=== PATIENT | female | born 1960 | race Caucasian/White ===

== ENCOUNTER → 2016-09-29 | Outpatient (CLI) | payer OTHER ==
[~2016-09-29] MED LIST: ASPI-435 PO; ATEN-173 PO; BUPR-83 PO; CALCTAB5 PO; EFFSR150 PO; EFFSR75 PO; LAMO150T32 PO; MULT-506 PO; ZNTT/150 PO
--- NOTE | 2016-09-29 13:58 | MAMMOGRAPHY REPORT ---
BILATERAL DIGITAL SCREENING MAMMOGRAM TOMOSYNTHESIS WITH CAD: 09/29/2016 TECHNIQUE: Breast tomosynthesis in addition to standard 2D mammography was performed. Current study was also evaluated with a Computer Aided Detection (CAD) system. COMPARISON: Comparison is made to exams dated: 10/01/2015 mammogram, 09/12/2013 mammogram, 09/18/2014 m ammogram, 09/17/2012 mammogram, and 09/01/2011 mammogram - [facility]. BREAST COMPOSITION: There are scattered areas of fibroglandular density in both breasts. FINDINGS: No suspicious masses, calcifications, or areas of architectural distortion are noted in e ither breast. There has been no significant interval change compared to prior exams. Scattered bilat eral benign-appearing calcifications are not significantly changed. IMPRESSION: ACR BI-RADS CATEGORY 2: BENIGN There is no mammographic evidence of malignancy. A 1 year screening mammogram is recommended. The p atient will receive written notification of the results. Approximately 10% of breast cancers are not detected with mammography. A negative mammographic repor t should not delay biopsy if a clinically suggestive mass is present. Tamiko Owens M.D. /:09/29/2016 10:41:35 Cable Worker Helper: Stephanie VELAZQUEZ(Ab)(M), [facility] letter sent: Normal 1/2 BI-RADS Code: ACR BI-RADS Category 2: Benign
== END | disposition home or self-care (01) ==
LOC: C.MAMM 09:14
PROVIDERS: ATTEND Obstetrics & Gynecology
DX: Z12.31 Encounter for screening mammogram for malignant neoplasm of breast (principal)

== ENCOUNTER → 2017-10-05 | Outpatient (CLI) | payer OTHER ==
[~2017-10-05] MED LIST changes: +LAMO150T PO; -LAMO150T32 PO; +RANI150T85 PO; -ZNTT/150 PO
--- NOTE | 2017-10-05 13:36 | MAMMOGRAPHY REPORT ---
BILATERAL DIGITAL SCREENING MAMMOGRAM TOMOSYNTHESIS WITH CAD: 10/05/2017 CLINICAL HISTORY: Routine screening. TECHNIQUE: Breast tomosynthesis in addition to standard 2D mammography was performed. Current study was also evaluated with a Computer Aided Detection (CAD) system. COMPARISON: Comparison is made to exams dated: 09/29/2016 mammogram, 10/01/2015 mammogram, 09/18/2014 m ammogram, 09/12/2013 mammogram, 09/06/2012 mammogram, and 09/01/2011 mammogram - [facility]. BREAST COMPOSITION: There are scattered areas of fibroglandular density in both breasts. FINDINGS: No suspicious masses, calcifications, or areas of architectural distortion are noted in ei ther breast. There has been no significant interval change compared to prior exams. Scattered bilater al benign-appearing calcifications are not significantly changed. IMPRESSION: ACR BI-RADS CATEGORY 2: BENIGN There is no mammographic evidence of malignancy. A 1 year screening mammogram is recommended. The pa tient will receive written notification of the results. Approximately 10% of breast cancers are not detected with mammography. A negative mammographic report should not delay biopsy if a clinically suggestive mass is present. Tamiko Owens M.D. ah/:10/05/2017 12:37:18 Lap Grinder: Negra VELAZQUEZ(R)(M), [facility] letter sent: Normal 1/2 BI-RADS Code: ACR BI-RADS Category 2: Benign
== END | disposition home or self-care (01) ==
LOC: C.MAMM 09:11
PROVIDERS: ATTEND Family Medicine
DX: Z12.31 Encounter for screening mammogram for malignant neoplasm of breast (principal)

== ENCOUNTER → 2017-11-23 | Outpatient (CLI) | payer OTHER | END | disposition home or self-care (01) | LOC: C.LABSPEC 16:59 | PROVIDERS: ATTEND Podiatrist Foot & Ankle Surgery | DX: B35.1 Tinea unguium (principal) ==

== ENCOUNTER → 2017-11-23 | Outpatient (CLI) | payer OTHER ==
[2017-11-23 13:12] LABS: ALBUMIN 3.8 gm/dl (3.4-5.0); ALKALINE PHOSPHATASE 118 U/L (45-117); ALT/SGPT 31 U/L (12-78); AST/SGOT 13 U/L (15-37); TOTAL PROTEIN 7.9 gm/dl (6.4-8.2)
== END | disposition home or self-care (01) ==
LOC: C.LAB 10:43
PROVIDERS: ATTEND Podiatrist Foot & Ankle Surgery
DX: L03.031 Cellulitis of right toe (principal); B35.1 Tinea unguium

== ENCOUNTER 2020-08-09 15:34 | Inpatient (IN) ==
[2020-08-09] MEDS ORDERED: SODIUM CHLORIDE 0.9% 500 ML IV SCH (16:45)
[2020-08-09] MEDS ORDERED: DEXAMETHASONE SOD INJ 10 MG/ML VIAL IV ONE (16:48)
--- NOTE | 2020-08-09 17:29 | Emergency Department Note ---
Impression & Plan Cough, Pneumonia due to COVID-19 virus, Non-ST elevation VA (NSTEMI), Elevated serum creatinine, Respiratory failure ED Provider Note Provider: Toribio Gordillo MD DATE OF SERVICE:08/09/2020 CHIEF COMPLAINT: Shortness of breath, cough HISTORY OF PRESENT ILLNESS: Patient is a 58-year-old female, history of diabetes, hypertension, hyperlipidemia, anxiety presenting here today reporting she has had symptoms of Covid approximately 10 days informed last of a positive test result that was collected a week ago. States of the last 2 days a lot worse with shortness of breath cough and body aches. States some decreased intake and not eating much. Denies significant diarrhea or nausea or vomiting. Denies urinary symptoms. States the cough is severe and does hurt when she coughs. Denies significant chest pain at rest. Denies recent travel. also sick but mildly ill. States uses CPAP at night and has been compliant with this. Denies a significant productive quality of the cough. Has been taking some Tylenol and Motrin at home to help with fevers. REVIEW OF SYSTEMS: A total of 10 review of systems was obtained and negative except as stated above in the HPI. PAST MEDICAL HISTORY: As noted above MEDICATIONS: Reviewed home medication list SOCIAL HISTORY: Non-smoker, lives at home with PHYSICAL EXAM: GENERAL: alert and oriented on stretcher appears fatigued Head: normocephalic and atraumatic EYES: No injection, discharge or icterus. NECK: Trachea midline. ENT: Mucous membranes pink and moist. LUNGS: Airway patent. No retractions but increased work of breathing noted and mild tachypnea HEART: Regular rate and rhythm. No chest wall tenderness ABDOMEN: Soft and non-tender, without guarding or rebound. SKIN: Acyanotic, warm, slightly diaphoretic, without rashes EXTREMITIES: Without swelling, tenderness or deformity NEUROLOGICAL: No focal deficits. No aphasia. No facial droop or slurred speech. Normal strength and tone in the extremities. Sensation to gross touch normal. Ambulatory. EK bpm and normal sinus rhythm. No PVCs or PACs. No acute ST segment elevation or depressions noted. Normal QTC. CONTINUOUS CARDIAC MONITORING: was ordered and showed a heart rate of 96 bpm in normal sinus rhythm Patient's laboratory studies and imaging reviewed. Differential includes Reactive airway disease, pneumonia, pneumothorax, COPD, CHF, infections, cardiac ischemia, pulmonary embolism, musculoskeletal, gastrointestinal, as well as other pathologies. IMPRESSION/MEDICAL DECISION MAKING: Patient is quite fatigued hypoxic requiring oxygen supplementation. Recent positive Covid test. Laboratory tests are concerning with elevated D-dimer as well as a leukocytosis of 22. Urinalysis does appear somewhat contaminated concerning with nitrates and white blood cells with bacteria. Apparently given a dose of cefepime. Procalcitonin 0.26. Lactate 3.4 initially. Patient was given some IV fluid resuscitation here initially as well as IV Decadron given the Covid status. X-ray showed diffuse infiltrates and the CT was completed and the elevated dimer consistent with multifocal pneumonia. Believe this is likely viral but given leukocytosis and questionable urine covered with broad-spectrum cefepime. No evidence of PE given limitations of the CTA. Troponin is somewhat elevated but patient denies pain at rest. Given some Tessalon Perles help with cough. Patient's O2 requirement did escalate to oxy mask at greater than 8 L here to maintain above 90% while at rest. Will require close monitoring as may escalate to need a high flow nasal cannula oxygen. A slight YONG is noted laboratory studies in addition to the initial half liter normal saline, a liter of lactated Ringer's was ordered to exceed 30 ml/kg of IV fluid resuscitation given the elevated lactate given her ideal body weight. Patient was in agreemen t with the plan to stay for further care. Ordered aspirin given the mildly elevated troponin. Believe this is likely demand as opposed to ACS and will defer heparin. Hospital evaluate for admission. DIAGNOSIS: Covid pneumonia, hypoxic respiratory failure, elevated creatinine, acute UTI, NSTEMI DISPOSITION: Hospitalist will evaluate Patient was agreeable with this plan. Critical Care I have personally spent 31 minutes of critical care time in the direct management of this patient. This includes bedside care, interpretation of diagnostic studies, and testing, discussion with consultants, patient, and family members, and other required patient management activities. These 31 minutes is in excess of all separately billable procedures. Past Med/Surg History Medical History (Updated 08/09/20 @ 22:17 by Toribio Gordillo M.D.) Anxiety Cataract Chronic back pain Degenerative disc disease L5-S1 Depression Diabetes mellitus, type 2 NIDDM GERD (gastroesophageal reflux disease) Hyperlipidemia Hypertension Migraine Sleep apnea CPAP Surgical History History of adenoidectomy History of section History of colonoscopy History of endoscopic sinus surgery History of esophagogastroduodenoscopy (EGD) History of nasal septoplasty History of tonsillectomy History of tooth extraction wisdom Social History Smoking Status: Never smoker Second Hand Exposure: No; Hx Alcohol Use: Yes Alcohol type: wine Hx Substance Use: No Preferred Language: Wolof Public Health Informatician Required: No Beliefs That Will Affect Care: None Current Living Situation: Spouse Feels Safe at Home: Yes Assistive Devices: CPAP, Glasses and Hearing Aid - Bilateral Allergies Allergies Allergy/AdvReac Type Severity Reaction Status Date / Time No Known Allergies Allergy Verified 08/09/20 18:45 Home Meds Home Medications Medication Instructions Recorded Confirmed Fish Oil 1 cap PO QAM 10/30/19 08/09/20 aripiprazole 10 mg PO QAM 10/30/19 08/09/20 atenolol 25 mg PO QAM 10/30/19 08/09/20 bupropion HCl [Wellbutrin SR] 200 mg PO BID 10/30/19 08/09/20 calcium carbonate [Calcium 600] 600 mg PO BID 10/30/19 08/09/20 famotidine [Pepcid] 20 mg PO BID 10/30/19 08/09/20 glucosamine-chondroitin 1 tab PO QAM 10/30/19 08/09/20 lamotrigine [Lamictal] 150 mg PO HS 10/30/19 08/09/20 lisinopril 5 mg PO QAM 10/30/19 08/09/20 metformin 1,000 mg PO BID 10/30/19 08/09/20 venlafaxine 75 mg PO PM 10/30/19 08/09/20 venlafaxine 300 mg PO QAM 10/30/19 08/09/20 albuterol sulfate 4 puff INHALATION QID 08/09/20 08/09/20 atorvastatin 20 mg PO HS 08/09/20 08/09/20 folic acid 1 mg PO QAM 08/09/20 08/09/20 multivitamin 1 tab PO QAM 08/09/20 08/09/20 ondansetron HCl 4 mg PO Q8H PRN 08/09/20 08/09/20 prednisone 20 mg PO DIRECTED 08/09/20 08/09/20 sitagliptin [Januvia] 100 mg PO QAM 08/09/20 08/09/20 Previous Rx's Medication Instructions Recorded aspirin 81 mg PO BID #60 tab 11/03/19 Results & Data (ED) Vital Signs Vital Signs - 24 hr 08/09/20 15:43 08/09/20 15:49 08/09/20 16:41 Temperature 36.7 C Temperature Source Temporal Artery Scan Pulse Rate 81 Pulse Rate from SpO2 Sensor Respiratory Rate 24 Respiratory Effort / Characteristics Non-Labored Respiratory Depth Normal Respiratory Pattern Regular Blood Pressure 100/55 L Blood Pressure Mean 70 Blood Pressure Position Sitting Pulse Oximetry 81 L 81 L 79 L Oxygen Delivery Method Room Air Room Air Room Air Nasal Cannula Oxygen Flow Rate 0 Sepsis Recent Fever Within 48 Hours No Sepsis New/Unexplained Change in Mental Status No Sepsis Action Taken by Nursing No Action Required Oxygen Flow Rate - Titration 2 4 Pulse Oximetry Post Tiitration 91 93 08/09/20 18:01 08/09/20 18:32 08/09/20 20:12 Temperature Temperature Source Pulse Rate 100 H Pulse Rate from SpO2 Sensor 97 H 93 H Respiratory Rate 10 L Respiratory Effort / Characteristics Respiratory Depth Respiratory Pattern Blood Pressure 98/43 L 98/45 L Blood Pressure Mean 75 70 Blood Pressure Position Pulse Oximetry 90 87 L 89 L Oxygen Delivery Method Nasal Cannula Nasal Cannula Oxymask Oxymask Oxygen Flow Rate 4 5 6 Sepsis Recent Fever Within 48 Hours Sepsis New/Unexplained Change in Mental Status Sepsis Action Taken by Nursing Oxygen Flow Rate - Titration 6 Pulse Oximetry Post Tiitration 93 08/09/20 20:32 08/09/20 21:01 08/09/20 22:00 Temperature Temperature Source Pulse Rate 86 93 H Pulse Rate from SpO2 Sensor 87 Respiratory Rate 19 28 H Respiratory Effort / Characteristics Respiratory Depth Respiratory Pattern Blood Pressure 119/71 132/48 L Blood Pressure Mean 88 81 Blood Pressure Position Pulse Oximetry 87 L 92 92 Oxygen Delivery Method Oxymask Oxymask Oxymask Oxygen Flow Rate 6 8 8 Sepsis Recent Fever Within 48 Hours Sepsis New/Unexplained Change in Mental Status Sepsis Action Taken by Nursing Oxygen Flow Rate - Titration 8 Pulse Oximetry Post Tiitration 90 Laboratory Data Result diagrams: 08/09/20 17:24 08/09/20 17:24 Lab Results 08/09/20 08/09/20 08/09/20 Range/Units 17:24 17:24 17:24 WBC 22.75 H (4.8-10.8) K/uL RBC 4.41 (4.2-5.4) M/uL Hgb 12.9 (12.0-16.0) g/dL Hct 38.3 (37-47) % MCV 86.8 (80-100) fL MCH 29.3 (25-34) pg MCHC 33.7 (32-36) g/dL RDW Std Deviation 44.7 (36.4-46.3) fL RDW Coeff of Jason 14.0 (11.5-14.5) % Plt Count 474 H (130-400) K/uL MPV 9.7 (7.4-10.4) fL Immature Gran % (Auto) 1.0 % Neut % (Auto) 88.6 % Lymph % (Auto) 5.7 % [place] % (Auto) 4.7 % Eos % (Auto) 0.0 % Baso % (Auto) 0.0 % Neut # (Auto) 20.14 H (1.4-6.5) K/uL Lymph # (Auto) 1.30 (1.2-3.4) K/uL [place] # (Auto) 1.08 H (0.11-0.59) K/uL Eos # (Auto) 0.00 (0-0.5) K/uL Baso # (Auto) 0.01 (0-0.2) K/uL Immature Gran # (Auto) 0.22 H (0.00-0.02) K/uL PT 10.2 (9.0-12.0) Seconds INR 1.0 (0.9-1.1) D-Dimer 690 H* (0-500) ug/L FEU ABG pH ABG pCO2 ABG pO2 ABG HCO3 ABG O2 Saturation ABG Base Excess John Test Barometric Pressure Oxygen Given Sodium (136-145) mmol/L Potassium (3.5-5.1) mmol/L Chloride (98-107) mmol/L Carbon Dioxide (21-32) mmol/L Anion Gap (3-11) BUN (7-18) mg/dl Creatinine (0.6-1.2) mg/dl Est Cr Clr Drug Dosing Est GFR ( Amer) Est GFR (Non-Af Amer) BUN/Creatinine Ratio (10-20) Glucose (70-99) mg/dl Lactate (0.4-2.0) mmol/L Calcium (8.5-10.1) mg/dl Magnesium (1.8-2.4) mg/dl Total Bilirubin (0.2-1) mg/dl AST (15-37) U/L ALT (12-78) U/L Alkaline Phosphatase (45-117) U/L Troponin I (0-0.045) ng/ml C-Reactive Protein (0-0.29) mg/dl Total Protein (6.4-8.2) gm/dl Albumin (3.4-5.0) gm/dl Globulin (2.5-4.0) gm/dl Albumin/Globulin Ratio (0.9-2) Procalcitonin (0-0.5) ng/ml TSH (0.300-4.500) uIu/ml Urine Color Urine Appearance (Clear) Urine pH (4.5-7.5) Ur Specific [place] (1.000-1.030) Urine Protein (Negative) Urine Glucose (UA) (Negative) Urine Ketones (Negative) Urine Blood (Negative) Urine Nitrite (Negative) Urine Bilirubin (Negative) Urine Urobilinogen (Negative) Ur Leukocyte Esterase (Negative) Urine WBC (Auto) (0-5) /hpf Urine RBC (Auto) (0-4) /hpf U Hyaline Cast (Auto) (0-5) /lpf U Epithel Cells (Auto) (0-5) /lpf Urine Bacteria (Auto) (Negative) Blood Type A Positive Antibody Screen NEGATIVE 08/09/20 08/09/20 08/09/20 Range/Units 17:24 17:24 17:24 WBC (4.8-10.8) K/uL RBC (4.2-5.4) M/uL Hgb (12.0-16.0) g/dL Hct (37-47) % MCV (80-100) fL MCH (25-34) pg MCHC (32-36) g/dL RDW Std Deviation (36.4-46.3) fL RDW Coeff of Jason (11.5-14.5) % Plt Count (130-400) K/uL MPV (7.4-10.4) fL Immature Gran % (Auto) % Neut % (Auto) % Lymph % (Auto) % [place] % (Auto) % Eos % (Auto) % Baso % (Auto) % Neut # (Auto) (1.4-6.5) K/uL Lymph # (Auto) (1.2-3.4) K/uL [place] # (Auto) (0.11-0.59) K/uL Eos # (Auto) (0-0.5) K/uL Baso # (Auto) (0-0.2) K/uL Immature Gran # (Auto) (0.00-0.02) K/uL PT (9.0-12.0) Seconds INR (0.9-1.1) D-Dimer (0-500) ug/L FEU ABG pH ABG pCO2 ABG pO2 ABG HCO3 ABG O2 Saturation ABG Base Excess John Test Barometric Pressure Oxygen Given Sodium 133 L (136-145) mmol/L Potassium 3.5 (3.5-5.1) mmol/L Chloride 100 (98-107) mmol/L Carbon Dioxide 23 (21-32) mmol/L Anion Gap 10.0 (3-11) BUN 50 H (7-18) mg/dl Creatinine 1.47 H (0.6-1.2) mg/dl Est Cr Clr Drug Dosing Not Reportable Est GFR ( Amer) 44.2 Est GFR (Non-Af Amer) 38.1 BUN/Creatinine Ratio 34.3 H (10-20) Glucose 207 H (70-99) mg/dl Lactate 3.4 H* (0.4-2.0) mmol/L Calcium 8.9 (8.5-10.1) mg/dl Magnesium 2.5 H (1.8-2.4) mg/dl Total Bilirubin 0.3 (0.2-1) mg/dl AST 48 H (15-37) U/L ALT 37 (12-78) U/L Alkaline Phosphatase 71 (45-117) U/L Troponin I 0.365 H* (0-0.045) ng/ml C-Reactive Protein 6.71 H (0-0.29) mg/dl Total Protein 7.0 (6.4-8.2) gm/dl Albumin 2.5 L (3.4-5.0) gm/dl Globulin 4.5 H (2.5-4.0) gm/dl Albumin/Globulin Ratio 0.6 L (0.9-2) Procalcitonin 0.26 (0-0.5) ng/ml TSH 0.558 (0.300-4.500) uIu/ml Urine Color Urine Appearance (Clear) Urine pH (4.5-7.5) Ur Specific [place] (1.000-1.030) Urine Protein (Negative) Urine Glucose (UA) (Negative) Urine Ketones (Negative) Urine Blood (Negative) Urine Nitrite (Negative) Urine Bilirubin (Negative) Urine Urobilinogen (Negative) Ur Leukocyte Esterase (Negative) Urine WBC (Auto) (0-5) /hpf Urine RBC (Auto) (0-4) /hpf U Hyaline Cast (Auto) (0-5) /lpf U Epithel Cells (Auto) (0-5) /lpf Urine Bacteria (Auto) (Negative) Blood Type Antibody Screen 08/09/20 08/09/20 08/09/20 Range/Units 17:24 20:00 20:45 WBC (4.8-10.8) K/uL RBC (4.2-5.4) M/uL Hgb (12.0-16.0) g/dL Hct (37-47) % MCV (80-100) fL MCH (25-34) pg MCHC (32-36) g/dL RDW Std Deviation (36.4-46.3) fL RDW Coeff of Jason (11.5-14.5) % Plt Count (130-400) K/uL MPV (7.4-10.4) fL Immature Gran % (Auto) % Neut % (Auto) % Lymph % (Auto) % [place] % (Auto) % Eos % (Auto) % Baso % (Auto) % Neut # (Auto) (1.4-6.5) K/uL Lymph # (Auto) (1.2-3.4) K/uL [place] # (Auto) (0.11-0.59) K/uL Eos # (Auto) (0-0.5) K/uL Baso # (Auto) (0-0.2) K/uL Immature Gran # (Auto) (0.00-0.02) K/uL PT (9.0-12.0) Seconds INR (0.9-1.1) D-Dimer (0-500) ug/L FEU ABG pH ABG pCO2 ABG pO2 ABG HCO3 ABG O2 Saturation ABG Base Excess John Test Barometric Pressure Oxygen Given Sodium (136-145) mmol/L Potassium (3.5-5.1) mmol/L Chloride (98-107) mmol/L Carbon Dioxide (21-32) mmol/L Anion Gap (3-11) BUN (7-18) mg/dl Creatinine (0.6-1.2) mg/dl Est Cr Clr Drug Dosing Est GFR ( Amer) Est GFR (Non-Af Amer) BUN/Creatinine Ratio (10-20) Glucose (70-99) mg/dl Lactate Cancelled (0.4-2.0) mmol/L Calcium (8.5-10.1) mg/dl Magnesium Cancelled (1.8-2.4) mg/dl Total Bilirubin (0.2-1) mg/dl AST (15-37) U/L ALT (12-78) U/L Alkaline Phosphatase (45-117) U/L Troponin I (0-0.045) ng/ml C-Reactive Protein (0-0.29) mg/dl Total Protein (6.4-8.2) gm/dl Albumin (3.4-5.0) gm/dl Globulin (2.5-4.0) gm/dl Albumin/Globulin Ratio (0.9-2) Procalcitonin (0-0.5) ng/ml TSH Cancelled (0.300-4.500) uIu/ml Urine Color Yellow Urine Appearance Cloudy A (Clear) Urine pH 6.0 (4.5-7.5) Ur Specific [place] 1.022 (1.000-1.030) Urine Protein 1+ H (Negative) Urine Glucose (UA) Negative (Negative) Urine Ketones Negative (Negative) Urine Blood Negative (Negative) Urine Nitrite Positive A (Negative) Urine Bilirubin Negative (Negative) Urine Urobilinogen Negative (Negative) Ur Leukocyte Esterase 2+ H (Negative) Urine WBC (Auto) >30 H (0-5) /hpf Urine RBC (Auto) 5-10 H (0-4) /hpf U Hyaline Cast (Auto) 1-5 (0-5) /lpf U Epithel Cells (Auto) >30 H (0-5) /lpf Urine Bacteria (Auto) 4+ H (Negative) Blood Type Antibody Screen 08/09/20 Range/Units 20:45 WBC (4.8-10.8) K/uL RBC (4.2-5.4) M/uL Hgb (12.0-16.0) g/dL Hct (37-47) % MCV (80-100) fL MCH (25-34) pg MCHC (32-36) g/dL RDW Std Deviation (36.4-46.3) fL RDW Coeff of Jason (11.5-14.5) % Plt Count (130-400) K/uL MPV (7.4-10.4) fL Immature Gran % (Auto) % Neut % (Auto) % Lymph % (Auto) % [place] % (Auto) % Eos % (Auto) % Baso % (Auto) % Neut # (Auto) (1.4-6.5) K/uL Lymph # (Auto) (1.2-3.4) K/uL [place] # (Auto) (0.11-0.59) K/uL Eos # (Auto) (0-0.5) K/uL Baso # (Auto) (0-0.2) K/uL Immature Gran # (Auto) (0.00-0.02) K/uL PT (9.0-12.0) Seconds INR (0.9-1.1) D-Dimer (0-500) ug/L FEU ABG pH Cancelled ABG pCO2 Cancelled ABG pO2 Cancelled ABG HCO3 Cancelled ABG O2 Saturation Cancelled ABG Base Excess Cancelled John Test Cancelled Barometric Pressure Cancelled Oxygen Given Cancelled Sodium (136-145) mmol/L Potassium (3.5-5.1) mmol/L Chloride (98-107) mmol/L Carbon Dioxide (21-32) mmol/L Anion Gap (3-11) BUN (7-18) mg/dl Creatinine (0.6-1.2) mg/dl Est Cr Clr Drug Dosing Est GFR ( Amer) Est GFR (Non-Af Amer) BUN/Creatinine Ratio (10-20) Glucose (70-99) mg/dl Lactate (0.4-2.0) mmol/L Calcium (8.5-10.1) mg/dl Magnesium (1.8-2.4) mg/dl Total Bilirubin (0.2-1) mg/dl AST (15-37) U/L ALT (12-78) U/L Alkaline Phosphatase (45-117) U/L Troponin I (0-0.045) ng/ml C-Reactive Protein (0-0.29) mg/dl Total Protein (6.4-8.2) gm/dl Albumin (3.4-5.0) gm/dl Globulin (2.5-4.0) gm/dl Albumin/Globulin Ratio (0.9-2) Procalcitonin (0-0.5) ng/ml TSH (0.300-4.500) uIu/ml Urine Color Urine Appearance (Clear) Urine pH (4.5-7.5) Ur Specific [place] (1.000-1.030) Urine Protein (Negative) Urine Glucose (UA) (Negative) Urine Ketones (Negative) Urine Blood (Negative) Urine Nitrite (Negative) Urine Bilirubin (Negative) Urine Urobilinogen (Negative) Ur Leukocyte Esterase (Negative) Urine WBC (Auto) (0-5) /hpf Urine RBC (Auto) (0-4) /hpf U Hyaline Cast (Auto) (0-5) /lpf U Epithel Cells (Auto) (0-5) /lpf Urine Bacteria (Auto) (Negative) Blood Type Antibody Screen Administered Medications Discontinued Medications Aspirin (Aspirin Chew 324 Mg) 324 mg PO NOW STA Stop: 08/09/20 21:13 Last Admin: 08/09/20 21:54 Dose: 324 mg Documented by: [id number] Benzonatate (Benzonatate 100 Mg Capsule) 100 mg PO NOW ONE Stop: 08/09/20 18:26 Last Admin: 08/09/20 18:32 Dose: 100 mg Documented by: [id number] Dexamethasone (Dexamethasone Sod Inj 10 Mg/Ml Vial) 6 mg IV NOW ONE Stop: 08/09/20 16:49 Last Admin: 08/09/20 17:19 Dose: 6 mg Documented by: [id number] Guaifenesin/Codeine Phosphate (Guaifenesin/Codeine 100mg/10mg 5ml Udc) 5 ml PO NOW STA Stop: 08/09/20 21:07 Last Admin: 08/09/20 21:54 Dose: 5 ml Documented by: [id number] Sodium Chloride (Nss) 500 mls @ 999 mls/hr IV .Q31M SAMIA Stop: 08/09/20 17:15 Last Infusion: 08/09/20 18:19 Dose: 0 mls/hr Documented by: [id number] Admin: 08/09/20 17:19 Dose: 999 mls/hr Documented by: [id number] Cefepime HCl (Maxipime) 2,000 mg in 20 mls @ 5 mls/min IV NOW STA; Protocol Stop: 08/09/20 18:27 Last Admin: 08/09/20 19:04 Dose: 5 mls/min Documented by: [id number] Ioversol (Optiray 320 125ml) 120 ml IV ONCE ONE Stop: 08/09/20 19:33 Last Admin: 08/09/20 19:32 Dose: 120 ml Documented by: [id number] Discharge Plan Visit Data Chief Complaint: Cough Stated Complaint: covid +, weakness, cough ED Provider: Toribio Gordillo Discharge Problem: Cough, Pneumonia due to COVID-19 virus, Non-ST elevation [place] (NSTEMI), Elevated serum creatinine, Respiratory failure Patient Disposition: Admitted As Inpatient Condition: Fair Forms Stand Alone Forms: [facility] Prescriptions Prescriptions: No Action lamotrigine [Lamictal] 150 mg Tablet 150 mg PO HS RF: 0 venlafaxine 75 mg Capsule,Extended Release 24hr 75 mg PO PM RF: 0 atenolol 25 mg Tablet 25 mg PO QAM RF: 0 calcium carbonate [Calcium 600] 600 mg calcium (1,500 mg) Tablet 600 mg PO BID RF: 0 famotidine [Pepcid] 20 mg Tablet 20 mg PO BID RF: 0 glucosamine-chondroitin 500-400 mg Tablet 1 tab PO QAM RF: 0 bupropion HCl [Wellbutrin SR] 200 mg Tablet Sustained-Release 12 Hr 200 mg PO BID RF: 0 aripiprazole 10 mg Tablet 10 mg PO QAM RF: 0 metformin 1,000 mg Tablet Extended Release 24hr 1,000 mg PO BID RF: 0 venlafaxine 150 mg Tablet Extended Release 24hr 300 mg PO QAM RF: 0 Fish Oil 900-1,400 mg Capsule,Delayed Release(Dr/Ec) 1 cap PO QAM RF: 0 lisinopril 5 mg Tablet 5 mg PO QAM RF: 0 aspirin 81 mg tablet,delayed release (DR/EC) 81 mg PO BID Qty: 60 RF: 0 multivitamin Tablet 1 tab PO QAM RF: 0 atorvastatin 20 mg tablet 20 mg PO HS RF: 0 ondansetron HCl 4 mg tablet 4 mg PO Q8H PRN (Reason: Nausea) RF: 0 prednisone 20 mg tablet 20 mg PO DIRECTED RF: 0 folic acid 1 mg tablet 1 mg PO QAM RF: 0 albuterol sulfate 90 mcg/actuation HFA aerosol inhaler 4 puff INHALATION QID RF: 0 Januvia 100 mg tablet 100 mg PO QAM RF: 0 Referrals Referrals: Reyes Petit MD [Primary Care Provider] - Discharge Problem: Respiratory failure Qualifiers: Chronicity: acute Respiratory failure complication: hypoxia Qualified Code(s): J96.01 - Acute respiratory failure with hypoxia
--- NOTE | 2020-08-09 17:50 | XRay Report ---
XR chest 1V portable CLINICAL HISTORY: sob COMPARISON STUDY: 11/03/2019 FINDINGS: The heart remains enlarged. There are extensive bilateral pulmonary airspace opacities with a slight peripheral distribution. This reason, a multifocal pneumonia is favored over pulmonary che a. Clinical and radiographic follow-up is recommended. Correlation with Covid 19 testing is suggested .[ IMPRESSION: Extensive bilateral pulmonary airspace opacities. A multifocal pneumonia is favored over pulmonary edema. Clinical and radiographic follow-up is recommended. ACT 112: Negative or not required by law. Electronically signed by: Evans Kim M.D. 08/09/2020 5:49 PM
[2020-08-09 17:53] LABS: Hematocrit (blood only) 38.3 % (37-47); Hemoglobin 12.9 g/dL (12.0-16.0); Mean Corpuscular Hemoglobin 29.3 pg (25-34); Mean Corpuscular Hgb Conc 33.7 g/dL (32-36); Mean Corpuscular Volume 86.8 fL (80-100); Mean Platelet Volume 9.7 fL (7.4-10.4); Platelet Count 474 K/uL (130-400); RDW Standard Deviation 44.7 fL (36.4-46.3); Red Blood Count 4.41 M/uL (4.2-5.4); White Blood Count 22.75 K/uL (4.8-10.8)
[2020-08-09 18:04] LABS: Appearance Urine Cloudy (Clear); Bacteria Urine Automated 4+ (Negative); Bilirubin Urine Negative (Negative); Blood Urine Negative (Negative); Color Urine Yellow; Epithelial Cell Urine Auto >30 /lpf (0-5); Glucose Urine UA Negative (Negative); Ketones Urine Negative (Negative); Leukocyte Esterase Urine 2+ (Negative); Nitrite Urine Positive (Negative); Protein Urine 1+ (Negative); Prothrombin Time 10.2 Seconds (9.0-12.0); Specific Gravity Urine 1.022 (1.000-1.030); Urobilinogen Urine Negative (Negative); WBC Urine Automated >30 /hpf (0-5)
[2020-08-09 18:16] LABS: Basophils # (auto) 0.01 K/uL (0-0.2); Immature Granulocytes # (auto) 0.22 K/uL (0.00-0.02); Lymphocytes % (auto) 5.7 %; Monocytes # (auto) 1.08 K/uL (0.11-0.59); Monocytes % (auto) 4.7 %; Neutrophils # (auto) 20.14 K/uL (1.4-6.5); Neutrophils % (auto) 88.6 %
[2020-08-09 18:17] LABS: D Dimer 690 ug/L FEU (0-500)
[2020-08-09 18:22] LABS: Alanine Aminotransferase 37 U/L (12-78); Albumin Level 2.5 gm/dl (3.4-5.0); Aspartate Aminotransferase 48 U/L (15-37); BUN Creatinine Ratio 34.3 (10-20); Blood Urea Nitrogen 50 mg/dl (7-18); C Reactive Protein 6.71 mg/dl (0-0.29); Calcium 8.9 mg/dl (8.5-10.1); Carbon Dioxide 23 mmol/L (21-32); Chloride 100 mmol/L (98-107); Est GFR (African American) 44.2; Est GFR (Non-African American) 38.1; Glucose 207 mg/dl (70-99); Potassium 3.5 mmol/L (3.5-5.1); Sodium 133 mmol/L (136-145)
[2020-08-09] MEDS ORDERED: CEFEPIME 2,000 MG/20 ML VIAL IV STA (18:24)
[2020-08-09] MEDS ORDERED: BENZONATATE 100 MG CAPSULE PO ONE (18:25)
[2020-08-09 18:29] LABS: Albumin Globulin Ratio 0.6 (0.9-2); Alkaline Phosphatase 71 U/L (45-117); Bilirubin,Total 0.3 mg/dl (0.2-1); Globulin 4.5 gm/dl (2.5-4.0); Troponin I 0.365 ng/ml (0-0.045)
[2020-08-09] MEDS ORDERED: OPTIRAY 320 125ml IV ONE (19:32)
--- NOTE | 2020-08-09 19:46 | CT Scan Report ---
CT ANGIOGRAM OF THE CHEST CLINICAL HISTORY: Shortness of breath. Possible pulmonary embolism. Abnormal chest x-ray. COMPARISON STUDY: CT scan performed September 2018, chest x-ray performed August 2020 TECHNIQUE: Following the IV administration of 120 mL of Optiray-320, CT angiogram of the thorax was p erformed from the thoracic inlet to the lung bases utilizing the pulmonary embolus protocol. Images a re reviewed in the axial, sagittal, and coronal planes. IV contrast was administered without complica tion. MIP imaging was performed. A dose lowering technique was utilized adhering to the principles o f ALARA. CT DOSE: 548.08 mGycm FINDINGS: There is hepatic steatosis. There is cholelithiasis. There is mild distal esophageal wall thickening. There is mild mediastinal and hilar adenopathy, likely reactive. There was no evidence of thoracic aortic dilatation. There are no pulmonary artery filling defects to indicate acute pulmonary embolism. Evaluation is abad ited due to significant respiratory motion artifact. No pleural effusions are visualized. There are extensive multifocal groundglass pulmonary opacities. The findings are consistent with a mu ltifocal pneumonia. The appearance is typical although not specific for Covid 19 pneumonia. IMPRESSION: 1. Motion compromised study 2. No evidence of acute pulmonary embolism given the technical limitations of the examination 3. Extensive bilateral groundglass pulmonary opacities consistent with a multifocal pneumonia 4. Mild adenopathy likely reactive. 5. Hepatic steatosis. Cholelithiasis. ACT 112: Negative or not required by law. Electronically signed by: Evans Kim M.D. 08/09/2020 7:45 PM
[2020-08-09] MEDS ORDERED: DOXYCYCLINE HYCLATE 100 MG in DEXTROSE 5% 100 ML IV STA (21:06)
[2020-08-09] MEDS ORDERED: guaiFENesin/CODEINE 100MG/10MG 5ML UDC PO STA (21:06)
--- NOTE | 2020-08-09 21:07 | History & Physical Report ---
Date of Service August 09, 2020 Assessment & Plan (1) Severe sepsis: SIRS plus lactic elevation plus hypoxemia plus acute renal failure Possible sources : Severe COVID-19 pneumonia Complicated UTI rule out obstructive uropathy Rule out C. difficile hypertension, BP on the lower side ADD, mood disorder, stable as per patient DM2 on oral meds, well-controlled as of recent hemoglobin A1c of 6.11 Dec 2019. Medical telemetry Supplemental O2 Decadron for severe COVID-19 pneumonia Remdesivir first dose now Doxycycline for bronchopneumonia Pulmonary consult if without improvement Follow cultures, Cefepime Stool C. difficile IVF, follow lactic acid and renal function CT abdomen pelvis RE abdominal pain with UTI and diarrhea symptoms Appropriate to hold lisinopril for now until creatinine back to baseline Basal insulin, ISS BG goal [id number], update hemoglobin A1c DVT prophylaxis. Heparin subcu Full code Text document was generated using [employer] Elite voice recognition software. It may contain grammatical or spelling errors. Kindly contact undersigned for clarification of any documentation item in question. History of Present Illness Chief Complaint: Cough, worsening shortness of breath Primary Care Provider: Reyes Petit MD History obtained from patient and records. Medical history significant for hypertension, hyperlipidemia, ADD, mood disorder, DM 2 on oral medications. 1 week history of flulike symptoms later followed by junky cough symptoms, shortness of breath. 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 Patient later noted achy abdominal pain, increased urinary frequency/incontinence symptoms and loose stools. Chest pain from coughing. Patient O2 sats 80s upon arrival at the ER. Decadron given for COVID-19 pneumonia. Cefepime given for UTI. 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 Allergies Allergy/AdvReac Type Severity Reaction Status Date / Time No Known Allergies Allergy Verified 08/09/20 18:45 Home Medications Medication Instructions Recorded Confirmed Type Fish Oil 1 cap PO QAM 10/30/19 08/09/20 History aripiprazole 10 mg PO QAM 10/30/19 08/09/20 History atenolol 25 mg PO QAM 10/30/19 08/09/20 History bupropion HCl [Wellbutrin SR] 200 mg PO BID 10/30/19 08/09/20 History calcium carbonate [Calcium 600] 600 mg PO BID 10/30/19 08/09/20 History famotidine [Pepcid] 20 mg PO BID 10/30/19 08/09/20 History glucosamine-chondroitin 1 tab PO QAM 10/30/19 08/09/20 History lamotrigine [Lamictal] 150 mg PO HS 10/30/19 08/09/20 History lisinopril 5 mg PO QAM 10/30/19 08/09/20 History metformin 1,000 mg PO BID 10/30/19 08/09/20 History venlafaxine 75 mg PO PM 10/30/19 08/09/20 History venlafaxine 300 mg PO QAM 10/30/19 08/09/20 History aspirin 81 mg PO BID #60 tab 11/03/19 08/09/20 Rx albuterol sulfate 4 puff INHALATION QID 08/09/20 08/09/20 History atorvastatin 20 mg PO HS 08/09/20 08/09/20 History folic acid 1 mg PO QAM 08/09/20 08/09/20 History multivitamin 1 tab PO QAM 08/09/20 08/09/20 History ondansetron HCl 4 mg PO Q8H PRN 08/09/20 08/09/20 History prednisone 20 mg PO DIRECTED 08/09/20 08/09/20 History sitagliptin [Januvia] 100 mg PO QAM 08/09/20 08/09/20 History Past Med/Surg History Medical History (Updated 08/10/20 @ 13:29 by Joseph Duggan MD) Anxiety Cataract Chronic back pain Degenerative disc disease L5-S1 Depression Diabetes mellitus, type 2 NIDDM GERD (gastroesophageal reflux disease) Hyperlipidemia Hypertension Migraine Sleep apnea CPAP Surgical History History of adenoidectomy History of section History of colonoscopy History of endoscopic sinus surgery History of esophagogastroduodenoscopy (EGD) History of nasal septoplasty History of tonsillectomy History of tooth extraction wisdom Social History Smoking Status: Never smoker Second Hand Exposure: No; Hx Alcohol Use: Yes Alcohol type: wine Hx Substance Use: No Preferred Language: Hebrew Communication Ability: Effective Combined Rail Operator Required: No Beliefs That Will Affect Care: None Current Living Situation: Spouse Feels Safe at Home: Yes Assistive Devices: CPAP and Glasses Review of Systems Review of Systems: As per HPI, all 10 systems reviewed, all other ROS negative Physical Exam Physical Exam: GENERAL: Slightly uncomfortable, ill looking, minimal respiratory distress, morbidly obese SKIN: Normal color, warm HEENT: Bespectacled, pale palpebral conjunctivae, no ptosis, dry buccal mucosa, nasal cannula in place NECK : Supple, short neck, no tenderness CHEST : Decreased breath sounds, expiratory wheezes , no tenderness HEART : RRR, no obvious murmurs ABDOMEN: Some distention, nontender EXTREMITIES : No LE swelling/tenderness, no other conspicuous deformities noted NEUROLOGIC : Coherent, no facial asymmetry, no other gross focality Results & Data Results & Data ([facility]) Vital Signs (Past 12 Hours) Vital Signs Temp Pulse Resp BP Pulse Ox 08/09/20 20:32 87 L 08/09/20 20:12 98/45 L 89 L 08/09/20 18:32 87 L 08/09/20 18:01 100 H 10 L 98/43 L 90 08/09/20 16:41 79 L 08/09/20 15:49 81 L 08/09/20 15:43 36.7 C 81 24 100/55 L 81 L Laboratory Results Laboratory Results WBC 22.75 K/uL (4.8-10.8) H 08/09/20 17:24 RBC 4.41 M/uL (4.2-5.4) 08/09/20 17:24 Hgb 12.9 g/dL (12.0-16.0) 08/09/20 17:24 Hct 38.3 % (37-47) 08/09/20 17:24 MCV 86.8 fL (80-100) 08/09/20 17:24 MCH 29.3 pg (25-34) 08/09/20 17:24 MCHC 33.7 g/dL (32-36) 08/09/20 17:24 RDW Std Deviation 44.7 fL (36.4-46.3) 08/09/20 17:24 RDW Coeff of Jason 14.0 % (11.5-14.5) 08/09/20 17:24 Plt Count 474 K/uL (130-400) H 08/09/20 17:24 MPV 9.7 fL (7.4-10.4) 08/09/20 17:24 Immature Gran % (Auto) 1.0 % 08/09/20 17:24 Neut % (Auto) 88.6 % 08/09/20 17:24 Lymph % (Auto) 5.7 % 08/09/20 17:24 [place] % (Auto) 4.7 % 08/09/20 17:24 Eos % (Auto) 0.0 % 08/09/20 17:24 Baso % (Auto) 0.0 % 08/09/20 17:24 Neut # (Auto) 20.14 K/uL (1.4-6.5) H 08/09/20 17:24 Lymph # (Auto) 1.30 K/uL (1.2-3.4) 08/09/20 17:24 [place] # (Auto) 1.08 K/uL (0.11-0.59) H 08/09/20 17:24 Eos # (Auto) 0.00 K/uL (0-0.5) 08/09/20 17:24 Baso # (Auto) 0.01 K/uL (0-0.2) 08/09/20 17:24 Immature Gran # (Auto) 0.22 K/uL (0.00-0.02) H 08/09/20 17:24 PT 10.2 Seconds (9.0-12.0) 08/09/20 17:24 INR 1.0 (0.9-1.1) 08/09/20 17:24 D-Dimer 690 ug/L FEU (0-500) H* 08/09/20 17:24 ABG pH Cancelled 08/09/20 20:45 ABG pCO2 Cancelled 08/09/20 20:45 ABG pO2 Cancelled 08/09/20 20:45 ABG HCO3 Cancelled 08/09/20 20:45 ABG O2 Saturation Cancelled 08/09/20 20:45 ABG Base Excess Cancelled 08/09/20 20:45 John Test Cancelled 08/09/20 20:45 Barometric Pressure Cancelled 08/09/20 20:45 Oxygen Given Cancelled 08/09/20 20:45 Sodium 133 mmol/L (136-145) L 08/09/20 17:24 Potassium 3.5 mmol/L (3.5-5.1) 08/09/20 17:24 Chloride 100 mmol/L (98-107) 08/09/20 17:24 Carbon Dioxide 23 mmol/L (21-32) 08/09/20 17:24 Anion Gap 10.0 (3-11) 08/09/20 17:24 BUN 50 mg/dl (7-18) H 08/09/20 17:24 Creatinine 1.47 mg/dl (0.6-1.2) H 08/09/20 17:24 Est Cr Clr Drug Dosing Not Reportable 08/09/20 17:24 Est GFR ( Amer) 44.2 08/09/20 17:24 Est GFR (Non-Af Amer) 38.1 08/09/20 17:24 BUN/Creatinine Ratio 34.3 (10-20) H 08/09/20 17:24 Glucose 207 mg/dl (70-99) H 08/09/20 17:24 Lactate 3.4 mmol/L (0.4-2.0) H* 08/09/20 17:24 Calcium 8.9 mg/dl (8.5-10.1) 08/09/20 17:24 Magnesium Cancelled 08/09/20 20:00 Total Bilirubin 0.3 mg/dl (0.2-1) 08/09/20 17:24 AST 48 U/L (15-37) H 08/09/20 17:24 ALT 37 U/L (12-78) 08/09/20 17:24 Alkaline Phosphatase 71 U/L (45-117) 08/09/20 17:24 Troponin I 0.365 ng/ml (0-0.045) H* 08/09/20 17:24 C-Reactive Protein 6.71 mg/dl (0-0.29) H 08/09/20 17:24 Total Protein 7.0 gm/dl (6.4-8.2) 08/09/20 17:24 Albumin 2.5 gm/dl (3.4-5.0) L 08/09/20 17:24 Globulin 4.5 gm/dl (2.5-4.0) H 08/09/20 17:24 Albumin/Globulin Ratio 0.6 (0.9-2) L 08/09/20 17:24 Procalcitonin 0.26 ng/ml (0-0.5) 08/09/20 17:24 TSH Cancelled 08/09/20 20:00 Urine Color Yellow 08/09/20 17:24 Urine Appearance Cloudy (Clear) A 08/09/20 17:24 Urine pH 6.0 (4.5-7.5) 08/09/20 17:24 Ur Specific [place] 1.022 (1.000-1.030) 08/09/20 17:24 Urine Protein 1+ (Negative) H 08/09/20 17:24 Urine Glucose (UA) Negative (Negative) 08/09/20 17:24 Urine Ketones Negative (Negative) 08/09/20 17:24 Urine Blood Negative (Negative) 08/09/20 17:24 Urine Nitrite Positive (Negative) A 08/09/20 17:24 Urine Bilirubin Negative (Negative) 08/09/20 17:24 Urine Urobilinogen Negative (Negative) 08/09/20 17:24 Ur Leukocyte Esterase 2+ (Negative) H 08/09/20 17:24 Urine WBC (Auto) >30 /hpf (0-5) H 08/09/20 17:24 Urine RBC (Auto) 5-10 /hpf (0-4) H 08/09/20 17:24 U Hyaline Cast (Auto) 1-5 /lpf (0-5) 08/09/20 17:24 U Epithel Cells (Auto) >30 /lpf (0-5) H 08/09/20 17:24 Urine Bacteria (Auto) 4+ (Negative) H 08/09/20 17:24 Blood Type A Positive 08/09/20 17:24 Antibody Screen NEGATIVE 08/09/20 17:[address] chest: 1. Motion compromised study 2. No evidence of acute pulmonary embolism given the technical limitations of the examination 3. Extensive bilateral groundglass pulmonary opacities consistent with a multifocal pneumonia 4. Mild adenopathy likely reactive. 5. Hepatic steatosis. Cholelithiasis. EKG as per my interpretation: Rate 90, NSR, normal axis, LAE, low voltage, septal infarct
[2020-08-09] MEDS ORDERED: LACTATED RINGER'S 1,000 ML IV ONE ×3 (21:12→22:33)
[2020-08-09] MEDS ORDERED: ASPIRIN CHEW 324 MG PO STA (21:12)
[2020-08-09 21:22] LABS: Magnesium 2.5 mg/dl (1.8-2.4); Thyroid Stimulating Hormone 0.558 uIu/ml (0.300-4.500)
[2020-08-09 21:54] LABS: Base Excess ABG -1.9 mEq/L (-9-1.8); HCO3 ABG 22 mmol/L (19-24); Oxygen Saturation ABG 85.8 % (90-95); PCO2 ABG 37 mmHg (35-46); PO2 ABG 52 mmHg (80-95); pH ABG 7.41 (7.35-7.45)
[2020-08-09] MEDS ORDERED: ACETAMINOPHEN 1,000 MG/100 ML VIAL IV STA (22:07)
[2020-08-09] MEDS ORDERED: oxyCODONE HCL IR 5 MG TAB (IMMEDIATE RELEASE) PO PRN (22:10)
[2020-08-09 22:19] LABS: Allen Test POS (Pos)
[2020-08-09] MEDS ORDERED: ALBUTEROL HFA 8 GM INHALER INH STA (22:35)
[2020-08-09] MEDS ORDERED: methylPREDNISolone 20 MG in SYRINGE 0 ML IV STA (23:43)
[2020-08-10] MEDS ORDERED: GLUCOSE 10 TABS/TUBE PO PRN (02:54)
[2020-08-10] MEDS ORDERED: ACETAMINOPHEN 325 MG TAB PO PRN (02:54)
[2020-08-10] MEDS ORDERED: HEPARIN SOD 5,000 UNIT/0.5 ML VIAL SQ SCH ×2 (02:54→14:00)
[2020-08-10] MEDS ORDERED: GLUCAGON FOR INJ 1 MG VIAL SQ PRN (02:54)
[2020-08-10] MEDS ORDERED: INSULIN GLARGINE SOLOSTAR 100 UNITS/ML 3 ML PEN SC STA ×2 (02:54→21:39)
[2020-08-10] MEDS ORDERED: CEFEPIME CONSULT ACTIVE PRN (02:54)
[2020-08-10] MEDS ORDERED: CARBOHYDRATES FOR HYPOGLYCEMIA PO PRN (02:54)
[2020-08-10] MEDS ORDERED: LEVALBUTEROL TARTRATE 15 GM HFA.AER.AD INH PRN (02:54)
[2020-08-10] MEDS ORDERED: GLUCOSE 40% GEL 15 GM TUBE PO PRN (02:54)
[2020-08-10] MEDS ORDERED: BENZONATATE 100 MG CAPSULE PO PRN (02:54)
[2020-08-10] MEDS ORDERED: PROMETHAZINE HCL 12.5 MG in SODIUM CHLORIDE 0.9% 50 ML IV PRN (02:54)
[2020-08-10] MEDS ORDERED: oxyCODONE HCL IR 5 MG TAB (IMMEDIATE RELEASE) PO PRN (02:54)
[2020-08-10] MEDS ORDERED: BENZONATATE 100 MG CAPSULE ONE (03:01)
[2020-08-10] MEDS ORDERED: SODIUM CHLORIDE 0.9% 10ML FLUSH IV SCH (04:00)
[2020-08-10] MEDS ORDERED: REMDESIVIR 200 MG in SODIUM CHLORIDE 0.9% 210 ML IV ONE (04:00)
[2020-08-10] MEDS: INSULIN ASPART 100 UNITS/ML 3 ML PEN SC SCH ×5 (04:19→21:35)
[2020-08-10 05:48] LABS: Estimated Average Glucose 174 mg/dl; Hemoglobin A1C 7.7 % (4.5-5.6)
[2020-08-10] MEDS: ALBUTEROL HFA 8 GM INHALER INH SCH ×4 (07:14→19:31)
--- NOTE | 2020-08-10 07:51 | XRay Report ---
XR chest 1V portable HISTORY: Worsening shortness of breath. COMPARISON: Chest 08/09/2020. FINDINGS: The heart remains mildly enlarged. No pneumothorax. No pleural effusions. Patchy bilateral airspace opacities are stable to slightly improved. IMPRESSION: Stable to slightly improved bilateral airspace opacities consistent with a multifocal pneumonia. ACT 112: Negative or not required by law. Electronically signed by: Jerzy Dodge M.D. 08/10/2020 7:50 AM
[2020-08-10] MEDS: ARIPiprazole 10 MG TAB PO SCH (08:17)
[2020-08-10] MEDS: ASPIRIN 81 MG ECTAB PO SCH ×2 (08:18→21:38)
[2020-08-10] MEDS: VENLAFAXINE HCL XR 150 MG CAPXR PO SCH (08:19)
[2020-08-10] MEDS: FOLIC ACID 1 MG TAB PO SCH (08:20)
[2020-08-10] MEDS: MULTIVITAMIN TAB PO SCH (08:20)
[2020-08-10] MEDS: FAMOTIDINE 20 MG TAB PO SCH ×2 (08:21→21:39)
[2020-08-10] MEDS: DOXYCYCLINE HYCLATE 100 MG CAP PO SCH ×2 (08:21→21:39)
[2020-08-10] MEDS: buPROPion SR 100 MG TABCR PO SCH ×2 (08:22→21:40)
[2020-08-10 08:39] LABS: Basophils # (auto) 0.01 K/uL (0-0.2); Basophils % (auto) 0.1 %; Hematocrit (blood only) 36.6 % (37-47); Hemoglobin 12.1 g/dL (12.0-16.0); Immature Granulocytes # (auto) 0.15 K/uL (0.00-0.02); Immature Granulocytes % (auto) 0.9 %; Lymphocytes % (auto) 5.5 %; Mean Corpuscular Hgb Conc 33.1 g/dL (32-36); Mean Corpuscular Volume 87.8 fL (80-100); Mean Platelet Volume 9.4 fL (7.4-10.4); Monocytes # (auto) 0.51 K/uL (0.11-0.59); Monocytes % (auto) 3.1 %; Neutrophils # (auto) 14.92 K/uL (1.4-6.5); Neutrophils % (auto) 90.4 %; Platelet Count 339 K/uL (130-400); Red Blood Count 4.17 M/uL (4.2-5.4); White Blood Count 16.49 K/uL (4.8-10.8)
[2020-08-10] MEDS ORDERED: dexAMETHasone 6 MG in DEXTROSE 5% 25 ML IV SCH (09:00)
[2020-08-10] MEDS ORDERED: INSULIN GLARGINE SOLOSTAR 100 UNITS/ML 3 ML PEN SC SCH ×2 (09:00→21:00)
[2020-08-10] MEDS ORDERED: GLUCOSAMINE CHONDROITIN PO SCH (09:00)
--- NOTE | 2020-08-10 09:13 | CT Scan Report ---
ABDOMEN AND PELVIS CT WITHOUT CONTRAST CT DOSE: 984.18 mGycm HISTORY: Lower abdominal pain. TECHNIQUE: Multiaxial CT images of the abdomen and pelvis were performed without contrast. A dose lo wering technique was utilized adhering to the principles of ALARA. COMPARISON STUDY: None. FINDINGS: Groundglass airspace opacities within the lung bases consistent with a pneumonia. No pneumo peritoneum. No pneumatosis. No suspicious lytic or blastic osseous lesions. Degenerative changes with in the lower lumbar spine. Hepatic steatosis. There are few small gallstones. Possible 6 mm enhancing lesion within the right hepatic lobe. There is an additional 6 mm enhancing focus within the right h epatic lobe on image 122. These are technically too small to characterize. Vicarious excretion of con trast within the gallbladder from the prior CT. The unenhanced spleen, adrenal glands, and pancreas a re unremarkable. There is also residual contrast within the kidneys from the prior CT examination. Th e kidneys therefore enhance normally. No hydronephrosis. No retroperitoneal lymphadenopathy. Normal c aliber abdominal aorta. The bladder, uterus, bilateral adnexa are within normal limits. No pelvic shaunna e fluid. No bowel wall thickening or obstruction. The visualized appendix is unremarkable. IMPRESSION: 1. Bibasilar airspace opacities consistent with a viral pneumonia. 2. Hepatic steatosis. A few subcentimeter enhancing foci within the right hepatic lobe. These are leah hnically too small to characterize. 3. No definite bowel wall thickening or obstruction. 4. Cholelithiasis. ACT 112: Negative or not required by law. Electronically signed by: Jerzy Dodge M.D. 08/10/2020 9:11 AM
[2020-08-10 09:16] LABS: Albumin Level 2.3 gm/dl (3.4-5.0); BUN Creatinine Ratio 38.4 (10-20); Calcium 8.7 mg/dl (8.5-10.1); Creatinine Clr Calc Pharmacy 59.5 ml/min; Est GFR (African American) 68.8; Est GFR (Non-African American) 59.3; Potassium 3.3 mmol/L (3.5-5.1)
[2020-08-10 09:20] LABS: Albumin Globulin Ratio 0.5 (0.9-2); Bilirubin,Total 0.3 mg/dl (0.2-1); Ferritin 150.7 ng/ml (8-388); Globulin 4.2 gm/dl (2.5-4.0); Total Protein 6.5 gm/dl (6.4-8.2)
[2020-08-10] MEDS ORDERED: POTASSIUM CHLORIDE CRTAB 20 MEQ TABCR PO STA (10:10)
[2020-08-10] MEDS ORDERED: INSULIN GLARGINE SOLOSTAR 100 UNITS/ML 3 ML PEN SC ONE (10:15)
[2020-08-10] MEDS: ATENOLOL 25 MG TABLET PO SCH (10:44)
--- NOTE | 2020-08-10 11:49 | Electrocardiogram Report ---
Test Reason : Blood Pressure : / mmHG Vent. Rate : 091 BPM Atrial Rate : 091 BPM P-R Int : 170 ms QRS Dur : 088 ms QT Int : 354 ms P-R-T Axes : 064 -27 038 degrees QTc Int : 435 ms Normal sinus rhythm Possible Left atrial enlargement Low voltage QRS Possible Anterolateral infarct , age undetermined Abnormal ECG When compared with ECG of 29-OCT-2019 07:14, Borderline criteria for Anterolateral infarct are now Present Confirmed by Robles Bermudez ([id number]) on 08/10/2020 11:49:09 AM Referred By: REFERRED SELF Confirmed By:Robles Bermudez
[2020-08-10] MEDS ORDERED: CEFEPIME 2,000 MG in SYRINGE 0 ML IV ONE (14:45)
--- NOTE | 2020-08-10 15:00 | Hospitalist Progress Note ---
Date of Service August 10, 2020 Assessment & Plan (1) Severe sepsis: 2/2 covid pneumonia and UTI, resuscitated, however, she is not going into respiratory failure. Continue plans as listed below. (2) Pneumonia due to COVID-19 virus: Cont Decadron, continue remdesivir with improvement in creatinine overnight. She is also on cefepime and doxycycline in the setting of severe sepsis resuscitated overnight secondary to pneumonia and UTI. Continue to support with oxygen supplementation, she is currently on high flow nasal cannula and proning. (3) Acute respiratory failure: Requiring high flow via nasal cannula at max capacity and proning. She is a patient who may ultimately end up on the ventilator. Consult pulmonology. 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 (4) UTI (urinary tract infection): She is covered empirically on broad-spectrum antibiotics. De-escalate per clinical improvement and based on culture results. (5) DMII (diabetes mellitus, type 2): Recent A1c reflects good control. She is currently at goal on basal bolus insulin, and is requiring more than normal in the setting of steroid use. (6) Mood disorder: Chronic, stable. Continue Abilify, venlafaxine, and Wellbutrin per home regimen. (7) DVT prophylaxis: Lovenox Full code Disposition-continue PCU monitoring [facility]vel[facility]tic[facility]ated Discharge Date Admission Date: August 09, 2020 Subjective 59-year-old female presented with severe sepsis secondary to COVID-19 pneumonia and urinary tract infection Review of systems was performed but limited as I walked into the room and the patient was oxygenating 80% on almost max high flow settings. She was immediately assessed quickly and proned, with oxygen saturations rising in the prone position. High flow was placed on max settings. After she stabilized, review of systems was performed. She occasionally feels like she is choking and is short of breath. She has coughing, denies pain and was more concerned with getting comfortable in the prone position at this time. Has been was updated by phone of her borderline respiratory status. Of note, as kidney function improved overnight, remdesivir was continued Review of Systems Review of Systems: All systems reviewed & are unremarkable except as noted in Subjective Physical Exam Physical Exam: CONSTITUTIONAL: obese, vitals as above, generally ill- appearing EYES: normal conjunctivae, no scleral icterus ENT: external ear and nose normal, oropharynx clear RESPIRATORY: clear to auscultation bilaterally, no crackles, rales or wheezes, normal respiratory effort CARDIOVASCULAR: regular rate and rhythm, S1 and 2 heard without murmurs, gallops or rubs, no JVD, no peripheral edema CHEST: not inspected as she was in prone position GASTROINTESTINAL: not inspected as she was in the prone position. MUSCULOSKELETAL: strength 5/5 throughout, head is normocephalic and atraumatic SKIN: warm and dry NEUROLOGIC: CN 2-12 grossly intact, normal cognition, normal speech, no gross focal deficits. PSYCHIATRIC: alert cooperative and oriented to person, place and time. Results & Data Results & Data ([facility]) Vital Signs (Past 12 Hours) Vital Signs Temp Pulse Pulse Resp BP Pulse Ox Pulse Ox 08/10/20 12:20 36.8 C 84 26 H 99/63 L 91 08/10/20 11:31 82 24 08/10/20 08:00 36.6 C 78 28 H 99/63 L 92 93 08/10/20 07:14 80 22 93 08/10/20 03:03 36.7 C 82 28 H 112/59 L 90 Laboratory Results Short CBC 08/09/20 08/10/20 Range/Units 17:24 08:16 WBC 22.75 H 16.49 H (4.8-10.8) K/uL Hgb 12.9 12.1 (12.0-16.0) g/dL Hct 38.3 36.6 L (37-47) % Plt Count 474 H 339 (130-400) K/uL BMP 08/09/20 08/10/20 17:24 08:16 Sodium 133 L 136 Potassium 3.5 3.3 L Chloride 100 104 Carbon Dioxide 23 25 BUN 50 H 39 H Creatinine 1.47 H 1.02 Glucose 207 H 203 H Calcium 8.9 8.7 Cardiac Enzymes 08/09/20 08/09/20 Range/Units 17:24 21:39 Troponin I 0.365 H* 0.328 H* (0-0.045) ng/ml Liver Function 08/09/20 08/10/20 Range/Units 17:24 08:16 Total Bilirubin 0.3 0.3 (0.2-1) mg/dl AST 48 H 43 H (15-37) U/L ALT 37 32 (12-78) U/L Alkaline Phosphatase 71 73 (45-117) U/L Albumin 2.5 L 2.3 L (3.4-5.0) gm/dl Urine 08/09/20 Range/Units 17:24 Urine Color Yellow Urine Appearance Cloudy A (Clear) Urine pH 6.0 (4.5-7.5) Ur Specific [place] 1.022 (1.000-1.030) Urine Protein 1+ H (Negative) Urine Glucose (UA) Negative (Negative) Medications Administered Current Inpatient Medications Acetaminophen (Acetaminophen 325 Mg Tab) 325 mg PO Q6H PRN PRN Reason: Mild Pain Stop: 09/09/20 02:53 Albuterol (Albuterol Hfa 8 Gm Inhaler) 2 puffs INH QIDR [facility] Stop: 09/09/20 06:59 Last Admin: 08/10/20 11:31 Dose: 2 puffs Documented by: Aripiprazole ([facility] 10 Mg Tab) [facility] Stop: 09/09/20 08:59 Last Admin: 08/10/20 08:17 Dose: 10 mg Documented by: Aspirin (Aspirin 81 Mg Ectab) 81 mg PO BID [facility] Stop: 09/09/20 08:59 Last Admin: 08/10/20 08:18 Dose: 81 mg Documented by: Atenolol (Atenolol 25 Mg Tablet) 25 mg PO QAM [facility] Stop: 09/09/20 08:59 Last Admin: 08/10/20 10:44 Dose: Not Given Documented by: Atorvastatin Calcium (Atorvastatin 20 Mg Tab) 20 mg PO HS [facility] Stop: 09/09/20 20:59 Benzonatate (Benzonatate 100 Mg Capsule) 100 mg PO TID PRN PRN Reason: Cough Stop: 09/09/20 02:53 Last Admin: 08/10/20 08:45 Dose: 100 mg Documented by: Bupropion HCl (Bupropion Sr 100 Mg Tabcr) 200 mg PO BID [facility] Stop: 09/09/20 08:59 Last Admin: 08/10/20 08:22 Dose: 200 mg Documented by: Dextrose (Dextrose 50% 50 Ml Syringe) 25 - 50 ml IV UD PRN; Protocol PRN Reason: Hypoglycemia Protocol Stop: 09/09/20 02:53 Doxycycline Hyclate (Doxycycline Hyclate 100 Mg Cap) 100 mg PO BID [facility] Stop: 08/17/20 08:59 Last Admin: 08/10/20 08:21 Dose: 100 mg Documented by: Famotidine (Famotidine 20 Mg Tab) 20 mg PO BID [facility] Stop: 09/09/20 08:59 Last Admin: 08/10/20 08:21 Dose: 20 mg Documented by: Folic Acid (Folic Acid 1 Mg Tab) 1 mg PO QAM [facility] Stop: 09/09/20 08:59 Last Admin: 08/10/20 08:20 Dose: 1 mg Documented by: Glucagon (Glucagon For Inj 1 Mg Vial) 1 mg SQ UD PRN; Protocol PRN Reason: Hypoglycemia Protocol Stop: 09/09/20 02:53 Glucose (Glucose 10 Tabs/Tube) 4 - 8 tabs PO UD PRN; Protocol PRN Reason: Hypoglycemia Protocol Stop: 09/09/20 02:53 Glucose (Glucose 40% Gel 15 Gm Tube) 15 - 30 gm PO UD PRN; Protocol PRN Reason: Hypoglycemia Protocol Stop: 09/09/20 02:53 Heparin Sodium (Porcine) (Heparin Sod 5,000 Unit/0.5 Ml Vial) 5,000 units SQ Q8 [facility] Stop: 09/09/20 13:59 Last Admin: 08/10/20 13:18 Dose: 5,000 units Documented by: Dexamethasone 6 mg/ Dextrose 25.6 mls @ 100 mls/hr IV DAILY [facility] Stop: 09/09/20 08:59 Last Admin: 08/10/20 08:39 Dose: 100 mls/hr Documented by: Promethazine HCl 12.5 mg/ (Sodium Chloride) 50.5 mls @ 202 mls/hr IV Q6H PRN PRN Reason: Nausea And Vomiting Stop: 09/09/20 02:53 Remdesivir 100 mg/ Sodium (Chloride) 250 mls @ 250 mls/hr IV Q24H [facility]; Protocol Stop: 08/14/20 12:59 Cefepime HCl 2,000 mg/ Syringe 20 mls @ 5 mls/min IV Q8H [facility] Stop: 08/16/20 00:00 Insulin Aspart (Insulin Aspart 100 Units/Ml 3 Ml Pen) 0 units SC ACHS [facility] Stop: 09/09/20 02:53 Last Admin: 08/10/20 12:37 Dose: 4 units Documented by: Insulin Glargine (Insulin Glargine Solostar 100 Units/Ml 3 Ml Pen) 20 units SC BID [facility] Stop: 09/09/20 20:59 Lamotrigine (Lamotrigine 100 Mg Tab) 150 mg PO HS [facility] Stop: 09/09/20 20:59 Levalbuterol HCl (Levalbuterol Tartrate 15 Gm Hfa.Aer.Ad) 2 puffs INH Q6H PRN PRN Reason: Shortness Of Breath Or Wheezing Stop: 09/09/20 02:53 Miscellaneous (Carbohydrates For Hypoglycemia ) 15 - 30 gm PO UD PRN PRN Reason: Hypoglycemia Protocol Stop: 09/09/20 02:53 Miscellaneous Information (Cefepime Consult Active) 1 ea N/A UD PRN PRN Reason: Consult Stop: 09/09/20 02:53 Multivitamins (Multivitamin Tab) 1 tab PO QAM [facility] Stop: 09/09/20 08:59 Last Admin: 08/10/20 08:20 Dose: 1 tab Documented by: Oxycodone HCl (Oxycodone Hcl Ir 5 Mg Tab (Immediate Release)) 5 - 10 mg PO QID PRN PRN Reason: Pain Stop: 08/23/20 22:09 Oxycodone HCl (Oxycodone Hcl Ir 5 Mg Tab (Immediate Release)) 5 - 10 mg PO QID PRN PRN Reason: Pain Stop: 08/24/20 02:53 Sodium Chloride (Sodium Chloride 0.9% 10ml Flush) 30 ml IV Q24H [facility] Stop: 08/14/20 12:01 Venlafaxine HCl (Venlafaxine Hcl Xr 75 Mg Capxr) 75 mg PO PM [facility] Stop: 09/09/20 20:59 Venlafaxine HCl (Venlafaxine Hcl Xr 150 Mg Capxr) 300 mg PO QAM [facility] Stop: 09/09/20 08:59 Last Admin: 08/10/20 08:19 Dose: 300 mg Documented by:
[2020-08-10] MEDS ORDERED: methylPREDNISolone 20 MG in SYRINGE 0 ML IV STA (21:07)
[2020-08-10] MEDS ORDERED: OLANZapine 10 MG/2.1 ML SDV IM STA (21:34)
[2020-08-10] MEDS: VENLAFAXINE HCL XR 75 MG CAPXR PO SCH (21:38)
[2020-08-10] MEDS: lamoTRIgine 100 MG TAB PO SCH (21:39)
[2020-08-10] MEDS: ATORVASTATIN 20 MG TAB PO SCH (21:39)
[2020-08-10 21:41] LABS: iSTAT Allen Test Pass; iSTAT Arterial Blood Gas HCO3 22 meg/L (19-24); iSTAT Arterial Blood Gas pCO2 41 mmHg (35-46); iSTAT Arterial Blood Gas pH 7.34 (7.35-7.45); iSTAT Arterial Blood Gas pO2 88 mmHg (80-95); iSTAT Carbon Dioxide 24 mmol/L (24-31); iSTAT FiO2 100 %; iSTAT Site R Radial
[2020-08-11] MEDS: CEFEPIME 2,000 MG in SYRINGE 0 ML IV SCH ×3 (00:21→16:55)
[2020-08-11] MEDS ORDERED: OLANZapine 10 MG/2.1 ML SDV IM STA ×2 (02:11→10:58)
[2020-08-11] MEDS ORDERED: ALBUTEROL HFA 8 GM INHALER INH ONE (05:30)
[2020-08-11] MEDS ORDERED: dexAMETHasone 6 MG in DEXTROSE 5% 25 ML IV SCH (05:30)
[2020-08-11] MEDS: ALBUTEROL HFA 8 GM INHALER INH SCH ×4 (07:17→20:27)
--- NOTE | 2020-08-11 07:39 | XRay Report ---
XR chest 1V portable CLINICAL HISTORY: Hypoxia COMPARISON STUDY: 08/10/2020 FINDINGS: The cardiac and mediastinal contours remain stable. There are persistent asymmetric right g reater than left pulmonary airspace opacities consistent with a multifocal pneumonia. The findings re main similar given the differences in technique.[ IMPRESSION: Multifocal airspace opacities consistent with a multifocal pneumonia. The findings remain relatively similar to the preceding study. ACT 112: Negative or not required by law. Electronically signed by: Evans Kim M.D. 08/11/2020 7:38 AM
[2020-08-11 08:22] LABS: Hematocrit (blood only) 34.9 % (37-47); Hemoglobin 11.7 g/dL (12.0-16.0); Mean Corpuscular Hemoglobin 29.6 pg (25-34); Mean Corpuscular Hgb Conc 33.5 g/dL (32-36); Mean Corpuscular Volume 88.4 fL (80-100); Mean Platelet Volume 9.6 fL (7.4-10.4); Nucleated RBC # (auto) 0.02 K/uL (0-0); Nucleated RBC % (auto) 0.1 %; Platelet Count 360 K/uL (130-400); RDW Coefficient of Variation 14.3 % (11.5-14.5); RDW Standard Deviation 46.6 fL (36.4-46.3); Red Blood Count 3.95 M/uL (4.2-5.4); White Blood Count 16.44 K/uL (4.8-10.8)
[2020-08-11] MEDS: INSULIN ASPART 100 UNITS/ML 3 ML PEN SC SCH ×4 (08:38→20:20)
[2020-08-11] MEDS: buPROPion SR 100 MG TABCR PO SCH ×2 (08:43→21:36)
[2020-08-11] MEDS: DOXYCYCLINE HYCLATE 100 MG CAP PO SCH ×2 (08:43→21:36)
[2020-08-11] MEDS: FOLIC ACID 1 MG TAB PO SCH (08:44)
[2020-08-11] MEDS: ATENOLOL 25 MG TABLET PO SCH (08:44)
[2020-08-11] MEDS: MULTIVITAMIN TAB PO SCH (08:44)
[2020-08-11] MEDS: FAMOTIDINE 20 MG TAB PO SCH ×2 (08:44→21:36)
[2020-08-11] MEDS: ARIPiprazole 10 MG TAB PO SCH (08:45)
[2020-08-11] MEDS: ASPIRIN 81 MG ECTAB PO SCH ×2 (08:45→21:36)
[2020-08-11] MEDS: ENOXAPARIN INJ 40 MG/0.4 ML SYR SQ SCH (08:46)
[2020-08-11] MEDS: VENLAFAXINE HCL XR 150 MG CAPXR PO SCH (08:46)
[2020-08-11] MEDS: INSULIN GLARGINE SOLOSTAR 100 UNITS/ML 3 ML PEN SC SCH ×2 (08:47→20:54)
[2020-08-11 08:48] LABS: BUN Creatinine Ratio 38.9 (10-20); C Reactive Protein 13.5 mg/dl (0-0.29); Creatinine Clr Calc Pharmacy 71.3 ml/min; Est GFR (African American) 85.7; Potassium 3.9 mmol/L (3.5-5.1)
[2020-08-11] MEDS: REMDESIVIR 100 MG in SODIUM CHLORIDE 0.9% 230 ML IV SCH (11:27)
[2020-08-11] MEDS: SODIUM CHLORIDE 0.9% 10ML FLUSH IV SCH (11:31)
--- NOTE | 2020-08-11 15:24 | Hospitalist Progress Note ---
Date of Service August 11, 2020 Assessment & Plan (1) Severe sepsis: Secondary to covid pneumonia and is complicated by UTI, Resuscitated and remains hemodynamically stable Clinically stable and getting better gradually (2) Pneumonia due to COVID-19 virus: Cont Decadron, continue remdesivir with improvement in creatinine overnight. She is also on cefepime and doxycycline for possible superinfection with bacteria Remains stable but requiring high flow oxygen to maintain saturation (3) Acute respiratory failure: Requiring high flow via nasal cannula at max capacity and proning. She is a patient who may ultimately end up on the ventilator. Has been requiring high flow oxygen and doing proning and BiPAP at nighttime Will ask for pulmonary evaluation as the patient may need intubation down the line (4) UTI (urinary tract infection): She is covered empirically on broad-spectrum antibiotics. De-escalate per clinical improvement and based on culture results. (5) DMII (diabetes mellitus, type 2): Recent A1c reflects good control. She is currently at goal on basal bolus insulin, and is requiring more than normal in the setting of steroid use. (6) Mood disorder: Chronic, stable. Continue Abilify, venlafaxine, and Wellbutrin per home regimen. Has been getting Zyprexa as needed (7) DVT prophylaxis: Lovenox Full code Disposition-continue PCU monitoring Admission and Anticipated Discharge Date Admission Date: August 09, 2020 Subjective He is requiring patient was seen and examined in Covid unit He was admitted with severe sepsis secondary to Covid pneumonia and complicated by UTI She still is requiring high flow oxygen to maintain saturation Feels a little better today Review of Systems Review of Systems: All systems reviewed and are unremarkable except as noted below Constitutional: + malaise Respiratory: + cough, + dyspnea and + dyspnea on exertion Neurologic: + generalized weakness Physical Exam Physical Exam: Lying in bed with moderate shortness of breath at rest Constitutional: well developed, well nourished, + ill appearing and + obese Eyes: PERRL, conjunctivae normal, anicteric sclerae ENMT: external ear and nose normal, oropharynx normal Neck: trachea midline, no thyromegaly Respiratory: + respiratory distress Auscultation: + diminished lung sounds and + crackles (Bibasilar crackles) Cardiovascular: Rate/Rhythm: regular rate and regular rhythm Heart Sounds: no murmur Extremities: + edema (Trace to 1+ edema bilaterally) Gastrointestinal (Abdomen): Inspection/Auscultation: normal bowel sounds; abdomen not distended Percussion/Palpation: abdomen soft; abdomen nontender Musculoskeletal: No acute arthritis in any joint Neurologic: Alert, awake and oriented.. Generally weak and lethargic. No focal neuro deficit Psychiatric: A+Ox3, euthymic affect Lymphatic: no cervical or axillary lymphadenopathy Results & Data Results & Data ([facility]) Vital Signs (Past 12 Hours) Vital Signs Temp Pulse Resp BP Pulse Ox Pulse Ox 08/11/20 11:43 98 08/11/20 11:32 37.1 C 81 17 123/59 L 97 08/11/20 11:15 80 L 08/11/20 11:10 83 24 92 08/11/20 08:00 89 L 08/11/20 07:27 37.3 C 95 H 23 112/50 L 88 L 08/11/20 07:17 92 H 22 91 08/11/20 05:41 89 22 89 L 08/11/20 04:08 37.2 C 86 32 H 127/59 L 91 Laboratory Results Short CBC 08/11/20 Range/Units 07:13 WBC 16.44 H (4.8-10.8) K/uL Hgb 11.7 L (12.0-16.0) g/dL Hct 34.9 L (37-47) % Plt Count 360 (130-400) K/uL BMP 08/11/20 07:13 Sodium 141 Potassium 3.9 D Chloride 109 H Carbon Dioxide 26 BUN 33 H Creatinine 0.85 Glucose 167 H Calcium 9.0 Medications Administered Current Inpatient Medications Acetaminophen (Acetaminophen 325 Mg Tab) 325 mg PO Q6H PRN PRN Reason: Mild Pain Stop: 09/09/20 02:53 Albuterol (Albuterol Hfa 8 Gm Inhaler) 2 puffs INH QIDR [facility] Stop: 09/09/20 06:59 Last Admin: 08/11/20 15:18 Dose: 2 puffs Documented by: Aripiprazole (Aripiprazole 10 Mg Tab) 10 mg PO QAM [facility] Stop: 09/09/20 08:59 Last Admin: 08/11/20 08:45 Dose: 10 mg Documented by: Aspirin (Aspirin 81 Mg Ectab) 81 mg PO BID [facility] Stop: 09/09/20 08:59 Last Admin: 08/11/20 08:45 Dose: 81 mg Documented by: Atenolol (Atenolol 25 Mg Tablet) 25 mg PO QAM [facility] Stop: 09/09/20 08:59 Last Admin: 08/11/20 08:44 Dose: 25 mg Documented by: Atorvastatin Calcium (Atorvastatin 20 Mg Tab) 20 mg PO HS [facility] Stop: 09/09/20 20:59 Last Admin: 08/10/20 21:39 Dose: Not Given Documented by: Benzonatate (Benzonatate 100 Mg Capsule) 100 mg PO TID PRN PRN Reason: Cough Stop: 09/09/20 02:53 Last Admin: 08/10/20 08:45 Dose: 100 mg Documented by: Bupropion HCl (Bupropion Sr 100 Mg Tabcr) 200 mg PO BID [facility] Stop: 09/09/20 08:59 Last Admin: 08/11/20 08:43 Dose: 200 mg Documented by: Dextrose (Dextrose 50% 50 Ml Syringe) 25 - 50 ml IV UD PRN; Protocol PRN Reason: Hypoglycemia Protocol Stop: 09/09/20 02:53 Doxycycline Hyclate (Doxycycline Hyclate 100 Mg Cap) 100 mg PO BID [facility] Stop: 08/17/20 08:59 Last Admin: 08/11/20 08:43 Dose: 100 mg Documented by: Enoxaparin Sodium (Enoxaparin Inj 40 Mg/0.4 Ml Syr) 40 mg SQ QAM [facility] Stop: 09/10/20 08:59 Last Admin: 08/11/20 08:46 Dose: 40 mg Documented by: Famotidine (Famotidine 20 Mg Tab) 20 mg PO BID [facility] Stop: 09/09/20 08:59 Last Admin: 08/11/20 08:44 Dose: 20 mg Documented by: Folic Acid (Folic Acid 1 Mg Tab) 1 mg PO QAM [facility] Stop: 09/09/20 08:59 Last Admin: 08/11/20 08:44 Dose: 1 mg Documented by: Glucagon (Glucagon For Inj 1 Mg Vial) 1 mg SQ UD PRN; Protocol PRN Reason: Hypoglycemia Protocol Stop: 09/09/20 02:53 Glucose (Glucose 10 Tabs/Tube) 4 - 8 tabs PO UD PRN; Protocol PRN Reason: Hypoglycemia Protocol Stop: 09/09/20 02:53 Glucose (Glucose 40% Gel 15 Gm Tube) 15 - 30 gm PO UD PRN; Protocol PRN Reason: Hypoglycemia Protocol Stop: 09/09/20 02:53 Guaifenesin/Codeine Phosphate (Guaifenesin/Codeine 200mg/20mg 10ml Udc) 10 ml PO Q6H PRN PRN Reason: Cough Stop: 09/09/20 17:57 Last Admin: 08/11/20 10:41 Dose: 10 ml Documented by: Remdesivir 100 mg/ Sodium (Chloride) 250 mls @ 250 mls/hr IV Q24H [facility]; Protocol Stop: 08/14/20 12:59 Last Infusion: 08/11/20 13:31 Dose: Infused Documented by: Cefepime HCl 2,000 mg/ Syringe 20 mls @ 5 mls/min IV Q8H [facility] Stop: 08/16/20 00:00 Last Admin: 08/11/20 08:41 Dose: 5 mls/min Documented by: Dexamethasone 6 mg/ Dextrose 25.6 mls @ 100 mls/hr IV DAILY [facility] Stop: 09/10/20 05:29 Last Infusion: 08/11/20 07:30 Dose: Infused Documented by: Insulin Aspart (Insulin Aspart 100 Units/Ml 3 Ml Pen) 0 units SC ACHS [facility] Stop: 09/09/20 02:53 Last Admin: 08/11/20 12:06 Dose: Not Given Documented by: Insulin Glargine (Insulin Glargine Solostar 100 Units/Ml 3 Ml Pen) 10 units SC BID [facility] Stop: 09/10/20 08:59 Last Admin: 08/11/20 08:47 Dose: 10 units Documented by: Lamotrigine (Lamotrigine 100 Mg Tab) 150 mg PO HS [facility] Stop: 09/09/20 20:59 Last Admin: 08/10/20 21:39 Dose: Not Given Documented by: Levalbuterol HCl (Levalbuterol Tartrate 15 Gm Hfa.Aer.Ad) 2 puffs INH Q6H PRN PRN Reason: Shortness Of Breath Or Wheezing Stop: 09/09/20 02:53 Miscellaneous (Carbohydrates For Hypoglycemia ) 15 - 30 gm PO UD PRN PRN Reason: Hypoglycemia Protocol Stop: 09/09/20 02:53 Miscellaneous Information (Cefepime Consult Active) 1 ea N/A UD PRN PRN Reason: Consult Stop: 09/09/20 02:53 Multivitamins (Multivitamin Tab) 1 tab PO QAM [facility] Stop: 09/09/20 08:59 Last Admin: 08/11/20 08:44 Dose: 1 tab Documented by: Sodium Chloride (Sodium Chloride 0.9% 10ml Flush) 30 ml IV Q24H [facility] Stop: 08/14/20 12:01 Last Admin: 08/11/20 11:31 Dose: 30 ml Documented by: Venlafaxine HCl (Venlafaxine Hcl Xr 75 Mg Capxr) 75 mg PO PM [facility] Stop: 09/09/20 20:59 Last Admin: 08/10/20 21:38 Dose: Not Given Documented by: Venlafaxine HCl (Venlafaxine Hcl Xr 150 Mg Capxr) 300 mg PO QAM [facility] Stop: 09/09/20 08:59 Last Admin: 08/11/20 08:46 Dose: 300 mg Documented by:
--- NOTE | 2020-08-11 20:23 | Critical Care Consultation ---
Date of Consultation August 11, 2020 Assessment & Plan (1) Acute hypoxemic respiratory failure due to COVID-19: Encourage self proning -Agree with cefepime and doxycycline for con commitment bacterial pneumonias -Continue remdesivir -Continue Decadron -Added vitamin C and zinc -High flow oxygen during the day BiPAP at night as needed -Critical care will follow from periphery, please call if any acute concerns. (2) DMII (diabetes mellitus, type 2): History of Present Illness Reason for Consultation: Acute hypoxic respiratory failure Requesting Physician: Sharonda Summers Attending Physician: Dave Mcdonough MD History of Present Illness Patient is a 59-year-old female who presented with increasing shortness of breath after testing positive for COVID-19. Additional past medical history includes type 2 diabetes and a non-ST elevation [place]. She feels comfortable despite saturating in the 80s, she finds it difficult to lay fully over onto her stomach however she has been laying on her sides in the left and right lateral decubitus position. We discussed the risks and benefits of complete pronation and possible need for intubation. Particularly we talked about the need to increase safety margin should she have worsening oxygenation which would increase the risk of a intubation. At this time she does not desire intubation and will attempt to continue self proning. Allergies Allergy/AdvReac Type Severity Reaction Status Date / Time No Known Allergies Allergy Verified 08/09/20 18:45 Home Medications Medication Instructions Recorded Confirmed Type Fish Oil 1 cap PO QAM 10/30/19 08/09/20 History aripiprazole 10 mg PO QAM 10/30/19 08/09/20 History atenolol 25 mg PO QAM 10/30/19 08/09/20 History bupropion HCl [Wellbutrin SR] 200 mg PO BID 10/30/19 08/09/20 History calcium carbonate [Calcium 600] 600 mg PO BID 10/30/19 08/09/20 History famotidine [Pepcid] 20 mg PO BID 10/30/19 08/09/20 History glucosamine-chondroitin 1 tab PO QAM 10/30/19 08/09/20 History lamotrigine [Lamictal] 150 mg PO HS 10/30/19 08/09/20 History lisinopril 5 mg PO QAM 10/30/19 08/09/20 History metformin 1,000 mg PO BID 10/30/19 08/09/20 History venlafaxine 75 mg PO PM 10/30/19 08/09/20 History venlafaxine 300 mg PO QAM 10/30/19 08/09/20 History aspirin 81 mg PO BID #60 tab 11/03/19 08/09/20 Rx albuterol sulfate 4 puff INHALATION QID 08/09/20 08/09/20 History atorvastatin 20 mg PO HS 08/09/20 08/09/20 History folic acid 1 mg PO QAM 08/09/20 08/09/20 History multivitamin 1 tab PO QAM 08/09/20 08/09/20 History ondansetron HCl 4 mg PO Q8H PRN 08/09/20 08/09/20 History prednisone 20 mg PO DIRECTED 08/09/20 08/09/20 History sitagliptin [Januvia] 100 mg PO QAM 08/09/20 08/09/20 History Patient History Medical History (Updated 08/11/20 @ 20:19 by Baljinder Gordon DO) Anxiety Cataract Chronic back pain Degenerative disc disease L5-S1 Depression Diabetes mellitus, type 2 NIDDM GERD (gastroesophageal reflux disease) Hyperlipidemia Hypertension Migraine Sleep apnea CPAP Surgical History History of adenoidectomy History of section History of colonoscopy History of endoscopic sinus surgery History of esophagogastroduodenoscopy (EGD) History of nasal septoplasty History of tonsillectomy History of tooth extraction wisdom Social History Smoking Status: Never smoker Second Hand Exposure: No; Hx Alcohol Use: Yes Alcohol type: wine Hx Substance Use: No Preferred Language: Icelandic Communication Ability: Effective Data Keyer Required: No Beliefs That Will Affect Care: None Current Living Situation: Spouse Feels Safe at Home: Yes Assistive Devices: BiPap and Glasses Review of Systems Review of Systems: No chest pain, positive shortness of breath Physical Exam Physical Exam: General: Alert. nontoxic. Skin: Warm, dry, Head: Atraumatic Ears, nose, mouth and throat: airway patent Cardiovascular: Normal peripheral perfusion Respiratory: no respiratory distress, speaking in full sentences Gastrointestinal: Non distended Musculoskeletal: No deformity Results & Data Results & Data ([facility]) Vital Signs (Past 12 Hours) Vital Signs Temp Pulse Pulse Resp BP Pulse Ox Pulse Ox 08/11/20 20:11 37.6 C H 92 H 26 H 129/55 L 94 08/11/20 17:57 89 28 H 91 08/11/20 16:30 36.2 C L 95 H 18 128/62 91 08/11/20 15:20 85 24 88 L 08/11/20 11:43 98 08/11/20 11:32 37.1 C 81 17 123/59 L 97 08/11/20 11:15 80 L 08/11/20 11:10 83 24 92 Coding Level of Care Code 76137 Inpt Consult Level 3 Diagnoses Acute hypoxemic respiratory failure due to COVID-19 U07.1; J96.01 DMII (diabetes mellitus, type 2) E11.9
[2020-08-11] MEDS ORDERED: RAPID SEQUENCE INDUCTION BAG ONE (21:13)
[2020-08-11] MEDS ORDERED: STAT IV Infusion **Titration per Protocol STA (21:23)
[2020-08-11] MEDS ORDERED: MIDAZOLAM BOLUS FROM BAG IV PRN (21:23)
[2020-08-11] MEDS ORDERED: VECURONIUM BROMIDE 10 MG VIAL IV ONE (21:34)
[2020-08-11] MEDS ORDERED: SUCCINYLCHOLINE CHLORIDE 20 MG/ML 10 ML VIAL IV ONE (21:34)
[2020-08-11] MEDS: ATORVASTATIN 20 MG TAB PO SCH (21:36)
[2020-08-11] MEDS ORDERED: ETOMIDATE 2 MG/ML 20 ML VIAL IV ONE (21:36)
[2020-08-11] MEDS: lamoTRIgine 100 MG TAB PO SCH (21:36)
[2020-08-11] MEDS: VENLAFAXINE HCL XR 75 MG CAPXR PO SCH (21:36)
[2020-08-11] MEDS ORDERED: fentaNYL citrate 100 MCG/2 ML VIAL ONE (21:37)
[2020-08-11] MEDS ORDERED: MIDAZOLAM HCL 5 MG/ML 1 ML VIAL ONE (21:38)
--- NOTE | 2020-08-11 21:48 | Procedure Note ---
Procedure Note Date of Service August 11, 2020 Note ARTERIAL LINE PROCEDURE NOTE: Procedure: Arterial Line Placement Attending: Dr. Baljinder Gordon Provider: DONNA Miller Indication: Continuous blood pressure monitoring, frequent ABGs Anesthesia: None Line placed emergently following emergent intubation in the setting of ARDS requiring proning. Need for continuous blood pressure monitoring and frequent ABGs. A time-out was completed verifying correct patient, procedure, site, positioning, and implant(s) or special equipment if applicable. Allens test was performed to ensure adequate perfusion. Patients right wrist was prepped and draped in the usual sterile fashion. Ultrasound guidance was used to aid needle placement. A 20g Arrow arterial line was introduced into the right radial artery. Catheter was threaded, and the needle was removed with appropriate blood return. Good waveform was observed. The patient tolerated the procedure well. Confirmation of placement with ultrasound. Blood Loss: Minimal Complications: None Procedural Ultrasound Guidance: Procedure Date: 08/12/2020 Indication: Arterial line insertion Attending: Dr. Baljinder Gordon Provider: DONNA Miller Artery Identified: YES Line confirmed in Artery with ultrasound: Yes Complications: NONE Patient tolerated procedure: WELL Coding CPT Codes Tubes, Drains, and Vasc Access - Tubes, Drains, and Vasc Access: [id number] Place C atheter In Artery ([id number]) Tubes, Drains, and Vasc Access - Tubes, Drains, and Vasc Access: [id number] Ultrasound Guidance For Vascular ([id number]) [facility] [place]Charg[place]) Tubes, Drains, and Vasc Access Procedure 3: Tubes, Drains, and Vasc Access: [id number] Place Catheter In Artery Procedure 4: Tubes, Drains, and Vasc Access: [id number] Ultrasound Guidance For Vascular
--- NOTE | 2020-08-11 21:52 | Procedure Note ---
Procedure Note Date of Service August 11, 2020 Procedure Date: Noted above Procedure: Endotracheal intubation Pre-procedure Diagnosis: COVID-19 related acute hypoxic respiratory failure Post-procedure Diagnosis: same as above Prior to Procedure: Informed Consent: emergent Attending Staff: Kulwant Gordon DO The identity of the patient was confirmed and a bedside time out was performed. Description of Procedure: Patient was evaluated and required intubation for impending respiratory failure. The patient was prepared in the usual fashion. A MAC 3 video laryngoscope was used. A 8.0 mm inner diameter endotrachial tube was placed endotracheally to 24 cm at the teeth. A grade 1 view was obtained. The endotracheal tube was noted to pass through the vocal cords. Chest rise was bilateral. Bilateral breath sounds were heard without air sounds in the abdomen. Mist was noted in the endotracheal tube. End-tidal CO2 measurement was positive. Chest x-ray shows proper endotracheal tube placement. Complications: Patient was oxygenating at 76% at the time of medication she dropped down to what was read as 20% but slowly improved with Peep valve and aggressive [id number] ventilation after the endotracheal tube was placed and under 30 seconds Findings: Not applicable Specimens: Not applicable Estimated blood loss: Zero Coding
--- NOTE | 2020-08-11 21:53 | Procedure Note ---
Procedure Note Date of Service August 11, 2020 Procedure date: Noted above Procedure: Central venous access Pre-procedure indication: Need for vasoactive medication administration Post-procedure Diagnosis: same as above Prior to Procedure: Informed Consent: Emergent consent implied Attending Staff: Kulwant Grodon DO Resident/APC: Not applicable Skin Prep: Chlorhexidine Anesthesia: 4 mL 1% lidocaine without epinephrine The identity of the patient was confirmed and a bedside time out was performed. Description of Procedure: After sterile prep and sterile drape utilizing standard sterile technique the superficial skin of the left subclavian area was anesthetized. The target vessel was identified and entered with an 18-gauge n eedle. Dark venous blood return was noted. A guidewire was inserted through the needle and into the vessel. The needle was withdrawn and a skin sushant was made. A tissue dilator was advanced via Seldinger technique and removed. A triple lumen catheter was inserted via Seldinger technique and the guidewire removed. All ports lillian and flushed easily. A Biopatch was placed, and the catheter was secured via silk suture. A sterile dressing was then applied. Complications: None Estimated blood loss: Trace Patient tolerated the procedure well. Coding CPT Codes Tubes, Drains, and Vasc Access - Tubes, Drains, and Vasc Access: [id number] Insertion Of Non-tunneled Catheter Age 3 Yrs> ([id number]) [facility] [place] Codes (Charges) Tubes, Drains, and Vasc Access Procedure 1: Tubes, Drains, and Vasc Access: [id number] Insertion Of Non-tunneled Catheter Age 3 Yrs>
--- NOTE | 2020-08-11 21:54 | Communication Note ---
Date of Service: August 11, 2020 Patient acutely decompensated saturations in the 70s despite BiPAP and on 100% FiO2. Requiring rapid sequence intubation. This was completed and under 30 seconds over the patient's oxygen saturations were at maximum in the mid 70s they desaturated down into the 50s she slowly recovered with aggressive PEEP and [id number] ventilation. At this point there seems to be no untoward effect. Coding Level of Care Code Critical Care 1st 30-74 mins Time Spent (min) 30
[2020-08-11] MEDS: MIDAZOLAM HCL 125 MG/250 ML BAG IV SCH (22:03)
[2020-08-11] MEDS: fentaNYL DRIP 1,250 MCG/250 ML BAG IV SCH (22:04)
[2020-08-11] MEDS: ACETAMINOPHEN 1,000 MG/100 ML VIAL IV PRN (22:04)
[2020-08-11] MEDS: CISATRACURIUM BESYLATE 40 MG in 0.9 % SODIUM CHLORIDE 80 ML IV SCH (22:04)
[2020-08-11 22:37] LABS: iSTAT Arterial Blood Gas HCO3 26 meg/L (19-24); iSTAT Arterial Blood Gas pCO2 61 mmHg (35-46); iSTAT Arterial Blood Gas pH 7.23 (7.35-7.45); iSTAT Arterial Blood Gas pO2 103 mmHg (80-95); iSTAT Carbon Dioxide 27 mmol/L (24-31); iSTAT FiO2 80 %; iSTAT Site Art Line
[2020-08-11 23:42] LABS: iSTAT Arterial Blood Gas HCO3 25 meg/L (19-24); iSTAT Arterial Blood Gas pCO2 58 mmHg (35-46); iSTAT Arterial Blood Gas pH 7.24 (7.35-7.45); iSTAT Arterial Blood Gas pO2 75 mmHg (80-95); iSTAT Carbon Dioxide 26 mmol/L (24-31); iSTAT FiO2 60 %; iSTAT Site Art Line
[2020-08-12] MEDS: CISATRACURIUM BESYLATE 40 MG in 0.9 % SODIUM CHLORIDE 80 ML IV SCH ×9 (03:20→21:15)
[2020-08-12 04:45] LABS: iSTAT Arterial Blood Gas HCO3 25 meg/L (19-24); iSTAT Arterial Blood Gas pCO2 59 mmHg (35-46); iSTAT Arterial Blood Gas pH 7.24 (7.35-7.45); iSTAT Arterial Blood Gas pO2 79 mmHg (80-95); iSTAT Carbon Dioxide 27 mmol/L (24-31); iSTAT FiO2 70 %; iSTAT Site Art Line
[2020-08-12] MEDS ORDERED: NOREPINEPHRINE/D5W 8 MG/508 ML IV ONE (04:54)
[2020-08-12] MEDS ORDERED: STAT IV Infusion **Titration per Protocol STA (04:55)
[2020-08-12] MEDS ORDERED: NOREPINEPHRINE/D5W 8 MG/508 ML BAG IV SCH (05:00)
[2020-08-12 06:22] LABS: Basophils # (auto) 0.07 K/uL (0-0.2); Basophils % (auto) 0.4 %; Eosinophils # (auto) 0.01 K/uL (0-0.5); Eosinophils % (auto) 0.1 %; Hematocrit (blood only) 37.4 % (37-47); Hemoglobin 11.8 g/dL (12.0-16.0); Immature Granulocytes # (auto) 0.84 K/uL (0.00-0.02); Immature Granulocytes % (auto) 4.2 %; Lymphocytes # (auto) 1.08 K/uL (1.2-3.4); Lymphocytes % (auto) 5.4 %; Mean Corpuscular Hgb Conc 31.6 g/dL (32-36); Mean Corpuscular Volume 91.9 fL (80-100); Mean Platelet Volume 9.8 fL (7.4-10.4); Monocytes # (auto) 0.38 K/uL (0.11-0.59); Monocytes % (auto) 1.9 %; Neutrophils # (auto) 17.47 K/uL (1.4-6.5); Nucleated RBC # (auto) 0.06 K/uL (0-0); Nucleated RBC % (auto) 0.3 %; Platelet Count 236 K/uL (130-400); RDW Standard Deviation 50.7 fL (36.4-46.3); Red Blood Count 4.07 M/uL (4.2-5.4); White Blood Count 19.85 K/uL (4.8-10.8)
--- NOTE | 2020-08-12 06:57 | XRay Report ---
XR chest 1V portable CLINICAL HISTORY: post intubation COMPARISON STUDY: Chest CT August 09, 2020. Chest radiograph August 10, 2020. FINDINGS: The tip of the endotracheal tube is 1.2 cm above the wolf. Tip of left subclavian central line projects over the distal left brachiocephalic vein. There is no pneumothorax. Extensive right l suhail airspace opacity has progressed. Left lung airspace opacities with left basilar consolidation has progressed. IMPRESSION: 1. Tip of endotracheal tube 1.2 cm above the wolf. 2. No pneumothorax following placement of a left subclavian central line. Catheter tip projects over the distal left brachiocephalic vein. 3. Increase in extensive bilateral airspace opacities consistent with an infectious process. ACT 112: Negative or not required by law. Electronically signed by: Bryan Morrison M.D. 08/12/2020 6:56 AM
[2020-08-12 06:58] LABS: BUN Creatinine Ratio 36.3 (10-20); Calcium 8.6 mg/dl (8.5-10.1); Creatinine Clr Calc Pharmacy 65.5 ml/min; Est GFR (African American) 78.9; Est GFR (Non-African American) 68.1; Magnesium 2.4 mg/dl (1.8-2.4); Potassium 4.1 mmol/L (3.5-5.1)
[2020-08-12 07:14] LABS: Albumin Globulin Ratio 0.5 (0.9-2); Bilirubin,Total 0.4 mg/dl (0.2-1); Globulin 4.1 gm/dl (2.5-4.0); Phosphorus 4.1 mg/dl (2.5-4.9); Total Protein 6.1 gm/dl (6.4-8.2)
[2020-08-12] MEDS ORDERED: Nursing to Pharmacy Communication SCH (07:15)
[2020-08-12] MEDS: fentaNYL DRIP 1,250 MCG/250 ML BAG IV SCH ×2 (08:05→19:51)
[2020-08-12] MEDS: ATENOLOL 25 MG TABLET PO SCH (08:10)
[2020-08-12] MEDS: ASPIRIN 81 MG ECTAB PO SCH (08:12)
[2020-08-12] MEDS: VENLAFAXINE HCL XR 150 MG CAPXR PO SCH (08:12)
[2020-08-12] MEDS ORDERED: INSULIN ASPART 100 UNITS/ML 3 ML PEN SC ONE (08:15)
[2020-08-12] MEDS: CEFEPIME 2,000 MG in SYRINGE 0 ML IV SCH ×4 (08:19→23:52)
[2020-08-12] MEDS: DEXAMETHASONE SOD PHOSPHATE 6 MG in SYRINGE 0 ML IV SCH (08:20)
[2020-08-12] MEDS: ZINC SULFATE 220 MG CAPSULE PO SCH (08:24)
[2020-08-12] MEDS: ASCORBIC ACID 500 MG TAB PO SCH (08:24)
[2020-08-12] MEDS: THIAMINE HCL 100 MG TAB PO SCH (08:24)
[2020-08-12] MEDS: MULTIVITAMIN TAB PO SCH (08:25)
[2020-08-12] MEDS: ENOXAPARIN INJ 40 MG/0.4 ML SYR SQ SCH (08:25)
[2020-08-12] MEDS: buPROPion SR 100 MG TABCR PO SCH (08:26)
[2020-08-12] MEDS: INSULIN GLARGINE SOLOSTAR 100 UNITS/ML 3 ML PEN SC SCH ×2 (08:27→23:47)
[2020-08-12] MEDS: DOXYCYCLINE HYCLATE 100 MG CAP PO SCH (08:27)
[2020-08-12] MEDS: FAMOTIDINE 20 MG TAB PO SCH ×2 (08:27→19:26)
[2020-08-12] MEDS: ARIPiprazole 10 MG TAB PO SCH (08:33)
[2020-08-12] MEDS: FOLIC ACID 1 MG TAB PO SCH (08:34)
--- NOTE | 2020-08-12 08:50 | XRay Report ---
XR chest 1V portable CLINICAL HISTORY: resp failure COMPARISON STUDY: Chest radiograph August 31, 2020 at 9:29 PM. FINDINGS: Tip of the tracheal tube is 3.2 cm above the wolf. Tip of nasogastric tube is below the l ower aspect of this image but at least within the distal esophagus. Tip of left subclavian central li ne projects over the left brachiocephalic vein. There is no pneumothorax. No definite pleural effusio n is noted. Extensive bilateral airspace opacities have progressed. IMPRESSION: 1. Tip of endotracheal tube 3.2 cm above the wolf. 2. Progression of extensive bilateral airspace opacities which favor an infectious process. ACT 112: Negative or not required by law. Electronically signed by: Bryan Morrison M.D. 08/12/2020 8:48 AM
--- NOTE | 2020-08-12 09:22 | Critical Care Progress Note ---
Date of Service August 12, 2020 Assessment & Plan (1) Acute hypoxemic respiratory failure due to COVID-19: Reason Critically Ill: 59-year-old female with acute hypoxic respiratory failure secondary to Covid pneumonia and obesity BMI 39.4 PLAN: Neuro: Neuromuscular blockade -Holding steroids while on neuromuscular blockade, discontinue doxycycline as I do not feel that this is client service representative of an atypical superimposed pneumonia and at risk for interactions with neuromuscular junction given neuromuscular blockade Mood disorder -Effexor adjustment Resp: Acute hypoxic respiratory failure secondary to COVID-19 -ARDSnet high PEEP low FiO2 with pronation therapy -Poor compliance in supine position she is in the 20s to 30s for compliance -No additional fluid at this time consider diuresis -Hypoxic during induction of intubation, concern for possible anoxic injury -Continue remdesivir CV: Hypotension: Resolved Fluids/Renal: Electrolyte protocol ID: Cefepime for superimposed bacterial infection -Day 3 of 7 GI/Nutrition: Start trickle tube feeds Heme: Mild anemia DVT prophylaxis: Lovenox 40 twice daily for Covid associated DVT prophylaxis Endocrine: ICU hyperglycemia protocol Vascular access: Left subclavian placed 08/11 right arterial line placed 08/11 Code Status: Full Disposition: ICU Patient was discussed in multidisciplinary rounds. I updated the patient's we discussed risks and benefits of resuscitation in event of cardiac arrest he is initially feeling that she would not want heroic measures undertaken in event of cardiac arrest, he also feels that she would likely not want tracheostomy for any form of long-term mechanical ventilation. He will discuss this with his son and give us a call back. (2) Mood disorder: (3) DMII (diabetes mellitus, type 2): Admission and Anticipated Discharge Date Admission Date: August 09, 2020 Subjective No overnight events after intubation and pronation Review of Systems Review of Systems: Unobtainable due to endotracheal tube Physical Exam Physical Exam: General: GCS 3 TP, in prone position Skin: Warm, dry, Head: Atraumatic Ears, nose, mouth and throat: airway obscured by endotracheal tube Cardiovascular: Normal peripheral perfusion Respiratory: Ventilator settings reviewed Gastrointestinal: Non distended Musculoskeletal: No deformity Results & Data Results & Data ([facility]) Vital Signs (Past 12 Hours) Vital Signs Temp Pulse Resp BP Pulse Ox 08/12/20 08:25 89 37 H 93 08/12/20 07:15 37.0 C 90 97 08/12/20 07:00 37.0 C 90 97 08/12/20 06:56 37.0 C 90 96/34 L 96 08/12/20 06:50 37.0 C 90 98 08/12/20 06:26 36.5 C 88 111/54 L 98 08/12/20 05:56 36.7 C 89 115/47 L 96 08/12/20 05:30 36.7 C 90 94 08/12/20 05:26 36.9 C 89 107/45 L 94 08/12/20 05:04 36.9 C 90 110/62 92 08/12/20 05:00 91 H 91 08/12/20 04:56 91 H 77/45 L 91 08/12/20 04:53 90 59/41 L 90 08/12/20 04:30 36.9 C 101 H 92 08/12/20 04:26 36.9 C 100 H 109/56 L 92 08/12/20 04:12 103 H 36 H 93 08/12/20 04:00 37.2 C 105 H 115/51 L 93 08/12/20 03:56 37.2 C 104 H 119/53 L 93 08/12/20 03:30 37.2 C 105 H 93 08/12/20 03:26 37.2 C 106 H 117/53 L 93 08/12/20 03:00 37.4 C 106 H 93 08/12/20 02:58 37.4 C 107 H 119/52 L 93 08/12/20 02:56 37.4 C 106 H 119/52 L 93 08/12/20 02:30 37.5 C 107 H 93 08/12/20 02:26 37.5 C 106 H 120/57 L 93 08/12/20 02:00 37.6 C H 101 H 94 08/12/20 01:56 37.6 C H 101 H 107/58 L 94 08/12/20 01:30 37.8 C H 103 H 113/58 L 93 08/12/20 01:26 37.8 C H 103 H 110/60 94 08/12/20 01:09 104 H 36 H 93 08/12/20 01:00 37.9 C H 102 H 93 08/12/20 00:56 37.9 C H 101 H 106/53 L 93 08/12/20 00:30 38.0 C H 101 H 08/12/20 00:26 38.0 C H 102 H 102/54 L 08/12/20 00:00 38.3 C H 100 H 118/55 L 08/11/20 23:56 38.3 C H 98 H 109/45 L 08/11/20 23:30 38.5 C H 100 H 08/11/20 23:26 38.5 C H 100 H 108/46 L 08/11/20 23:01 38.8 C H 102 H 36 H 08/11/20 22:59 38.8 C H 101 H 36 H 108/50 L 08/11/20 22:56 38.9 C H 102 H 36 H 106/48 L 08/11/20 22:30 39.2 C H 104 H 36 H 08/11/20 22:29 36 H 08/11/20 22:25 39.2 C H 104 H 36 H 114/53 L 08/11/20 22:00 39.4 C H 104 H 30 H 08/11/20 21:55 39.3 C H 104 H 30 H 132/65 08/11/20 21:30 116 H 27 H 88 L Laboratory Results 08/12/20 08/12/20 08/12/20 Range/Units 11:51 07:53 05:45 WBC (4.8-10.8) K/uL RBC (4.2-5.4) M/uL Hgb (12.0-16.0) g/dL Hct (37-47) % MCV (80-100) fL MCH (25-34) pg MCHC (32-36) g/dL RDW Std Deviation (36.4-46.3) fL RDW Coeff of Jason (11.5-14.5) % Plt Count (130-400) K/uL MPV (7.4-10.4) fL Immature Gran % (Auto) % Neut % (Auto) % Lymph % (Auto) % [place] % (Auto) % Eos % (Auto) % Baso % (Auto) % Neut # (Auto) (1.4-6.5) K/uL Lymph # (Auto) (1.2-3.4) K/uL [place] # (Auto) (0.11-0.59) K/uL Eos # (Auto) (0-0.5) K/uL Baso # (Auto) (0-0.2) K/uL Immature Gran # (Auto) (0.00-0.02) K/uL Absolute Nucleated RBC (0-0) K/uL Nucleated RBC % (auto) % Sample Site POC pH (7.35-7.45) POC pCO2 (35-46) mmHg POC pO2 (80-95) mmHg POC HCO3 (19-24) harman/L POC Total CO2 (24-31) mmol/L POC Base Excess (-9-1.8) harman/L POC ABG O2 Sat (90-95) % John Test O2 Delivery Device POC O2 Rate Minute Ventilation POC FiO2 % Tidal Volume PEEP Sodium (136-145) mmol/L Potassium (3.5-5.1) mmol/L Chloride (98-107) mmol/L Carbon Dioxide (21-32) mmol/L Anion Gap (3-11) BUN (7-18) mg/dl Creatinine (0.6-1.2) mg/dl Est Cr Clr Drug Dosing ml/min Est GFR ( Amer) Est GFR (Non-Af Amer) BUN/Creatinine Ratio (10-20) Glucose (70-99) mg/dl POC Glucose 184 H 192 H 202 H (70-99) mg/dl Calcium (8.5-10.1) mg/dl Phosphorus (2.5-4.9) mg/dl Magnesium (1.8-2.4) mg/dl Total Bilirubin (0.2-1) mg/dl AST (15-37) U/L ALT (12-78) U/L Alkaline Phosphatase (45-117) U/L Total Protein (6.4-8.2) gm/dl Albumin (3.4-5.0) gm/dl Globulin (2.5-4.0) gm/dl Albumin/Globulin Ratio (0.9-2) 08/12/20 08/12/20 08/12/20 Range/Units 05:42 05:42 04:31 WBC 19.85 H (4.8-10.8) K/uL RBC 4.07 L (4.2-5.4) M/uL Hgb 11.8 L (12.0-16.0) g/dL Hct 37.4 (37-47) % MCV 91.9 (80-100) fL MCH 29.0 (25-34) pg MCHC 31.6 L (32-36) g/dL RDW Std Deviation 50.7 H (36.4-46.3) fL RDW Coeff of Jason 15.0 H (11.5-14.5) % Plt Count 236 (130-400) K/uL MPV 9.8 (7.4-10.4) fL Immature Gran % (Auto) 4.2 % Neut % (Auto) 88.0 % Lymph % (Auto) 5.4 % [place] % (Auto) 1.9 % Eos % (Auto) 0.1 % Baso % (Auto) 0.4 % Neut # (Auto) 17.47 H (1.4-6.5) K/uL Lymph # (Auto) 1.08 L (1.2-3.4) K/uL [place] # (Auto) 0.38 (0.11-0.59) K/uL Eos # (Auto) 0.01 (0-0.5) K/uL Baso # (Auto) 0.07 (0-0.2) K/uL Immature Gran # (Auto) 0.84 H (0.00-0.02) K/uL Absolute Nucleated RBC 0.06 H (0-0) K/uL Nucleated RBC % (auto) 0.3 % Sample Site Art Line POC pH 7.24 L (7.35-7.45) POC pCO2 59 H (35-46) mmHg POC pO2 79 L (80-95) mmHg POC HCO3 25 H (19-24) harman/L POC Total CO2 27 (24-31) mmol/L POC Base Excess -3.0 (-9-1.8) harman/L POC ABG O2 Sat 93.0 (90-95) % John Test NA O2 Delivery Device Ventilator POC O2 Rate 36 Minute Ventilation 11.4 POC FiO2 70 % Tidal Volume 300 PEEP 12 Sodium 141 (136-145) mmol/L Potassium 4.1 (3.5-5.1) mmol/L Chloride 110 H (98-107) mmol/L Carbon Dioxide 26 (21-32) mmol/L Anion Gap 5.0 (3-11) BUN 33 H (7-18) mg/dl Creatinine 0.91 (0.6-1.2) mg/dl Est Cr Clr Drug Dosing 65.5 ml/min Est GFR ( Amer) 78.9 Est GFR (Non-Af Amer) 68.1 BUN/Creatinine Ratio 36.3 H (10-20) Glucose 209 H (70-99) mg/dl POC Glucose (70-99) mg/dl Calcium 8.6 (8.5-10.1) mg/dl Phosphorus 4.1 (2.5-4.9) mg/dl Magnesium 2.4 (1.8-2.4) mg/dl Total Bilirubin 0.4 (0.2-1) mg/dl AST 60 H (15-37) U/L ALT 45 (12-78) U/L Alkaline Phosphatase 169 H D (45-117) U/L Total Protein 6.1 L (6.4-8.2) gm/dl Albumin 2.0 L (3.4-5.0) gm/dl Globulin 4.1 H (2.5-4.0) gm/dl Albumin/Globulin Ratio 0.5 L (0.9-2) 08/11/20 08/11/20 08/11/20 Range/Units 23:38 23:27 22:15 WBC (4.8-10.8) K/uL RBC (4.2-5.4) M/uL Hgb (12.0-16.0) g/dL Hct (37-47) % MCV (80-100) fL MCH (25-34) pg MCHC (32-36) g/dL RDW Std Deviation (36.4-46.3) fL RDW Coeff of Jason (11.5-14.5) % Plt Count (130-400) K/uL MPV (7.4-10.4) fL Immature Gran % (Auto) % Neut % (Auto) % Lymph % (Auto) % [place] % (Auto) % Eos % (Auto) % Baso % (Auto) % Neut # (Auto) (1.4-6.5) K/uL Lymph # (Auto) (1.2-3.4) K/uL [place] # (Auto) (0.11-0.59) K/uL Eos # (Auto) (0-0.5) K/uL Baso # (Auto) (0-0.2) K/uL Immature Gran # (Auto) (0.00-0.02) K/uL Absolute Nucleated RBC (0-0) K/uL Nucleated RBC % (auto) % Sample Site Art Line Art Line POC pH 7.24 L 7.23 L (7.35-7.45) POC pCO2 58 H 61 H (35-46) mmHg POC pO2 75 L 103 H (80-95) mmHg POC HCO3 25 H 26 H (19-24) harman/L POC Total CO2 26 27 (24-31) mmol/L POC Base Excess -3.0 -2.0 (-9-1.8) harman/L POC ABG O2 Sat 92.0 96.0 H (90-95) % John Test NA NA O2 Delivery Device Ventilator Ventilator POC O2 Rate 36 30 Minute Ventilation 11.1 9.0 POC FiO2 60 80 % Tidal Volume 300 300 PEEP 20 20 Sodium (136-145) mmol/L Potassium (3.5-5.1) mmol/L Chloride (98-107) mmol/L Carbon Dioxide (21-32) mmol/L Anion Gap (3-11) BUN (7-18) mg/dl Creatinine (0.6-1.2) mg/dl Est Cr Clr Drug Dosing ml/min Est GFR ( Amer) Est GFR (Non-Af Amer) BUN/Creatinine Ratio (10-20) Glucose (70-99) mg/dl POC Glucose 170 H (70-99) mg/dl Calcium (8.5-10.1) mg/dl Phosphorus (2.5-4.9) mg/dl Magnesium (1.8-2.4) mg/dl Total Bilirubin (0.2-1) mg/dl AST (15-37) U/L ALT (12-78) U/L Alkaline Phosphatase (45-117) U/L Total Protein (6.4-8.2) gm/dl Albumin (3.4-5.0) gm/dl Globulin (2.5-4.0) gm/dl Albumin/Globulin Ratio (0.9-2) 08/11/20 08/11/20 Range/Units 20:10 16:05 WBC (4.8-10.8) K/uL RBC (4.2-5.4) M/uL Hgb (12.0-16.0) g/dL Hct (37-47) % MCV (80-100) fL MCH (25-34) pg MCHC (32-36) g/dL RDW Std Deviation (36.4-46.3) fL RDW Coeff of Jason (11.5-14.5) % Plt Count (130-400) K/uL MPV (7.4-10.4) fL Immature Gran % (Auto) % Neut % (Auto) % Lymph % (Auto) % [place] % (Auto) % Eos % (Auto) % Baso % (Auto) % Neut # (Auto) (1.4-6.5) K/uL Lymph # (Auto) (1.2-3.4) K/uL [place] # (Auto) (0.11-0.59) K/uL Eos # (Auto) (0-0.5) K/uL Baso # (Auto) (0-0.2) K/uL Immature Gran # (Auto) (0.00-0.02) K/uL Absolute Nucleated RBC (0-0) K/uL Nucleated RBC % (auto) % Sample Site POC pH (7.35-7.45) POC pCO2 (35-46) mmHg POC pO2 (80-95) mmHg POC HCO3 (19-24) harman/L POC Total CO2 (24-31) mmol/L POC Base Excess (-9-1.8) harman/L POC ABG O2 Sat (90-95) % John Test O2 Delivery Device POC O2 Rate Minute Ventilation POC FiO2 % Tidal Volume PEEP Sodium (136-145) mmol/L Potassium (3.5-5.1) mmol/L Chloride (98-107) mmol/L Carbon Dioxide (21-32) mmol/L Anion Gap (3-11) BUN (7-18) mg/dl Creatinine (0.6-1.2) mg/dl Est Cr Clr Drug Dosing ml/min Est GFR ( Amer) Est GFR (Non-Af Amer) BUN/Creatinine Ratio (10-20) Glucose (70-99) mg/dl POC Glucose 81 123 H (70-99) mg/dl Calcium (8.5-10.1) mg/dl Phosphorus (2.5-4.9) mg/dl Magnesium (1.8-2.4) mg/dl Total Bilirubin (0.2-1) mg/dl AST (15-37) U/L ALT (12-78) U/L Alkaline Phosphatase (45-117) U/L Total Protein (6.4-8.2) gm/dl Albumin (3.4-5.0) gm/dl Globulin (2.5-4.0) gm/dl Albumin/Globulin Ratio (0.9-2) Coding Level of Care Code Critical Care 1st 30-74 mins Diagnoses Acute hypoxemic respiratory failure due to COVID-19 U07.1; J96.01 Mood disorder F39 DMII (diabetes mellitus, type 2) E11.9 Time Spent (min) 95
[2020-08-12] MEDS: ARTIFICIAL TEARS OP OINT 3.5 GM TUBE OP SCH ×4 (11:40→23:52)
[2020-08-12] MEDS: REMDESIVIR 100 MG in SODIUM CHLORIDE 0.9% 230 ML IV SCH (11:40)
[2020-08-12] MEDS: SODIUM CHLORIDE 0.9% 10ML FLUSH IV SCH (11:40)
[2020-08-12] MEDS: INSULIN ASPART 100 UNITS/ML 3 ML PEN SC SCH ×3 (11:52→23:48)
[2020-08-12] MEDS ORDERED: PHARMACY GLYCEMIC MGMT CONSULT PRN (12:19)
[2020-08-12] MEDS ORDERED: NURSING ICU ELECTROLYTE ORDER ONE (12:52)
[2020-08-12] MEDS ORDERED: ICU ELECTROLYTE REPLACEMENT PROTOCOL ONE (13:00)
[2020-08-12] MEDS: ALBUTEROL HFA 8 GM INHALER INH SCH (13:20)
[2020-08-12] MEDS: PEPTAMEN INTENSE VHP 1.0 CAL 1,000 ML BAG GT SCH (14:51)
--- NOTE | 2020-08-12 15:28 | Pharmacy Report ---
Pharmacy Glycemic Short Note 2 - Date of Service August 12, 2020 - Glycemic Short BSG Results (Last 24 hours): 08/11/20 08/11/20 08/11/20 16:05 20:10 23:38 Glucose POC Glucose 123 H 81 170 H 08/12/20 08/12/20 08/12/20 05:42 05:45 07:53 Glucose 209 H POC Glucose 202 H 192 H 08/12/20 11:51 Glucose POC Glucose 184 H OUTPATIENT ANTIDIABETIC REGIMEN: * Metformin 1gm PO BID * Sitagliptin 100mg daily * A1c = ? ASSESSMENT: * Type 2 diabetic admitted to ICU for COVID pna, ARDS * [facility] 6mg IV given this AM (but will be held tomorrow), tube feeds to begin as well today. Norepi has been weaned off. * BSGs running slightly above goal today, however acceptable. * Will continue basal/bolus SQ regimen. Lantus per "mild-moderate" stress scale due to downward trending BSGs yesterday following low dose Lantus while NPO despite steroid admin. Novolog will be given Q 6 hrs per "severe" stress dosing PLAN FOR INPATIENT GLYCEMIC CONTROL: * Hold outpatient oral diabetes medications * Basal insulin * Lantus SQ BID * 0 units if BSG less than 180 * 8 units if BSG 181-220 * 15 units if BSG above 220 * Bolus insulin * NovoLog per scale Q6hrs * Goal Range: Low 110 mg/dL - High 140 mg/dL * Correction Factor: 18 mg/dL/unit * Nutritional / Prandial insulin per carb ratio of 1 unit per 6 grams CHO consumed - please carbs in tube feeds PLAN FOR DISCHARGE: * to be determined
--- NOTE | 2020-08-12 15:35 | Hospitalist Progress Note ---
Date of Service August 12, 2020 Assessment & Plan (1) Severe sepsis: Secondary to covid pneumonia and is complicated by UTI, Resuscitated and remains hemodynamically stable Clinically stable and getting better gradually Remains critical but stable (2) Pneumonia due to COVID-19 virus: Cont Decadron, continue remdesivir with improvement in creatinine overnight. She is also on cefepime and doxycycline for possible superinfection with bacteria Remains stable but requiring high flow oxygen to maintain saturation Dexamethasone has been discontinued Continue with remdesivir Doxycycline has been discontinued due to interaction with sedation Continue with intravenous cefepime (3) Acute respiratory failure: Requiring high flow via nasal cannula at max capacity and proning. She is a patient who may ultimately end up on the ventilator. Has been requiring high flow oxygen and doing proning and BiPAP at nighttime Will ask for pulmonary evaluation as the patient may need intubation down the line Remains intubated since last evening of 08/11/2020 (4) UTI (urinary tract infection): She is covered empirically on broad-spectrum antibiotics. De-escalate per clinical improvement and based on culture results. (5) DMII (diabetes mellitus, type 2): Recent A1c reflects good control. She is currently at goal on basal bolus insulin, and is requiring more than normal in the setting of steroid use. (6) Mood disorder: Chronic, stable. Continue Abilify, venlafaxine, and Wellbutrin per home regimen. Has been getting Zyprexa as needed (7) DVT prophylaxis: Lovenox Full code Disposition-continue PCU monitoring Admission and Anticipated Discharge Date Admission Date: August 09, 2020 Subjective He is requiring patient was seen and examined in Covid unit He was admitted with severe sepsis secondary to Covid pneumonia and complicated by UTI She still is requiring high flow oxygen to maintain saturation Feels a little better today 08/12/2020 The patient was seen and examined in Covid unit She has been intubated since last evening He remains stable and sedated Review of Systems Review of Systems: Unobtainable due to endotracheal tube Physical Exam Physical Exam: Sedated on mechanical ventilator Constitutional: well developed, well nourished, + ill appearing and + obese Eyes: PERRL, conjunctivae normal, anicteric sclerae ENMT: external ear and nose normal, oropharynx normal Neck: trachea midline, no thyromegaly Respiratory: no respiratory distress Auscultation: + diminished lung sounds and + crackles (Bibasilar crackles) Cardiovascular: Rate/Rhythm: regular rate and regular rhythm Heart Sounds: no murmur Extremities: + edema (Trace to 1+ edema bilaterally) Gastrointestinal (Abdomen): Inspection/Auscultation: normal bowel sounds; abdomen not distended Percussion/Palpation: abdomen soft; abdomen nontender Neurologic: Sedated on mechanical ventilator Lymphatic: no cervical or axillary lymphadenopathy Results & Data Results & Data ([facility]) Vital Signs (Past 12 Hours) Vital Signs Temp Pulse Resp BP Pulse Ox 08/12/20 14:30 37.3 C 91 H 92 08/12/20 14:26 37.3 C 92 H 116/52 L 92 08/12/20 14:00 37.3 C 90 93 08/12/20 13:56 37.3 C 90 107/49 L 92 08/12/20 13:30 37.4 C 93 H 93 08/12/20 13:26 37.4 C 92 H 111/50 L 93 08/12/20 13:00 37.4 C 92 H 93 08/12/20 12:56 37.4 C 93 H 110/60 93 08/12/20 12:30 37.5 C 91 H 93 08/12/20 12:26 37.5 C 91 H 121/59 L 93 08/12/20 12:00 37.6 C H 86 92 08/12/20 11:56 37.6 C H 87 114/56 L 92 08/12/20 11:30 37.6 C H 80 89 L 08/12/20 11:26 37.6 C H 85 97/47 L 91 08/12/20 11:03 84 36 H 90 08/12/20 11:00 37.6 C H 86 92 08/12/20 10:56 37.6 C H 89 111/57 L 92 08/12/20 10:30 37.5 C 88 92 08/12/20 10:26 37.5 C 88 110/59 L 92 08/12/20 10:00 37.5 C 90 92 08/12/20 09:56 37.5 C 88 105/57 L 92 08/12/20 09:30 37.5 C 87 92 08/12/20 09:26 37.4 C 82 108/57 L 91 08/12/20 09:00 37.4 C 89 91 08/12/20 08:56 37.5 C 90 113/54 L 91 08/12/20 08:30 37.4 C 89 93 08/12/20 08:26 37.4 C 89 110/58 L 93 08/12/20 08:25 89 37 H 93 08/12/20 08:00 37.4 C 88 90 08/12/20 07:56 37.4 C 88 107/54 L 90 08/12/20 07:31 36.9 C 86 130/64 08/12/20 07:30 36.9 C 89 08/12/20 07:26 36.9 C 94 H 120/57 L 90 08/12/20 07:15 37.0 C 90 97 08/12/20 07:00 37.0 C 90 97 08/12/20 06:56 37.0 C 90 96/34 L 96 08/12/20 06:50 37.0 C 90 98 08/12/20 06:26 36.5 C 88 111/54 L 98 08/12/20 05:56 36.7 C 89 115/47 L 96 08/12/20 05:30 36.7 C 90 94 08/12/20 05:26 36.9 C 89 107/45 L 94 08/12/20 05:04 36.9 C 90 110/62 92 08/12/20 05:00 91 H 91 08/12/20 04:56 91 H 77/45 L 91 08/12/20 04:53 90 59/41 L 90 08/12/20 04:30 36.9 C 101 H 92 08/12/20 04:26 36.9 C 100 H 109/56 L 92 08/12/20 04:12 103 H 36 H 93 08/12/20 04:00 37.2 C 105 H 115/51 L 93 08/12/20 03:56 37.2 C 104 H 119/53 L 93 Laboratory Results Short CBC 08/12/20 Range/Units 05:42 WBC 19.85 H (4.8-10.8) K/uL Hgb 11.8 L (12.0-16.0) g/dL Hct 37.4 (37-47) % Plt Count 236 (130-400) K/uL BMP 08/12/20 05:42 Sodium 141 Potassium 4.1 Chloride 110 H Carbon Dioxide 26 BUN 33 H Creatinine 0.91 Glucose 209 H Calcium 8.6 Liver Function 08/12/20 Range/Units 05:42 Total Bilirubin 0.4 (0.2-1) mg/dl AST 60 H (15-37) U/L ALT 45 (12-78) U/L Alkaline Phosphatase 169 H D (45-117) U/L Albumin 2.0 L (3.4-5.0) gm/dl Medications Administered Current Inpatient Medications Acetaminophen (Acetaminophen 325 Mg Tab) 325 mg PO Q6H PRN PRN Reason: Mild Pain Stop: 09/09/20 02:53 Aripiprazole (Aripiprazole 10 Mg Tab) 10 mg PO [facility] Stop: 09/09/20 08:59 Last Admin: 08/12/20 08:33 Dose: 10 mg Documented by: Ascorbic Acid (Ascorbic Acid 500 Mg Tab) 1,000 mg PO [facility] Stop: 09/11/20 08:59 Last Admin: 08/12/20 08:24 Dose: 1,000 mg Documented by: Aspirin (Aspirin 81 Mg Chew) 81 mg PO BID [facility] Stop: 09/11/20 20:59 Atenolol (Atenolol 25 Mg Tablet) 25 mg PO [facility] Stop: 09/09/20 08:59 Last Admin: 08/12/20 08:10 Dose: Not Given Documented by: Atorvastatin Calcium (Atorvastatin 20 Mg Tab) 20 mg PO HS [facility] Stop: 09/09/20 20:59 Last Admin: 08/11/20 21:36 Dose: Not Given Documented by: Benzonatate (Benzonatate 100 Mg Capsule) 100 mg PO TID PRN PRN Reason: Cough Stop: 09/09/20 02:53 Last Admin: 08/10/20 08:45 Dose: 100 mg Documented by: Bupropion HCl (Bupropion Hcl 100 Mg Tablet) 100 mg PO Q8H [facility] Stop: 09/11/20 19:59 Dextrose (Dextrose 50% 50 Ml Syringe) 25 - 50 ml IV UD PRN; Protocol PRN Reason: Hypoglycemia Protocol Stop: 09/09/20 02:53 Enoxaparin Sodium (Enoxaparin Inj 40 Mg/0.4 Ml Syr) 40 mg SQ [facility] Stop: 09/10/20 08:59 Last Admin: 08/12/20 08:25 Dose: 40 mg Documented by: Famotidine (Famotidine 20 Mg Tab) 20 mg PO BID [facility] Stop: 09/09/20 08:59 Last Admin: 08/12/20 08:27 Dose: 20 mg Documented by: Fentanyl Citrate (Fentanyl Bolus From Bag) 50 mcg IV Q60M PRN PRN Reason: Pain or Agitation Stop: 08/25/20 21:22 Folic Acid (Folic Acid 1 Mg Tab) 1 mg PO QAM [facility] Stop: 09/09/20 08:59 Last Admin: 08/12/20 08:34 Dose: 1 mg Documented by: Glucagon (Glucagon For Inj 1 Mg Vial) 1 mg SQ UD PRN; Protocol PRN Reason: Hypoglycemia Protocol Stop: 09/09/20 02:53 Glucose (Glucose 10 Tabs/Tube) 4 - 8 tabs PO UD PRN; Protocol PRN Reason: Hypoglycemia Protocol Stop: 09/09/20 02:53 Glucose (Glucose 40% Gel 15 Gm Tube) 15 - 30 gm PO UD PRN; Protocol PRN Reason: Hypoglycemia Protocol Stop: 09/09/20 02:53 Remdesivir 100 mg/ Sodium (Chloride) 250 mls @ 250 mls/hr IV Q24H [facility]; Protocol Stop: 08/14/20 12:59 Last Infusion: 08/12/20 12:46 Dose: Infused Documented by: Cefepime HCl 2,000 mg/ Syringe 20 mls @ 5 mls/min IV Q8H [facility] Stop: 08/16/20 00:00 Last Admin: 08/12/20 08:19 Dose: 5 mls/min Documented by: Cisatracurium Besylate 40 mg/ (Sodium Chloride) 100 mls @ 13.65 mls/hr IV .Q7H20M [facility]; Protocol Stop: 09/10/20 21:29 Last Titration: 08/12/20 13:31 Dose: 2 mcg/kg/min, 13.7 mls/hr Documented by: Midazolam HCl (Versed) 125 mg in 250 mls @ 10 mls/hr IV .Q25H [facility]; Protocol Stop: 09/10/20 21:29 Last Titration: 08/12/20 07:45 Dose: 5 mg/hr, 10 mls/hr Documented by: Fentanyl Citrate (Fentanyl Drip) 1,250 mcg in 250 mls @ 25 mls/hr IV .Q10H [facility]; Protocol Stop: 08/25/20 21:29 Last Admin: 08/12/20 08:05 Dose: 125 mcg/hr, 25 mls/hr Documented by: Acetaminophen (Ofirmev) 1,000 mg in 100 mls @ 400 mls/hr IV Q8H PRN PRN Reason: Fever Stop: 08/14/20 21:55 Last Infusion: 08/11/20 22:19 Dose: Infused Documented by: Dexamethasone Sodium Phosphate (6 mg/ Syringe) 1.5 mls @ 1 mls/min IV DAILY [facility] Stop: 08/21/20 08:59 Last Admin: 08/12/20 08:20 Dose: 1 mls/min Documented by: Norepinephrine Bitartrate (Levophed/D5w) 8 mg in 508 mls @ 0 mls/hr IV .Q0M [facility]; Protocol Stop: 09/11/20 04:59 Last Titration: 08/12/20 07:46 Dose: 0 mcg/kg/min, 0 mls/hr Documented by: Insulin Aspart (Insulin Aspart 100 Units/Ml 3 Ml Pen) 0 units SC Q6 [facility] Stop: 09/09/20 02:53 Last Admin: 08/12/20 11:52 Dose: 1 units Documented by: Insulin Glargine (Insulin Glargine Solostar 100 Units/Ml 3 Ml Pen) 0 units SC BID [facility]; Protocol Stop: 09/11/20 20:59 Lamotrigine (Lamotrigine 100 Mg Tab) 150 mg PO HS [facility] Stop: 09/09/20 20:59 Last Admin: 08/11/20 21:36 Dose: Not Given Documented by: Levalbuterol HCl (Levalbuterol Tartrate 15 Gm Hfa.Aer.Ad) 2 puffs INH Q6H PRN PRN Reason: Shortness Of Breath Or Wheezing Stop: 09/09/20 02:53 Midazolam HCl (Midazolam Bolus From Bag) 2 mg IV Q60M PRN PRN Reason: Sedation Stop: 09/10/20 21:22 Miscellaneous (Carbohydrates For Hypoglycemia ) 15 - 30 gm PO UD PRN PRN Reason: Hypoglycemia Protocol Stop: 09/09/20 02:53 Miscellaneous Information (Cefepime Consult Active) 1 ea N/A UD PRN PRN Reason: Consult Stop: 09/09/20 02:53 Miscellaneous Information (Pharmacy Glycemic Mgmt Consult) 1 ea N/A UD PRN PRN Reason: Consult Stop: 09/11/20 12:18 Multi-Ingredient Cream (Artificial Tears Op Oint 3.5 Gm Tube) 1 appln OP Q4 [facility] Stop: 09/11/20 11:59 Last Admin: 08/12/20 11:40 Dose: 1 appln Documented by: Multivitamins/Minerals (Multi Vit W/Minerals Liquid 15 Ml Udp) 15 ml PO QAM [facility] Stop: 09/12/20 08:59 Nutritional Formula (Peptamen Intense Vhp 1.0 Sage 1,000 Ml Bag) 0 ml GT CONT [facility]; Protocol Stop: 09/11/20 12:59 Last Admin: 08/12/20 14:51 Dose: 15 ml Documented by: Sodium Chloride (Sodium Chloride 0.9% 10ml Flush) 30 ml IV Q24H [facility] Stop: 08/14/20 12:01 Last Admin: 08/12/20 11:40 Dose: 30 ml Documented by: Thiamine HCl (Thiamine Hcl 100 Mg Tab) 100 mg PO QAM [facility] Stop: 09/11/20 08:59 Last Admin: 08/12/20 08:24 Dose: 100 mg Documented by: Venlafaxine HCl (Venlafaxine Hcl 50 Mg Tab) 100 mg PO Q8H [facility] Stop: 09/11/20 19:59 Zinc Sulfate (Zinc Sulfate 220 Mg Capsule) [facility] [place] Stop: 09/11/20 08:59 Last Admin: 08/12/20 08:24 Dose: 220 mg Documented by:
[2020-08-12] MEDS: buPROPion HCl 100 MG TABLET PO SCH (19:26)
[2020-08-12] MEDS: VENLAFAXINE HCL 50 MG TAB PO SCH (19:26)
[2020-08-12] MEDS: ATORVASTATIN 20 MG TAB PO SCH (19:27)
[2020-08-12] MEDS: lamoTRIgine 100 MG TAB PO SCH (19:28)
[2020-08-12] MEDS ORDERED: DOXYCYCLINE HYCLATE 100 MG in DEXTROSE 5% 100 ML IV SCH (20:00)
[2020-08-12] MEDS: ASPIRIN 81 MG CHEW PO SCH (21:15)
[2020-08-12] MEDS: MIDAZOLAM HCL 125 MG/250 ML BAG IV SCH (22:26)
--- NOTE | 2020-08-12 23:01 | Communication Note ---
Date of Service: August 12, 2020 Procedure: Pronation Maneuver Attending: Dr. Gordon APC: Zac Baker PA-C Indication: Requiring lung recruitment intervention in the setting of advanced ARDS with poor lung compliance and oxygenation on standard ventilator settings. Patient requiring pronation in the setting of advanced ARDS per imaging, ventilator requirements, and calculated P:F ratio. Appropriate staff was assembled including myself, Respiratory Therapy, and Nursing Staff. A time-out was completed verifying correct patient, time from recent pronation/supination, current ventilator settings, review of any prior issues during pronation/supination maneuvers. Patient was fully undressed as to be able to view all current IV sites, central venous access sites, arterial lines, endotracheal tube, Tejada catheter, etc. After properly identifying/securing all lines, tubes, etc., the patient was papoosed using flat sheets. On my count, the patient was slid to the edge of the bed. After reevaluating all lines, tubes, etc., the patient was then placed on their side allowing for RT to maintain control of ET tube and ready for completion of Pronation maneuver. Final check of all lines, tubes, etc. was completed by myself and nursing staff. Blood pressure, heart rhythm, and oxygen saturations were monitored for several minutes s/p maneuver. Discussion was held with patients RN and RT regarding ongoing management. Patient tolerated maneuver well. No immediate complications were noted. TIME PRONE: 2215 I have personally spent 25 minutes of critical care time in the direct management of this patient. This is a life/limb threatening event. This includes time spent evaluating patient, direct bedside care, chart review, placing orders, interpretation of diagnostic studies, discussion with consultants, patient, and family members, as well as other required patient management activities. This time is exclusive of all separately billable procedures, and teaching time and separate from and in addition to any other critical care service time. Coding Level of Care Code Critical Care ea addt'l 30 min Time Spent (min) 25
[2020-08-13] MEDS: CISATRACURIUM BESYLATE 40 MG in 0.9 % SODIUM CHLORIDE 80 ML IV SCH ×8 (00:45→22:52)
[2020-08-13] MEDS: ACETAMINOPHEN 1,000 MG/100 ML VIAL IV PRN ×4 (03:52→21:59)
[2020-08-13] MEDS: buPROPion HCl 100 MG TABLET PO SCH ×3 (03:53→20:02)
[2020-08-13] MEDS: ARTIFICIAL TEARS OP OINT 3.5 GM TUBE OP SCH ×6 (03:54→23:42)
[2020-08-13] MEDS: VENLAFAXINE HCL 50 MG TAB PO SCH ×3 (03:54→20:02)
[2020-08-13 05:40] LABS: iSTAT Art Bld Gas pCO2 Correct 62 mmHg (35-46); iSTAT Art Bld Gas pH Corrected 7.258 (7.35-7.45); iSTAT Arterial Blood Gas HCO3 27 meg/L (19-24); iSTAT Arterial Blood Gas pCO2 59 mmHg (35-46); iSTAT Arterial Blood Gas pH 7.28 (7.35-7.45); iSTAT Arterial Blood Gas pO2 91 mmHg (80-95); iSTAT Arterial Blood Gas pO2 C 99; iSTAT Carbon Dioxide 29 mmol/L (24-31); iSTAT FiO2 60 %; iSTAT Hematocrit 32 % (37-47); iSTAT Hemoglobin 10.9 g/dl (12.0-16.0); iSTAT Potassium 4.3 mmol/L (3.3-5.0); iSTAT Site Art Line; iSTAT Sodium 145 mmol/L (135-144)
[2020-08-13] MEDS: fentaNYL DRIP 1,250 MCG/250 ML BAG IV SCH ×4 (05:55→19:53)
[2020-08-13] MEDS: INSULIN ASPART 100 UNITS/ML 3 ML PEN SC SCH ×4 (07:01→23:43)
[2020-08-13 07:06] LABS: Basophils # (auto) 0.03 K/uL (0-0.2); Basophils % (auto) 0.2 %; Eosinophils # (auto) 0.04 K/uL (0-0.5); Eosinophils % (auto) 0.3 %; Hematocrit (blood only) 35.3 % (37-47); Hemoglobin 10.9 g/dL (12.0-16.0); Immature Granulocytes # (auto) 0.66 K/uL (0.00-0.02); Lymphocytes % (auto) 4.6 %; Mean Corpuscular Hemoglobin 29.1 pg (25-34); Mean Corpuscular Hgb Conc 30.9 g/dL (32-36); Mean Corpuscular Volume 94.1 fL (80-100); Mean Platelet Volume 10.1 fL (7.4-10.4); Monocytes # (auto) 0.33 K/uL (0.11-0.59); Monocytes % (auto) 2.5 %; Neutrophils # (auto) 11.42 K/uL (1.4-6.5); Neutrophils % (auto) 87.4 %; Nucleated RBC # (auto) 0.04 K/uL (0-0); Nucleated RBC % (auto) 0.3 %; Platelet Count 183 K/uL (130-400); RDW Coefficient of Variation 15.5 % (11.5-14.5); RDW Standard Deviation 53.1 fL (36.4-46.3); Red Blood Count 3.75 M/uL (4.2-5.4); White Blood Count 13.08 K/uL (4.8-10.8)
[2020-08-13] MEDS: CEFEPIME 2,000 MG in SYRINGE 0 ML IV SCH ×3 (07:32→23:43)
[2020-08-13 07:43] LABS: Albumin Level 1.7 gm/dl (3.4-5.0); BUN Creatinine Ratio 39.2 (10-20); Calcium 8.7 mg/dl (8.5-10.1); Creatinine Clr Calc Pharmacy 72.6 ml/min; Est GFR (African American) 86.9; Magnesium 2.5 mg/dl (1.8-2.4); Potassium 4.2 mmol/L (3.5-5.1)
[2020-08-13] MEDS: MULTI VIT W/MINERALS LIQUID 15 ML UDP PO SCH (07:47)
[2020-08-13] MEDS: INSULIN GLARGINE SOLOSTAR 100 UNITS/ML 3 ML PEN SC SCH ×2 (07:48→23:43)
[2020-08-13] MEDS: ENOXAPARIN INJ 40 MG/0.4 ML SYR SQ SCH (07:49)
[2020-08-13] MEDS: ARIPiprazole 10 MG TAB PO SCH (07:51)
[2020-08-13] MEDS: FOLIC ACID 1 MG TAB PO SCH (07:52)
[2020-08-13] MEDS: FAMOTIDINE 20 MG TAB PO SCH ×2 (07:53→20:03)
[2020-08-13] MEDS: ASCORBIC ACID 500 MG TAB PO SCH (07:54)
[2020-08-13] MEDS: THIAMINE HCL 100 MG TAB PO SCH (07:55)
[2020-08-13] MEDS: ZINC SULFATE 220 MG CAPSULE PO SCH (07:56)
[2020-08-13 07:57] LABS: Albumin Globulin Ratio 0.4 (0.9-2); Bilirubin,Total 0.4 mg/dl (0.2-1); Globulin 3.8 gm/dl (2.5-4.0); Phosphorus 2.8 mg/dl (2.5-4.9); Total Protein 5.5 gm/dl (6.4-8.2)
[2020-08-13] MEDS: ASPIRIN 81 MG CHEW PO SCH ×2 (08:11→20:06)
[2020-08-13] MEDS: ATENOLOL 25 MG TABLET PO SCH (08:12)
--- NOTE | 2020-08-13 08:22 | XRay Report ---
XR chest 1V portable HISTORY: 59 years-old Female f/u acute hypoxia. Respiratory failure. COMPARISON: Chest radiograph 08/12/2020 TECHNIQUE: Portable AP view of the chest FINDINGS: Endotracheal tube overlies the midline, 3.5 cm superior to the wolf. Enteric tube courses below the diaphragm outside the [id number]. Left subclavian central venous catheter is again noted distal t ip in the region of the left brachiocephalic vein. Extensive bilateral airspace opacities have mildly improved. No pneumothorax or large pleural effusion. Bones appear grossly intact. IMPRESSION: 1. Lines and tubes as above. 2. Mild improvement of the extensive bilateral airspace opacities. ACT 112: Negative or not required by law. The above report was generated using voice recognition software. It may contain grammatical, syntax o r spelling errors. Electronically signed by: Cruz Retana M.D. 08/13/2020 8:21 AM
--- NOTE | 2020-08-13 09:18 | Critical Care Progress Note ---
Date of Service August 13, 2020 Assessment & Plan (1) Acute hypoxemic respiratory failure due to COVID-19: Reason Critically Ill: 59-year-old female with acute hypoxic respiratory failure secondary to Covid pneumonia and obesity BMI 39.4 PLAN: Neuro: Neuromuscular blockade -Holding steroids while on neuromuscular blockade, discontinue doxycycline as I do not feel that this is contact representative of an atypical superimposed pneumonia and at risk for interactions with neuromuscular junction given neuromuscular blockade Mood disorder -Effexor adjustment Resp: Acute hypoxic respiratory failure secondary to COVID-19 -ARDSnet high PEEP low FiO2 with pronation therapy -Poor compliance in supine position she is in the 20s to 30s for compliance -No additional fluid at this time consider diuresis -Hypoxic during induction of intubation, concern for possible anoxic injury -Continue remdesivir COVID-19 positivity date per ED note indicate 1 week prior to presentation to ED (08/02/2020?) Covid day: 12 CV: Hypotension: Resolved Fluids/Renal: Electrolyte protocol ID: Cefepime for superimposed bacterial infection -Day 4 of 7 GI/Nutrition: Start trickle tube feeds Heme: Mild anemia DVT prophylaxis: Lovenox 40 twice daily for Covid associated DVT prophylaxis Endocrine: ICU hyperglycemia protocol Vascular access: Left subclavian placed 1/6 right arterial line placed / Code Status: Full Disposition: ICU Patient was discussed in multidisciplinary rounds. Patient's called to nursing staff and indicated he would prefer patient be DNR/DNI in event of cardiac arrest. I have subsequently updated her CODE STATUS. Attempted to contact the patient's left message for him to call hospital for update as needed. (2) Mood disorder: (3) DMII (diabetes mellitus, type 2): Admission and Anticipated Discharge Date Admission Date: August 09, 2020 Subjective No overnight events. The patient was successfully proned, her compliance has not significantly improved nor has her oxygenation requirements changed with pronation therapy. Review of Systems Review of Systems: Unobtainable due to endotracheal tube Physical Exam Physical Exam: General: GCS 3 TP, in prone position Skin: Warm, dry, Head: Atraumatic Ears, nose, mouth and throat: airway obscured by endotracheal tube Cardiovascular: Normal peripheral perfusion Respiratory: Ventilator settings reviewed Gastrointestinal: Non distended Musculoskeletal: No deformity Results & Data Results & Data ([facility]) Vital Signs (Past 12 Hours) Vital Signs Temp Pulse Resp BP Pulse Ox 08/13/20 08:15 38.4 C H 100 H 92 08/13/20 08:00 38.4 C H 101 H 90 08/13/20 07:57 38.4 C H 102 H 121/47 L 91 08/13/20 07:45 38.4 C H 102 H 91 08/13/20 07:37 104 H 36 H 92 08/13/20 07:30 38.4 C H 101 H 92 08/13/20 07:27 38.4 C H 101 H 108/46 L 92 08/13/20 07:15 38.3 C H 97 H 92 08/13/20 07:00 38.3 C H 99 H 92 08/13/20 06:57 38.3 C H 102 H 106/46 L 92 08/13/20 06:50 38.3 C H 99 H 91 08/13/20 06:30 38.3 C H 100 H 91 08/13/20 06:27 38.3 C H 102 H 96/48 L 91 08/13/20 06:00 38.2 C H 98 H 91 08/13/20 05:57 38.2 C H 99 H 102/45 L 91 08/13/20 05:30 38.2 C H 97 H 91 08/13/20 05:27 38.2 C H 98 H 98/42 L 90 08/13/20 05:00 38.3 C H 97 H 91 08/13/20 04:57 38.3 C H 97 H 96/42 L 91 08/13/20 04:31 100 H 37 H 92 08/13/20 04:30 38.3 C H 99 H 92 08/13/20 04:27 38.3 C H 100 H 113/42 L 92 08/13/20 04:00 38.4 C H 98 H 135/56 L 92 08/13/20 03:57 38.4 C H 97 H 113/44 L 92 08/13/20 03:30 38.3 C H 96 H 92 08/13/20 03:27 38.3 C H 98 H 117/48 L 92 08/13/20 03:00 38.2 C H 95 H 93 08/13/20 02:57 38.2 C H 96 H 115/47 L 93 08/13/20 02:30 38.1 C H 96 H 94 08/13/20 02:27 38.1 C H 95 H 111/45 L 93 08/13/20 02:00 38.0 C H 96 H 92 08/13/20 01:58 38.0 C H 96 H 93 08/13/20 01:57 38.0 C H 95 H 111/45 L 93 08/13/20 01:27 37.9 C H 96 H 109/45 L 92 08/13/20 00:57 37.9 C H 93 H 97/44 L 93 08/13/20 00:30 37.9 C H 94 H 92 08/13/20 00:27 37.9 C H 94 H 100/45 L 92 08/13/20 00:00 86 118/48 L 08/12/20 23:57 37.9 C H 90 105/45 L 92 08/12/20 23:31 86 36 H 91 08/12/20 23:26 37.9 C H 86 91/43 L 93 08/12/20 22:57 37.9 C H 86 96/40 L 94 08/12/20 22:34 86 08/12/20 22:27 38.0 C H 79 96/42 L 94 08/12/20 21:56 38.0 C H 85 100/46 L 90 08/12/20 21:26 38.0 C H 85 95/44 L 91 Laboratory Results 08/13/20 08/13/20 08/13/20 Range/Units 11:26 06:27 06:27 WBC 13.08 H (4.8-10.8) K/uL RBC 3.75 L (4.2-5.4) M/uL Hgb 10.9 L (12.0-16.0) g/dL POC Hgb (12.0-16.0) g/dl Hct 35.3 L (37-47) % POC Hct (37-47) % MCV 94.1 (80-100) fL MCH 29.1 (25-34) pg MCHC 30.9 L (32-36) g/dL RDW Std Deviation 53.1 H (36.4-46.3) fL RDW Coeff of Jason 15.5 H (11.5-14.5) % Plt Count 183 (130-400) K/uL MPV 10.1 (7.4-10.4) fL Immature Gran % (Auto) 5.0 % Neut % (Auto) 87.4 % Lymph % (Auto) 4.6 % Linn % (Auto) 2.5 % Eos % (Auto) 0.3 % Baso % (Auto) 0.2 % Neut # (Auto) 11.42 H (1.4-6.5) K/uL Lymph # (Auto) 0.60 L (1.2-3.4) K/uL Linn # (Auto) 0.33 (0.11-0.59) K/uL Eos # (Auto) 0.04 (0-0.5) K/uL Baso # (Auto) 0.03 (0-0.2) K/uL Immature Gran # (Auto) 0.66 H (0.00-0.02) K/uL Absolute Nucleated RBC 0.04 H (0-0) K/uL Nucleated RBC % (auto) 0.3 % Sample Site POC pH (7.35-7.45) POC pCO2 (35-46) mmHg POC pO2 (80-95) mmHg POC HCO3 (19-24) harman/L POC Total CO2 (24-31) mmol/L POC Base Excess (-9-1.8) harman/L ABG pH (Temp Correct) (7.35-7.45) ABG pCO2 (Temp Corrct (35-46) mmHg POC ABG pO2 at Pt Temp POC ABG O2 Sat (90-95) % John Test O2 Delivery Device POC O2 Rate Minute Ventilation POC FiO2 % Tidal Volume PEEP POC Sodium (135-144) mmol/L Sodium 146 H (136-145) mmol/L POC Potassium (3.3-5.0) mmol/L Potassium 4.2 (3.5-5.1) mmol/L Chloride 113 H (98-107) mmol/L Carbon Dioxide 27 (21-32) mmol/L Anion Gap 5.0 (3-11) BUN 33 H (7-18) mg/dl Creatinine 0.84 (0.6-1.2) mg/dl Est Cr Clr Drug Dosing 72.6 ml/min Est GFR ( Amer) 86.9 Est GFR (Non-Af Amer) 75.0 BUN/Creatinine Ratio 39.2 H (10-20) Glucose 151 H (70-99) mg/dl POC Glucose 136 H (70-99) mg/dl Calcium 8.7 (8.5-10.1) mg/dl Phosphorus 2.8 D (2.5-4.9) mg/dl Magnesium 2.5 H (1.8-2.4) mg/dl Total Bilirubin 0.4 (0.2-1) mg/dl AST 30 (15-37) U/L ALT 28 (12-78) U/L Alkaline Phosphatase 117 (45-117) U/L Total Protein 5.5 L (6.4-8.2) gm/dl Albumin 1.7 L (3.4-5.0) gm/dl Globulin 3.8 (2.5-4.0) gm/dl Albumin/Globulin Ratio 0.4 L (0.9-2) Nasal Screen MRSA (PCR) (Negative) 08/13/20 08/13/20 08/12/20 Range/Units 05:38 05:07 Unknown WBC (4.8-10.8) K/uL RBC (4.2-5.4) M/uL Hgb (12.0-16.0) g/dL POC Hgb 10.9 L (12.0-16.0) g/dl Hct (37-47) % POC Hct 32 L (37-47) % MCV (80-100) fL MCH (25-34) pg MCHC (32-36) g/dL RDW Std Deviation (36.4-46.3) fL RDW Coeff of Jason (11.5-14.5) % Plt Count (130-400) K/uL MPV (7.4-10.4) fL Immature Gran % (Auto) % Neut % (Auto) % Lymph % (Auto) % Linn % (Auto) % Eos % (Auto) % Baso % (Auto) % Neut # (Auto) (1.4-6.5) K/uL Lymph # (Auto) (1.2-3.4) K/uL Linn # (Auto) (0.11-0.59) K/uL Eos # (Auto) (0-0.5) K/uL Baso # (Auto) (0-0.2) K/uL Immature Gran # (Auto) (0.00-0.02) K/uL Absolute Nucleated RBC (0-0) K/uL Nucleated RBC % (auto) % Sample Site Art Line POC pH 7.28 L (7.35-7.45) POC pCO2 59 H (35-46) mmHg POC pO2 91 (80-95) mmHg POC HCO3 27 H (19-24) harman/L POC Total CO2 29 (24-31) mmol/L POC Base Excess 0.0 (-9-1.8) harman/L ABG pH (Temp Correct) 7.258 L (7.35-7.45) ABG pCO2 (Temp Corrct 62 H (35-46) mmHg POC ABG pO2 at Pt Temp 99 POC ABG O2 Sat 96.0 H (90-95) % John Test NA O2 Delivery Device Ventilator POC O2 Rate 36 Minute Ventilation 10.9 POC FiO2 60 % Tidal Volume 300 PEEP 18 POC Sodium 145 H (135-144) mmol/L Sodium (136-145) mmol/L POC Potassium 4.3 (3.3-5.0) mmol/L Potassium (3.5-5.1) mmol/L Chloride (98-107) mmol/L Carbon Dioxide (21-32) mmol/L Anion Gap (3-11) BUN (7-18) mg/dl Creatinine (0.6-1.2) mg/dl Est Cr Clr Drug Dosing ml/min Est GFR ( Amer) Est GFR (Non-Af Amer) BUN/Creatinine Ratio (10-20) Glucose (70-99) mg/dl POC Glucose 148 H (70-99) mg/dl Calcium (8.5-10.1) mg/dl Phosphorus (2.5-4.9) mg/dl Magnesium (1.8-2.4) mg/dl Total Bilirubin (0.2-1) mg/dl AST (15-37) U/L ALT (12-78) U/L Alkaline Phosphatase (45-117) U/L Total Protein (6.4-8.2) gm/dl Albumin (3.4-5.0) gm/dl Globulin (2.5-4.0) gm/dl Albumin/Globulin Ratio (0.9-2) Nasal Screen MRSA (PCR) Negative (Negative) 01/07/21 01/07/21 Range/Units 23:47 17:41 WBC (4.8-10.8) K/uL RBC (4.2-5.4) M/uL Hgb (12.0-16.0) g/dL POC Hgb (12.0-16.0) g/dl Hct (37-47) % POC Hct (37-47) % MCV (80-100) fL MCH (25-34) pg MCHC (32-36) g/dL RDW Std Deviation (36.4-46.3) fL RDW Coeff of Jason (11.5-14.5) % Plt Count (130-400) K/uL MPV (7.4-10.4) fL Immature Gran % (Auto) % Neut % (Auto) % Lymph % (Auto) % Linn % (Auto) % Eos % (Auto) % Baso % (Auto) % Neut # (Auto) (1.4-6.5) K/uL Lymph # (Auto) (1.2-3.4) K/uL Linn # (Auto) (0.11-0.59) K/uL Eos # (Auto) (0-0.5) K/uL Baso # (Auto) (0-0.2) K/uL Immature Gran # (Auto) (0.00-0.02) K/uL Absolute Nucleated RBC (0-0) K/uL Nucleated RBC % (auto) % Sample Site POC pH (7.35-7.45) POC pCO2 (35-46) mmHg POC pO2 (80-95) mmHg POC HCO3 (19-24) harman/L POC Total CO2 (24-31) mmol/L POC Base Excess (-9-1.8) harman/L ABG pH (Temp Correct) (7.35-7.45) ABG pCO2 (Temp Corrct (35-46) mmHg POC ABG pO2 at Pt Temp POC ABG O2 Sat (90-95) % John Test O2 Delivery Device POC O2 Rate Minute Ventilation POC FiO2 % Tidal Volume PEEP POC Sodium (135-144) mmol/L Sodium (136-145) mmol/L POC Potassium (3.3-5.0) mmol/L Potassium (3.5-5.1) mmol/L Chloride (98-107) mmol/L Carbon Dioxide (21-32) mmol/L Anion Gap (3-11) BUN (7-18) mg/dl Creatinine (0.6-1.2) mg/dl Est Cr Clr Drug Dosing ml/min Est GFR ( Amer) Est GFR (Non-Af Amer) BUN/Creatinine Ratio (10-20) Glucose (70-99) mg/dl POC Glucose 127 H 212 H (70-99) mg/dl Calcium (8.5-10.1) mg/dl Phosphorus (2.5-4.9) mg/dl Magnesium (1.8-2.4) mg/dl Total Bilirubin (0.2-1) mg/dl AST (15-37) U/L ALT (12-78) U/L Alkaline Phosphatase (45-117) U/L Total Protein (6.4-8.2) gm/dl Albumin (3.4-5.0) gm/dl Globulin (2.5-4.0) gm/dl Albumin/Globulin Ratio (0.9-2) Nasal Screen MRSA (PCR) (Negative) Coding Level of Care Code Critical Care 1st 30-74 mins Diagnoses Acute hypoxemic respiratory failure due to COVID-19 U07.1; J96.01 Mood disorder F39 DMII (diabetes mellitus, type 2) E11.9 Time Spent (min) 45
[2020-08-13] MEDS: PEPTAMEN INTENSE VHP 1.0 CAL 1,000 ML BAG GT SCH (12:05)
[2020-08-13] MEDS: SODIUM CHLORIDE 0.9% 10ML FLUSH IV SCH (12:17)
[2020-08-13] MEDS: REMDESIVIR 100 MG in SODIUM CHLORIDE 0.9% 230 ML IV SCH (12:17)
--- NOTE | 2020-08-13 14:50 | Pharmacy Report ---
Pharmacy Glycemic Short Note 2 - Date of Service August 13, 2020 - Glycemic Short BSG Results (Last 24 hours): 08/12/20 08/12/20 08/13/20 17:41 23:47 05:38 Glucose POC Glucose 212 H 127 H 148 H 08/13/20 08/13/20 06:27 11:26 Glucose 151 H POC Glucose 136 H OUTPATIENT ANTIDIABETIC REGIMEN: * Metformin 1gm PO BID * Sitagliptin 100mg daily * A1c = 7.7% 08/13/20 ASSESSMENT: 08/13: * Glycemic control acceptable over last 24 hrs, only 1 BSG greater than 200 * Only 18 units SQ insulin administered over last 24 hrs. Patient did not receive IV dexamethasone today. Tube feeds continue at "trickle" rate of 15cc/hr * Will continue Lantus BID per scale, allow for smaller doses until steroid resumed or tube feeds titrated upwards. Novolog will continue Q 6 hrs (rather than Q 4hrs) initially, with carb ratio to cover tube feeds. If BSGs begin to climb on this regimen we may need to transition to Q 4 hr regimen or switch to Regular insulin Q 6 hrs 08/12: * Type 2 diabetic admitted to ICU for COVID pna, ARDS * [facility] 6mg IV given this AM (but will be held tomorrow), tube feeds to begin as well today. Norepi has been weaned off. * BSGs running slightly above goal today, however acceptable. * Will continue basal/bolus SQ regimen. Lantus per "mild-moderate" stress scale due to downward trending BSGs yesterday following low dose Lantus while NPO despite steroid admin. Novolog will be given Q 6 hrs per "severe" stress dosing PLAN FOR INPATIENT GLYCEMIC CONTROL: * Hold outpatient oral diabetes medications * Basal insulin * Lantus SQ BID * 0 units if BSG less than 140 * 8 units if BSG 140-220 * 15 units if BSG above 220 * Bolus insulin * NovoLog per scale Q6hrs * Goal Range: Low 110 mg/dL - High 140 mg/dL * Correction Factor: 18 mg/dL/unit * Nutritional / Prandial insulin per carb ratio of 1 unit per 6 grams CHO consumed - please carbs in tube feeds PLAN FOR DISCHARGE: * to be determined
--- NOTE | 2020-08-13 15:55 | Hospitalist Progress Note ---
Date of Service August 13, 2020 Assessment & Plan (1) Severe sepsis: Secondary to covid pneumonia and is complicated by UTI, Resuscitated and remains hemodynamically stable Clinically stable and getting better gradually Remains critical but stable (2) Pneumonia due to COVID-19 virus: Cont Decadron, continue remdesivir with improvement in creatinine overnight. She is also on cefepime and doxycycline for possible superinfection with bacteria Remains stable but requiring high flow oxygen to maintain saturation Dexamethasone has been discontinued Continue with remdesivir Doxycycline has been discontinued due to interaction with sedation Continue with intravenous cefepime Repeat chest x-ray today shows improvement-we will continue current management (3) Acute respiratory failure: Requiring high flow via nasal cannula at max capacity and proning. She is a patient who may ultimately end up on the ventilator. Has been requiring high flow oxygen and doing proning and BiPAP at nighttime Will ask for pulmonary evaluation as the patient may need intubation down the line Remains intubated since last evening of 08/11/2020 Repeat chest x-ray did show improvement of pneumonia (4) UTI (urinary tract infection): She is covered empirically on broad-spectrum antibiotics. De-escalate per clinical improvement and based on culture results. (5) DMII (diabetes mellitus, type 2): Recent A1c reflects good control. She is currently at goal on basal bolus insulin, and is requiring more than normal in the setting of steroid use. (6) Mood disorder: Chronic, stable. Continue Abilify, venlafaxine, and Wellbutrin per home regimen. Has been getting Zyprexa as needed-on hold now (7) DVT prophylaxis: Lovenox Full code Disposition-continue PCU monitoring Admission and Anticipated Discharge Date Admission Date: August 09, 2020 Subjective He is requiring patient was seen and examined in Covid unit He was admitted with severe sepsis secondary to Covid pneumonia and complicated by UTI She still is requiring high flow oxygen to maintain saturation Feels a little better today 08/12/2020 The patient was seen and examined in Covid unit She has been intubated since last evening He remains stable and sedated 08/13/2020 Patient was seen and examined in Covid unit She is intubated and sedated with pressor support Review of Systems Review of Systems: Unobtainable due to endotracheal tube Physical Exam Physical Exam: Sedated on mechanical ventilator Constitutional: well developed, well nourished, + ill appearing and + obese Eyes: PERRL, conjunctivae normal, anicteric sclerae ENMT: external ear and nose normal, oropharynx normal Neck: trachea midline, no thyromegaly Respiratory: no respiratory distress Auscultation: + diminished lung sounds and + crackles (Bibasilar crackles) Cardiovascular: Rate/Rhythm: regular rate and regular rhythm Heart Sounds: no murmur Extremities: + edema (Trace to 1+ edema bilaterally) Gastrointestinal (Abdomen): Inspection/Auscultation: normal bowel sounds; abdomen not distended Percussion/Palpation: abdomen soft; abdomen nontender Lymphatic: no cervical or axillary lymphadenopathy Results & Data Results & Data ([facility]) Vital Signs (Past 12 Hours) Vital Signs Temp Pulse Resp BP Pulse Ox 08/13/20 14:00 38.4 C H 70 94 08/13/20 13:57 38.5 C H 71 100/49 L 93 08/13/20 13:45 38.5 C H 72 94 08/13/20 13:30 38.5 C H 71 94 08/13/20 13:27 38.5 C H 70 105/46 L 94 08/13/20 13:15 38.6 C H 71 94 08/13/20 13:00 38.6 C H 73 96 08/13/20 12:57 38.6 C H 72 121/66 96 08/13/20 12:45 38.7 C H 68 96 08/13/20 12:30 38.7 C H 73 93 08/13/20 12:27 38.7 C H 72 98/47 L 94 08/13/20 12:15 38.8 C H 75 94 08/13/20 12:00 38.8 C H 76 93 08/13/20 11:57 38.8 C H 76 91/41 L 93 08/13/20 11:45 38.8 C H 74 92 08/13/20 11:42 74 37 H 92 08/13/20 11:30 38.7 C H 78 93 08/13/20 11:27 38.7 C H 78 95/46 L 93 08/13/20 11:15 38.7 C H 79 93 08/13/20 11:00 38.7 C H 79 93 08/13/20 10:57 38.7 C H 79 91/43 L 93 08/13/20 10:45 38.7 C H 79 93 08/13/20 10:32 38.7 C H 78 94/44 L 93 08/13/20 10:30 38.7 C H 79 93 08/13/20 10:27 38.7 C H 79 84/49 L 93 08/13/20 10:15 38.7 C H 80 93 08/13/20 10:00 38.7 C H 82 92 08/13/20 09:57 38.7 C H 80 89/41 L 92 08/13/20 09:45 38.6 C H 81 91 08/13/20 09:30 38.6 C H 82 90 08/13/20 09:27 38.6 C H 81 102/43 L 90 08/13/20 09:00 38.5 C H 87 91 08/13/20 08:57 38.5 C H 86 93/41 L 91 08/13/20 08:30 38.4 C H 95 H 92 08/13/20 08:27 38.4 C H 93 H 106/43 L 92 08/13/20 08:15 38.4 C H 100 H 92 08/13/20 08:00 38.4 C H 101 H 90 08/13/20 07:57 38.4 C H 102 H 121/47 L 91 08/13/20 07:45 38.4 C H 102 H 91 08/13/20 07:37 104 H 36 H 92 08/13/20 07:30 38.4 C H 101 H 92 08/13/20 07:27 38.4 C H 101 H 108/46 L 92 08/13/20 07:15 38.3 C H 97 H 92 08/13/20 07:00 38.3 C H 99 H 92 08/13/20 06:57 38.3 C H 102 H 106/46 L 92 08/13/20 06:50 38.3 C H 99 H 91 08/13/20 06:30 38.3 C H 100 H 91 08/13/20 06:27 38.3 C H 102 H 96/48 L 91 08/13/20 06:00 38.2 C H 98 H 91 08/13/20 05:57 38.2 C H 99 H 102/45 L 91 08/13/20 05:30 38.2 C H 97 H 91 08/13/20 05:27 38.2 C H 98 H 98/42 L 90 08/13/20 05:00 38.3 C H 97 H 91 08/13/20 04:57 38.3 C H 97 H 96/42 L 91 08/13/20 04:31 100 H 37 H 92 08/13/20 04:30 38.3 C H 99 H 92 08/13/20 04:27 38.3 C H 100 H 113/42 L 92 08/13/20 04:00 38.4 C H 98 H 135/56 L 92 08/13/20 03:57 38.4 C H 97 H 113/44 L 92 Laboratory Results Short CBC 08/13/20 Range/Units 06:27 WBC 13.08 H (4.8-10.8) K/uL Hgb 10.9 L (12.0-16.0) g/dL Hct 35.3 L (37-47) % Plt Count 183 (130-400) K/uL BMP 08/13/20 06:27 Sodium 146 H Potassium 4.2 Chloride 113 H Carbon Dioxide 27 BUN 33 H Creatinine 0.84 Glucose 151 H Calcium 8.7 Liver Function 08/13/20 Range/Units 06:27 Total Bilirubin 0.4 (0.2-1) mg/dl AST 30 (15-37) U/L ALT 28 (12-78) U/L Alkaline Phosphatase 117 (45-117) U/L Albumin 1.7 L (3.4-5.0) gm/dl Medications Administered Current Inpatient Medications Acetaminophen (Acetaminophen 325 Mg Tab) 325 mg PO Q6H PRN PRN Reason: Mild Pain Stop: 09/09/20 02:53 Aripiprazole (Aripiprazole 10 Mg Tab) 10 mg PO [facility] Stop: 09/09/20 08:59 Last Admin: 08/13/20 07:51 Dose: 10 mg Documented by: Ascorbic Acid (Ascorbic Acid 500 Mg Tab) 1,000 mg PO QAM [facility] Stop: 09/11/20 08:59 Last Admin: 08/13/20 07:54 Dose: 1,000 mg Documented by: Aspirin (Aspirin 81 Mg Chew) 81 mg PO BID [facility] Stop: 09/11/20 20:59 Last Admin: 08/13/20 08:11 Dose: 81 mg Documented by: Atenolol (Atenolol 25 Mg Tablet) 25 mg PO QAM [facility] Stop: 09/09/20 08:59 Last Admin: 08/13/20 08:12 Dose: 25 mg Documented by: Atorvastatin Calcium (Atorvastatin 20 Mg Tab) 20 mg PO HS [facility] Stop: 09/09/20 20:59 Last Admin: 08/12/20 19:27 Dose: 20 mg Documented by: Benzonatate (Benzonatate 100 Mg Capsule) 100 mg PO TID PRN PRN Reason: Cough Stop: 09/09/20 02:53 Last Admin: 08/10/20 08:45 Dose: 100 mg Documented by: Bupropion HCl (Bupropion Hcl 100 Mg Tablet) 100 mg PO Q8H [facility] Stop: 09/11/20 19:59 Last Admin: 08/13/20 10:46 Dose: 100 mg Documented by: Dextrose (Dextrose 50% 50 Ml Syringe) 25 - 50 ml IV UD PRN; Protocol PRN Reason: Hypoglycemia Protocol Stop: 09/09/20 02:53 Enoxaparin Sodium (Enoxaparin Inj 40 Mg/0.4 Ml Syr) 40 mg SQ QAM [facility] Stop: 09/10/20 08:59 Last Admin: 08/13/20 07:49 Dose: 40 mg Documented by: Famotidine (Famotidine 20 Mg Tab) 20 mg PO BID [facility] Stop: 09/09/20 08:59 Last Admin: 08/13/20 07:53 Dose: 20 mg Documented by: Fentanyl Citrate (Fentanyl Bolus From Bag) 50 mcg IV Q60M PRN PRN Reason: Pain or Agitation Stop: 08/25/20 21:22 Folic Acid (Folic Acid 1 Mg Tab) 1 mg PO QAM [facility] Stop: 09/09/20 08:59 Last Admin: 08/13/20 07:52 Dose: 1 mg Documented by: Glucagon (Glucagon For Inj 1 Mg Vial) 1 mg SQ UD PRN; Protocol PRN Reason: Hypoglycemia Protocol Stop: 09/09/20 02:53 Glucose (Glucose 10 Tabs/Tube) 4 - 8 tabs PO UD PRN; Protocol PRN Reason: Hypoglycemia Protocol Stop: 09/09/20 02:53 Glucose (Glucose 40% Gel 15 Gm Tube) 15 - 30 gm PO UD PRN; Protocol PRN Reason: Hypoglycemia Protocol Stop: 09/09/20 02:53 Heparin Sodium (Beef Lung) (Heparin 10 Unit/Ml 5 Ml Flush) 5 ml FLUSH PRN PRN PRN Reason: Flush Stop: 09/11/20 22:46 Remdesivir 100 mg/ Sodium (Chloride) 250 mls @ 250 mls/hr IV Q24H [facility]; Protocol Stop: 08/14/20 12:59 Last Infusion: 08/13/20 13:51 Dose: Infused Documented by: Cefepime HCl 2,000 mg/ Syringe 20 mls @ 5 mls/min IV Q8H [facility] Stop: 08/16/20 00:00 Last Admin: 08/13/20 07:32 Dose: 5 mls/min Documented by: Cisatracurium Besylate 40 mg/ (Sodium Chloride) 100 mls @ 20.475 mls/hr IV .Q4H54M [facility]; Protocol Stop: 09/10/20 21:29 Last Admin: 08/13/20 13:52 Dose: 3 mcg/kg/min, 20.5 mls/hr Documented by: Midazolam HCl (Versed) 125 mg in 250 mls @ 11 mls/hr IV .[id number] [facility]; Protocol Stop: 09/10/20 21:29 Last Titration: 08/13/20 07:44 Dose: 5.5 mg/hr, 11 mls/hr Documented by: Fentanyl Citrate (Fentanyl Drip) 1,250 mcg in 250 mls @ 30 mls/hr IV .Q8H20M [facility]; Protocol Stop: 08/25/20 21:29 Last Titration: 08/13/20 07:46 Dose: 150 mcg/hr, 30 mls/hr Documented by: Acetaminophen (Ofirmev) 1,000 mg in 100 mls @ 400 mls/hr IV Q8H PRN PRN Reason: Fever Stop: 08/14/20 21:55 Last Infusion: 08/13/20 12:47 Dose: Infused Documented by: Dexamethasone Sodium Phosphate (6 mg/ Syringe) 1.5 mls @ 1 mls/min IV DAILY [facility] Stop: 08/21/20 08:59 Last Admin: 08/12/20 08:20 Dose: 1 mls/min Documented by: Norepinephrine Bitartrate (Levophed/D5w) 8 mg in 508 mls @ 0 mls/hr IV .Q0M [facility]; Protocol Stop: 09/11/20 04:59 Last Titration: 08/13/20 15:27 Dose: 0 mcg/kg/min, 0 mls/hr Documented by: Insulin Aspart (Insulin Aspart 100 Units/Ml 3 Ml Pen) 0 units SC Q6 [facility] Stop: 09/09/20 02:53 Last Admin: 08/13/20 12:12 Dose: 1 units Documented by: Insulin Glargine (Insulin Glargine Solostar 100 Units/Ml 3 Ml Pen) 0 units SC Q12H [facility]; Protocol Stop: 09/13/20 00:00 Lamotrigine (Lamotrigine 100 Mg Tab) 150 mg PO HS [facility] Stop: 09/09/20 20:59 Last Admin: 08/12/20 19:28 Dose: 150 mg Documented by: Levalbuterol HCl (Levalbuterol Tartrate 15 Gm Hfa.Aer.Ad) 2 puffs INH Q6H PRN PRN Reason: Shortness Of Breath Or Wheezing Stop: 09/09/20 02:53 Midazolam HCl (Midazolam Bolus From Bag) 2 mg IV Q60M PRN PRN Reason: Sedation Stop: 09/10/20 21:22 Miscellaneous (Carbohydrates For Hypoglycemia ) 15 - 30 gm PO UD PRN PRN Reason: Hypoglycemia Protocol Stop: 09/09/20 02:53 Miscellaneous (Icu Electrolyte Replacement Protocol) 1 ea N/A BID@06,18 [facility]; Protocol Stop: 08/20/20 17:59 Miscellaneous Information (Cefepime Consult Active) 1 ea N/A UD PRN PRN Reason: Consult Stop: 09/09/20 02:53 Miscellaneous Information (Pharmacy Glycemic Mgmt Consult) 1 ea N/A UD PRN PRN Reason: Consult Stop: 09/11/20 12:18 Multi-Ingredient Cream (Artificial Tears Op Oint 3.5 Gm Tube) 1 appln OP Q4 [facility] Stop: 09/11/20 11:59 Last Admin: 08/13/20 10:36 Dose: 1 appln Documented by: Multivitamins/Minerals (Multi Vit W/Minerals Liquid 15 Ml Udp) 15 ml PO QAM [facility] Stop: 09/12/20 08:59 Last Admin: 08/13/20 07:47 Dose: 15 ml Documented by: Nutritional Formula (Peptamen Intense Vhp 1.0 Sage 1,000 Ml Bag) 0 ml GT CONT [facility]; Protocol Stop: 09/11/20 12:59 Last Admin: 08/13/20 12:05 Dose: 15 ml Documented by: Sodium Chloride (Sodium Chloride 0.9% 10ml Flush) 30 ml IV Q24H [facility] Stop: 08/14/20 12:01 Last Admin: 08/13/20 12:17 Dose: 30 ml Documented by: Thiamine HCl (Thiamine Hcl 100 Mg Tab) 100 mg PO [facility] Stop: 09/11/20 08:59 Last Admin: 08/13/20 07:55 Dose: 100 mg Documented by: Venlafaxine HCl (Venlafaxine Hcl 50 Mg Tab) 100 mg PO Q8H [facility] Stop: 09/11/20 19:59 Last Admin: 08/13/20 10:45 Dose: 100 mg Documented by: Zinc Sulfate (Zinc Sulfate 220 Mg Capsule) 220 mg PO [facility] Stop: 09/11/20 08:59 Last Admin: 08/13/20 07:56 Dose: 220 mg Documented by:
[2020-08-13] MEDS: ICU ELECTROLYTE REPLACEMENT PROTOCOL SCH (18:31)
[2020-08-13] MEDS: MIDAZOLAM HCL 125 MG/250 ML BAG IV SCH ×2 (19:52→22:51)
[2020-08-13] MEDS: lamoTRIgine 100 MG TAB PO SCH (20:03)
[2020-08-13] MEDS: ATORVASTATIN 20 MG TAB PO SCH (20:03)
--- NOTE | 2020-08-13 22:35 | Communication Note ---
Date of Service: August 13, 2020 Procedure: Pronation Maneuver Attending: Dr. Gordon APC: Zac Baker PA-C Indication: Requiring lung recruitment intervention in the setting of advanced ARDS with poor lung compliance and oxygenation on standard ventilator settings. Patient requiring pronation in the setting of advanced ARDS per imaging, ventilator requirements, and calculated P:F ratio. Appropriate staff was assembled including myself, Respiratory Therapy, and Nursing Staff. A time-out was completed verifying correct patient, time from recent pronation/supination, current ventilator settings, review of any prior issues during pronation/supination maneuvers. Patient was fully undressed as to be able to view all current IV sites, central venous access sites, arterial lines, endotracheal tube, Tejada catheter, etc. After properly identifying/securing all lines, tubes, etc., the patient was papoosed using flat sheets. On my count, the patient was slid to the edge of the bed. After reevaluating all lines, tubes, etc., the patient was then placed on their side allowing for RT to maintain control of ET tube and ready for completion of Pronation maneuver. Final check of all lines, tubes, etc. was completed by myself and nursing staff. Blood pressure, heart rhythm, and oxygen saturations were monitored for several minutes s/p maneuver. Discussion was held with patients RN and RT regarding ongoing management. Patient tolerated maneuver well. No immediate complications were noted. TIME PRONE: 2200 I have personally spent 25 minutes of critical care time in the direct management of this patient. This is a life/limb threatening event. This includes time spent evaluating patient, direct bedside care, chart review, placing orders, interpretation of diagnostic studies, discussion with consultants, patient, and family members, as well as other required patient management activities. This time is exclusive of all separately billable procedures, and teaching time and separate from and in addition to any other critical care service time. Coding Level of Care Code Critical Care ea addt'l 30 min Time Spent (min) 25
[2020-08-14] MEDS: CISATRACURIUM BESYLATE 40 MG in 0.9 % SODIUM CHLORIDE 80 ML IV SCH ×4 (02:47→15:31)
[2020-08-14] MEDS: fentaNYL DRIP 1,250 MCG/250 ML BAG IV SCH ×2 (02:47→15:20)
[2020-08-14] MEDS: VENLAFAXINE HCL 50 MG TAB PO SCH ×3 (02:47→21:32)
[2020-08-14] MEDS: ARTIFICIAL TEARS OP OINT 3.5 GM TUBE OP SCH ×5 (02:48→21:33)
[2020-08-14] MEDS: buPROPion HCl 100 MG TABLET PO SCH ×3 (02:48→21:32)
[2020-08-14 05:15] LABS: iSTAT Art Bld Gas pCO2 Correct 52 mmHg (35-46); iSTAT Art Bld Gas pH Corrected 7.317 (7.35-7.45); iSTAT Arterial Blood Gas HCO3 26 meg/L (19-24); iSTAT Arterial Blood Gas pCO2 49 mmHg (35-46); iSTAT Arterial Blood Gas pH 7.33 (7.35-7.45); iSTAT Arterial Blood Gas pO2 39 mmHg (80-95); iSTAT Arterial Blood Gas pO2 C 42; iSTAT Carbon Dioxide 28 mmol/L (24-31); iSTAT FiO2 30 %; iSTAT Hematocrit 33 % (37-47); iSTAT Hemoglobin 11.2 g/dl (12.0-16.0); iSTAT Potassium 4.5 mmol/L (3.3-5.0); iSTAT Site Art Line; iSTAT Sodium 145 mmol/L (135-144)
[2020-08-14 05:15] LABS: iSTAT Art Bld Gas pCO2 Correct 55 mmHg (35-46); iSTAT Art Bld Gas pH Corrected 7.298 (7.35-7.45); iSTAT Arterial Blood Gas HCO3 27 meg/L (19-24); iSTAT Arterial Blood Gas pCO2 52 mmHg (35-46); iSTAT Arterial Blood Gas pH 7.32 (7.35-7.45); iSTAT Arterial Blood Gas pO2 65 mmHg (80-95); iSTAT Arterial Blood Gas pO2 C 71; iSTAT Carbon Dioxide 28 mmol/L (24-31); iSTAT FiO2 50 %; iSTAT Hematocrit 33 % (37-47); iSTAT Hemoglobin 11.2 g/dl (12.0-16.0); iSTAT Potassium 4.5 mmol/L (3.3-5.0); iSTAT Site Art Line; iSTAT Sodium 146 mmol/L (135-144)
[2020-08-14] MEDS: INSULIN ASPART 100 UNITS/ML 3 ML PEN SC SCH ×3 (05:46→18:21)
[2020-08-14] MEDS: DEXTROSE 50% 50 ML SYRINGE IV PRN ×4 (05:49→18:13)
[2020-08-14 06:52] LABS: Hematocrit (blood only) 34.4 % (37-47); Hemoglobin 10.4 g/dL (12.0-16.0); Mean Corpuscular Hemoglobin 28.8 pg (25-34); Mean Corpuscular Hgb Conc 30.2 g/dL (32-36); Mean Corpuscular Volume 95.3 fL (80-100); Mean Platelet Volume 10.4 fL (7.4-10.4); Nucleated RBC # (auto) 0.03 K/uL (0-0); Nucleated RBC % (auto) 0.2 %; Platelet Count 190 K/uL (130-400); RDW Coefficient of Variation 15.8 % (11.5-14.5); RDW Standard Deviation 55.5 fL (36.4-46.3); Red Blood Count 3.61 M/uL (4.2-5.4); White Blood Count 13.82 K/uL (4.8-10.8)
[2020-08-14 07:18] LABS: Basophils # (auto) 0.04 K/uL (0-0.2); Basophils % (auto) 0.3 %; Echinocytes 1+; Eosinophils # (auto) 0.34 K/uL (0-0.5); Eosinophils % (auto) 2.5 %; Immature Granulocytes # (auto) 1.07 K/uL (0.00-0.02); Immature Granulocytes % (auto) 7.7 %; Lymphocytes # (auto) 0.91 K/uL (1.2-3.4); Lymphocytes % (auto) 6.6 %; Monocytes # (auto) 0.39 K/uL (0.11-0.59); Monocytes % (auto) 2.8 %; Neutrophils # (auto) 11.07 K/uL (1.4-6.5); Neutrophils % (auto) 80.1 %
[2020-08-14] MEDS: ENOXAPARIN INJ 40 MG/0.4 ML SYR SQ SCH (07:23)
[2020-08-14] MEDS: MULTI VIT W/MINERALS LIQUID 15 ML UDP PO SCH (07:23)
[2020-08-14 07:24] LABS: BUN Creatinine Ratio 41.6 (10-20); Calcium 8.6 mg/dl (8.5-10.1); Est GFR (African American) 78.9; Est GFR (Non-African American) 68.1; Magnesium 2.4 mg/dl (1.8-2.4); Phosphorus 2.7 mg/dl (2.5-4.9); Potassium 4.2 mmol/L (3.5-5.1)
[2020-08-14] MEDS: ASCORBIC ACID 500 MG TAB PO SCH (07:24)
[2020-08-14] MEDS: THIAMINE HCL 100 MG TAB PO SCH (07:26)
[2020-08-14] MEDS: FOLIC ACID 1 MG TAB PO SCH (07:26)
[2020-08-14] MEDS: ATENOLOL 25 MG TABLET PO SCH (07:26)
[2020-08-14] MEDS: ARIPiprazole 10 MG TAB PO SCH (07:26)
[2020-08-14] MEDS: ZINC SULFATE 220 MG CAPSULE PO SCH (07:27)
[2020-08-14] MEDS: FAMOTIDINE 20 MG TAB PO SCH ×2 (07:29→21:33)
[2020-08-14] MEDS: CEFEPIME 2,000 MG in SYRINGE 0 ML IV SCH ×2 (07:32→15:20)
[2020-08-14] MEDS: ACETAMINOPHEN 1,000 MG/100 ML VIAL IV PRN (07:36)
[2020-08-14] MEDS: ASPIRIN 81 MG CHEW PO SCH ×2 (07:36→21:37)
[2020-08-14 07:42] LABS: Beta-Hydroxybutyrate 3.62 mg/dl (0.2-2.81)
[2020-08-14] MEDS: ICU ELECTROLYTE REPLACEMENT PROTOCOL SCH ×2 (08:13→17:46)
[2020-08-14] MEDS: PEPTAMEN INTENSE VHP 1.0 CAL 1,000 ML BAG GT SCH ×2 (09:18→16:04)
--- NOTE | 2020-08-14 10:08 | Critical Care Progress Note ---
Date of Service August 14, 2020 Assessment & Plan (1) Acute hypoxemic respiratory failure due to COVID-19: Reason Critically Ill: 59-year-old female with acute hypoxic respiratory failure secondary to Covid pneumonia and obesity BMI 39.4 PLAN: Neuro: Neuromuscular blockade -Holding steroids while on neuromuscular blockade -Finishing third day of neuromuscular blockade no additional neuromuscular blockers Mood disorder -Effexor adjustment Resp: Acute hypoxic respiratory failure secondary to COVID-19 -ARDSnet high PEEP low FiO2 with pronation therapy -Patient's compliance is not improved during the 3 days of pronation therapy -No additional fluid at this time consider diuresis -Hypoxic during induction of intubation, concern for possible anoxic injury -Continue remdesivir COVID-19 positivity date per ED note indicate 1 week prior to presentation to ED (08/03/2020 per the patient's ) Covid day: 12 CV: Hypotension: Resolved Fluids/Renal: Electrolyte protocol ID: Cefepime for superimposed bacterial infection -Day 5 of 7 GI/Nutrition: Can increase tube feeds to goal tube feeds Heme: Mild anemia DVT prophylaxis: Lovenox 40 twice daily for Covid associated DVT prophylaxis Endocrine: ICU hyperglycemia protocol Vascular access: Left subclavian placed 1/6 right arterial line placed /6 Code Status: Full Disposition: ICU Patient was discussed in multidisciplinary rounds. Patient's called to nursing staff and indicated he would prefer patient be DNR/DNI in event of cardiac arrest. I have subsequently updated her CODE STATUS. Attempted to contact the patient's left message for him to call hospital for update as needed. (2) Mood disorder: (3) DMII (diabetes mellitus, type 2): Admission and Anticipated Discharge Date Admission Date: August 09, 2020 Supervising Physician Co-Signing Physician Notes I have personally spent 45 minutes of critical care time in the direct management of this patient. This is a life/limb threatening event. This includes time spent evaluating patient, direct bedside care, chart review, placing orders, interpretation of diagnostic studies, discussion with consultants, patient, and/or family members regarding treatment decisions, as we ll as other required patient management activities. This time is exclusive of all separately billable procedures, and teaching time and separate from and in addition to any other critical care service time. Subjective No overnight events, patient was in the prone position when I initially evaluated the patient on I participated in the pronation maneuver to return her to the supine position. Review of Systems Review of Systems: Unobtainable due to endotracheal tube Physical Exam Physical Exam: General: GCS 3 TP, in prone position Skin: Warm, dry, Head: Atraumatic Ears, nose, mouth and throat: airway obscured by endotracheal tube Cardiovascular: Normal peripheral perfusion Respiratory: Ventilator settings reviewed Gastrointestinal: Non distended Musculoskeletal: No deformity Results & Data Results & Data ([facility]) Vital Signs (Past 12 Hours) Vital Signs Temp Pulse Resp BP Pulse Ox 08/14/20 09:30 38.6 C H 89 92 08/14/20 09:27 38.6 C H 89 148/53 H 92 08/14/20 09:00 38.6 C H 89 92 08/14/20 08:57 38.6 C H 89 150/53 H 92 08/14/20 08:30 38.6 C H 90 91 08/14/20 08:27 38.6 C H 90 152/56 H 91 08/14/20 08:00 38.7 C H 77 154/53 H 91 08/14/20 07:57 38.7 C H 91 H 160/56 H 91 08/14/20 07:30 38.7 C H 93 H 37 H 87 L 08/14/20 07:27 38.7 C H 92 H 165/61 H 86 L 08/14/20 07:00 38.7 C H 93 H 92 08/14/20 06:57 38.6 C H 92 H 166/56 H 88 L 08/14/20 06:30 38.5 C H 90 89 L 08/14/20 06:27 38.5 C H 90 158/61 H 89 L 08/14/20 06:00 38.5 C H 88 88 L 08/14/20 05:57 38.5 C H 88 142/51 H 88 L 08/14/20 05:52 38.5 C H 93 H 127/54 L 85 L 08/14/20 05:30 38.5 C H 87 92 08/14/20 05:27 38.4 C H 87 115/63 92 08/14/20 05:00 38.3 C H 83 93 08/14/20 04:57 38.3 C H 83 105/61 93 08/14/20 04:43 38.3 C H 81 103/64 92 08/14/20 04:38 38.2 C H 80 115/59 L 89 L 08/14/20 04:30 38.2 C H 78 08/14/20 04:27 38.2 C H 84 08/14/20 04:00 38.1 C H 83 89 L 08/14/20 03:57 38.1 C H 83 118/55 L 08/14/20 03:43 83 36 H 96 08/14/20 03:30 38.1 C H 80 98 08/14/20 03:27 38.1 C H 80 108/57 L 08/14/20 03:00 38.1 C H 79 99 08/14/20 02:57 38.1 C H 79 112/52 L 99 08/14/20 02:30 38.2 C H 79 99 08/14/20 02:27 38.2 C H 80 103/52 L 98 08/14/20 02:00 38.2 C H 81 98 08/14/20 01:57 38.2 C H 81 108/57 L 98 08/14/20 01:30 38.3 C H 81 98 08/14/20 01:27 38.3 C H 80 109/54 L 98 08/14/20 01:00 38.3 C H 80 98 08/14/20 00:57 38.3 C H 80 108/57 L 98 08/14/20 00:30 38.3 C H 80 97 08/14/20 00:27 38.3 C H 81 107/52 L 97 08/14/20 00:00 38.4 C H 80 116/57 L 97 08/13/20 23:57 38.4 C H 80 102/49 L 97 08/13/20 23:30 38.4 C H 79 95 08/13/20 23:27 38.4 C H 79 105/51 L 95 08/13/20 23:00 38.5 C H 77 91 08/13/20 22:57 38.5 C H 77 101/49 L 91 08/13/20 22:56 76 36 H 91 08/13/20 22:46 38.5 C H 75 90/44 L 92 08/13/20 22:30 38.6 C H 76 93 Laboratory Results 08/14/20 08/14/20 08/14/20 Range/Units 06:25 06:25 06:23 WBC (4.8-10.8) K/uL RBC (4.2-5.4) M/uL Hgb (12.0-16.0) g/dL POC Hgb (12.0-16.0) g/dl Hct (37-47) % POC Hct (37-47) % MCV (80-100) fL MCH (25-34) pg MCHC (32-36) g/dL RDW Std Deviation (36.4-46.3) fL RDW Coeff of Jason (11.5-14.5) % Plt Count (130-400) K/uL MPV (7.4-10.4) fL Immature Gran % (Auto) % Neut % (Auto) % Lymph % (Auto) % [place] % (Auto) % Eos % (Auto) % Baso % (Auto) % Neut # (Auto) (1.4-6.5) K/uL Lymph # (Auto) (1.2-3.4) K/uL [place] # (Auto) (0.11-0.59) K/uL Eos # (Auto) (0-0.5) K/uL Baso # (Auto) (0-0.2) K/uL Immature Gran # (Auto) (0.00-0.02) K/uL Absolute Nucleated RBC (0-0) K/uL Nucleated RBC % (auto) % Echinocytes Sample Site POC pH (7.35-7.45) POC pCO2 (35-46) mmHg POC pO2 (80-95) mmHg POC HCO3 (19-24) harman/L POC Total CO2 (24-31) mmol/L POC Base Excess (-9-1.8) harman/L ABG pH (Temp Correct) (7.35-7.45) ABG pCO2 (Temp Corrct (35-46) mmHg POC ABG pO2 at Pt Temp POC ABG O2 Sat (90-95) % John Test O2 Delivery Device POC O2 Rate Minute Ventilation POC FiO2 % Tidal Volume PEEP POC Sodium (135-144) mmol/L Sodium (136-145) mmol/L POC Potassium (3.3-5.0) mmol/L Potassium (3.5-5.1) mmol/L Chloride (98-107) mmol/L Carbon Dioxide (21-32) mmol/L Anion Gap (3-11) BUN (7-18) mg/dl Creatinine (0.6-1.2) mg/dl Est Cr Clr Drug Dosing ml/min Est GFR ( Amer) Est GFR (Non-Af Amer) BUN/Creatinine Ratio (10-20) Glucose (70-99) mg/dl POC Glucose 114 H 244 H (70-99) mg/dl POC Glucose (other) 266 H (70-99) mg/dl Calcium (8.5-10.1) mg/dl Phosphorus (2.5-4.9) mg/dl Magnesium (1.8-2.4) mg/dl Beta-Hydroxybutyric Acd (0.2-2.81) mg/dl 08/14/20 08/14/20 08/14/20 Range/Units 06:11 06:11 06:04 WBC 13.82 H (4.8-10.8) K/uL RBC 3.61 L (4.2-5.4) M/uL Hgb 10.4 L (12.0-16.0) g/dL POC Hgb (12.0-16.0) g/dl Hct 34.4 L (37-47) % POC Hct (37-47) % MCV 95.3 (80-100) fL MCH 28.8 (25-34) pg MCHC 30.2 L (32-36) g/dL RDW Std Deviation 55.5 H (36.4-46.3) fL RDW Coeff of Jason 15.8 H (11.5-14.5) % Plt Count 190 (130-400) K/uL MPV 10.4 (7.4-10.4) fL Immature Gran % (Auto) 7.7 % Neut % (Auto) 80.1 % Lymph % (Auto) 6.6 % [place] % (Auto) 2.8 % Eos % (Auto) 2.5 % Baso % (Auto) 0.3 % Neut # (Auto) 11.07 H (1.4-6.5) K/uL Lymph # (Auto) 0.91 L (1.2-3.4) K/uL [place] # (Auto) 0.39 (0.11-0.59) K/uL Eos # (Auto) 0.34 (0-0.5) K/uL Baso # (Auto) 0.04 (0-0.2) K/uL Immature Gran # (Auto) 1.07 H (0.00-0.02) K/uL Absolute Nucleated RBC 0.03 H (0-0) K/uL Nucleated RBC % (auto) 0.2 % Echinocytes 1+ Sample Site POC pH (7.35-7.45) POC pCO2 (35-46) mmHg POC pO2 (80-95) mmHg POC HCO3 (19-24) harman/L POC Total CO2 (24-31) mmol/L POC Base Excess (-9-1.8) harman/L ABG pH (Temp Correct) (7.35-7.45) ABG pCO2 (Temp Corrct (35-46) mmHg POC ABG pO2 at Pt Temp POC ABG O2 Sat (90-95) % John Test O2 Delivery Device POC O2 Rate Minute Ventilation POC FiO2 % Tidal Volume PEEP POC Sodium (135-144) mmol/L Sodium 145 (136-145) mmol/L POC Potassium (3.3-5.0) mmol/L Potassium 4.2 (3.5-5.1) mmol/L Chloride 114 H (98-107) mmol/L Carbon Dioxide 26 (21-32) mmol/L Anion Gap 5.0 (3-11) BUN 38 H (7-18) mg/dl Creatinine 0.91 (0.6-1.2) mg/dl Est Cr Clr Drug Dosing 68.0 ml/min Est GFR ( Amer) 78.9 Est GFR (Non-Af Amer) 68.1 BUN/Creatinine Ratio 41.6 H (10-20) Glucose 305 H* (70-99) mg/dl POC Glucose 45 L* (70-99) mg/dl POC Glucose (other) (70-99) mg/dl Calcium 8.6 (8.5-10.1) mg/dl Phosphorus 2.7 (2.5-4.9) mg/dl Magnesium 2.4 (1.8-2.4) mg/dl Beta-Hydroxybutyric Acd 3.62 H (0.2-2.81) mg/dl 08/14/20 08/14/20 08/14/20 Range/Units 06:03 05:45 05:44 WBC (4.8-10.8) K/uL RBC (4.2-5.4) M/uL Hgb (12.0-16.0) g/dL POC Hgb (12.0-16.0) g/dl Hct (37-47) % POC Hct (37-47) % MCV (80-100) fL MCH (25-34) pg MCHC (32-36) g/dL RDW Std Deviation (36.4-46.3) fL RDW Coeff of Jason (11.5-14.5) % Plt Count (130-400) K/uL MPV (7.4-10.4) fL Immature Gran % (Auto) % Neut % (Auto) % Lymph % (Auto) % [place] % (Auto) % Eos % (Auto) % Baso % (Auto) % Neut # (Auto) (1.4-6.5) K/uL Lymph # (Auto) (1.2-3.4) K/uL [place] # (Auto) (0.11-0.59) K/uL Eos # (Auto) (0-0.5) K/uL Baso # (Auto) (0-0.2) K/uL Immature Gran # (Auto) (0.00-0.02) K/uL Absolute Nucleated RBC (0-0) K/uL Nucleated RBC % (auto) % Echinocytes Sample Site POC pH (7.35-7.45) POC pCO2 (35-46) mmHg POC pO2 (80-95) mmHg POC HCO3 (19-24) harman/L POC Total CO2 (24-31) mmol/L POC Base Excess (-9-1.8) harman/L ABG pH (Temp Correct) (7.35-7.45) ABG pCO2 (Temp Corrct (35-46) mmHg POC ABG pO2 at Pt Temp POC ABG O2 Sat (90-95) % John Test O2 Delivery Device POC O2 Rate Minute Ventilation POC FiO2 % Tidal Volume PEEP POC Sodium (135-144) mmol/L Sodium (136-145) mmol/L POC Potassium (3.3-5.0) mmol/L Potassium (3.5-5.1) mmol/L Chloride (98-107) mmol/L Carbon Dioxide (21-32) mmol/L Anion Gap (3-11) BUN (7-18) mg/dl Creatinine (0.6-1.2) mg/dl Est Cr Clr Drug Dosing ml/min Est GFR ( Amer) Est GFR (Non-Af Amer) BUN/Creatinine Ratio (10-20) Glucose (70-99) mg/dl POC Glucose 48 L* 61 L* 55 L* (70-99) mg/dl POC Glucose (other) (70-99) mg/dl Calcium (8.5-10.1) mg/dl Phosphorus (2.5-4.9) mg/dl Magnesium (1.8-2.4) mg/dl Beta-Hydroxybutyric Acd (0.2-2.81) mg/dl 08/14/20 08/14/20 08/13/20 Range/Units 05:01 04:29 23:41 WBC (4.8-10.8) K/uL RBC (4.2-5.4) M/uL Hgb (12.0-16.0) g/dL POC Hgb 11.2 L 11.2 L (12.0-16.0) g/dl Hct (37-47) % POC Hct 33 L 33 L (37-47) % MCV (80-100) fL MCH (25-34) pg MCHC (32-36) g/dL RDW Std Deviation (36.4-46.3) fL RDW Coeff of Jason (11.5-14.5) % Plt Count (130-400) K/uL MPV (7.4-10.4) fL Immature Gran % (Auto) % Neut % (Auto) % Lymph % (Auto) % [place] % (Auto) % Eos % (Auto) % Baso % (Auto) % Neut # (Auto) (1.4-6.5) K/uL Lymph # (Auto) (1.2-3.4) K/uL [place] # (Auto) (0.11-0.59) K/uL Eos # (Auto) (0-0.5) K/uL Baso # (Auto) (0-0.2) K/uL Immature Gran # (Auto) (0.00-0.02) K/uL Absolute Nucleated RBC (0-0) K/uL Nucleated RBC % (auto) % Echinocytes Sample Site Art Line Art Line POC pH 7.32 L 7.33 L (7.35-7.45) POC pCO2 52 H 49 H (35-46) mmHg POC pO2 65 L 39 L (80-95) mmHg POC HCO3 27 H 26 H (19-24) harman/L POC Total CO2 28 28 (24-31) mmol/L POC Base Excess 0.0 0.0 (-9-1.8) harman/L ABG pH (Temp Correct) 7.298 L 7.317 L (7.35-7.45) ABG pCO2 (Temp Corrct 55 H 52 H (35-46) mmHg POC ABG pO2 at Pt Temp 71 42 POC ABG O2 Sat 90.0 69.0 L (90-95) % John Test NA NA O2 Delivery Device Ventilator Ventilator POC O2 Rate 36 36 Minute Ventilation 10.9 11 POC FiO2 50 30 % Tidal Volume 300 300 PEEP 16 12 POC Sodium 146 H 145 H (135-144) mmol/L Sodium (136-145) mmol/L POC Potassium 4.5 4.5 (3.3-5.0) mmol/L Potassium (3.5-5.1) mmol/L Chloride (98-107) mmol/L Carbon Dioxide (21-32) mmol/L Anion Gap (3-11) BUN (7-18) mg/dl Creatinine (0.6-1.2) mg/dl Est Cr Clr Drug Dosing ml/min Est GFR ( Amer) Est GFR (Non-Af Amer) BUN/Creatinine Ratio (10-20) Glucose (70-99) mg/dl POC Glucose 131 H (70-99) mg/dl POC Glucose (other) (70-99) mg/dl Calcium (8.5-10.1) mg/dl Phosphorus (2.5-4.9) mg/dl Magnesium (1.8-2.4) mg/dl Beta-Hydroxybutyric Acd (0.2-2.81) mg/dl 08/13/20 08/13/20 Range/Units 17:41 11:26 WBC (4.8-10.8) K/uL RBC (4.2-5.4) M/uL Hgb (12.0-16.0) g/dL POC Hgb (12.0-16.0) g/dl Hct (37-47) % POC Hct (37-47) % MCV (80-100) fL MCH (25-34) pg MCHC (32-36) g/dL RDW Std Deviation (36.4-46.3) fL RDW Coeff of Jason (11.5-14.5) % Plt Count (130-400) K/uL MPV (7.4-10.4) fL Immature Gran % (Auto) % Neut % (Auto) % Lymph % (Auto) % [place] % (Auto) % Eos % (Auto) % Baso % (Auto) % Neut # (Auto) (1.4-6.5) K/uL Lymph # (Auto) (1.2-3.4) K/uL [place] # (Auto) (0.11-0.59) K/uL Eos # (Auto) (0-0.5) K/uL Baso # (Auto) (0-0.2) K/uL Immature Gran # (Auto) (0.00-0.02) K/uL Absolute Nucleated RBC (0-0) K/uL Nucleated RBC % (auto) % Echinocytes Sample Site POC pH (7.35-7.45) POC pCO2 (35-46) mmHg POC pO2 (80-95) mmHg POC HCO3 (19-24) harman/L POC Total CO2 (24-31) mmol/L POC Base Excess (-9-1.8) harman/L ABG pH (Temp Correct) (7.35-7.45) ABG pCO2 (Temp Corrct (35-46) mmHg POC ABG pO2 at Pt Temp POC ABG O2 Sat (90-95) % John Test O2 Delivery Device POC O2 Rate Minute Ventilation POC FiO2 % Tidal Volume PEEP POC Sodium (135-144) mmol/L Sodium (136-145) mmol/L POC Potassium (3.3-5.0) mmol/L Potassium (3.5-5.1) mmol/L Chloride (98-107) mmol/L Carbon Dioxide (21-32) mmol/L Anion Gap (3-11) BUN (7-18) mg/dl Creatinine (0.6-1.2) mg/dl Est Cr Clr Drug Dosing ml/min Est GFR ( Amer) Est GFR (Non-Af Amer) BUN/Creatinine Ratio (10-20) Glucose (70-99) mg/dl POC Glucose 160 H 136 H (70-99) mg/dl POC Glucose (other) (70-99) mg/dl Calcium (8.5-10.1) mg/dl Phosphorus (2.5-4.9) mg/dl Magnesium (1.8-2.4) mg/dl Beta-Hydroxybutyric Acd (0.2-2.81) mg/dl Coding Level of Care Code Critical Care 1st 30-74 mins Diagnoses Acute hypoxemic respiratory failure due to COVID-19 U07.1; J96.01 Mood disorder F39 DMII (diabetes mellitus, type 2) E11.9
[2020-08-14] MEDS: REMDESIVIR 100 MG in SODIUM CHLORIDE 0.9% 230 ML IV SCH (11:22)
[2020-08-14] MEDS: SODIUM CHLORIDE 0.9% 10ML FLUSH IV SCH (11:22)
[2020-08-14] MEDS: INSULIN GLARGINE SOLOSTAR 100 UNITS/ML 3 ML PEN SC SCH (11:28)
--- NOTE | 2020-08-14 14:07 | Hospitalist Progress Note ---
Date of Service August 14, 2020 Assessment & Plan (1) Severe sepsis: Secondary to covid pneumonia and is complicated by UTI, Resuscitated and remains hemodynamically stable Clinically stable and getting better gradually Remains critical but stable (2) Pneumonia due to COVID-19 virus: Cont Decadron, continue remdesivir with improvement in creatinine overnight. She is also on cefepime and doxycycline for possible superinfection with bacteria Remains stable but requiring high flow oxygen to maintain saturation Dexamethasone has been discontinued Continue with remdesivir Doxycycline has been discontinued due to interaction with sedation Continue with intravenous cefepime Repeat chest x-ray today shows improvement-we will continue current management Remains stable on vent (3) Acute respiratory failure: Requiring high flow via nasal cannula at max capacity and proning. She is a patient who may ultimately end up on the ventilator. Has been requiring high flow oxygen and doing proning and BiPAP at nighttime Will ask for pulmonary evaluation as the patient may need intubation down the line Remains intubated since last evening of 08/11/2020 Repeat chest x-ray did show improvement of pneumonia (4) UTI (urinary tract infection): She is covered empirically on broad-spectrum antibiotics.-Has been on cefepime De-escalate per clinical improvement and based on culture results. (5) DMII (diabetes mellitus, type 2): Recent A1c reflects good control. She is currently at goal on basal bolus insulin, and is requiring more than normal in the setting of steroid use. (6) Mood disorder: Chronic, stable. Continue Abilify, venlafaxine, and Wellbutrin per home regimen. Has been getting Zyprexa as needed-on hold now (7) DVT prophylaxis: Lovenox Full code Disposition-continue PCU monitoring Nutrition NGT feeding Admission and Anticipated Discharge Date Admission Date: August 09, 2020 Subjective He is requiring patient was seen and examined in Covid unit He was admitted with severe sepsis secondary to Covid pneumonia and complicated by UTI She still is requiring high flow oxygen to maintain saturation Feels a little better today 08/12/2020 The patient was seen and examined in Covid unit She has been intubated since last evening He remains stable and sedated 08/13/2020 Patient was seen and examined in Covid unit She is intubated and sedated with pressor support 08/14/2020 The patient was seen and examined in Covid telemetry unit She remains intubated and sedated Review of Systems Review of Systems: Unobtainable due to endotracheal tube Physical Exam Physical Exam: Sedated on mechanical ventilator Constitutional: well developed, well nourished, + ill appearing and + obese Eyes: PERRL, conjunctivae normal, anicteric sclerae ENMT: external ear and nose normal, oropharynx normal Neck: trachea midline, no thyromegaly Respiratory: no respiratory distress Auscultation: + diminished lung sounds and + crackles (Bibasilar crackles) Cardiovascular: Rate/Rhythm: regular rate and regular rhythm Heart Sounds: no murmur Extremities: + edema (Trace to 1+ edema bilaterally) Gastrointestinal (Abdomen): Inspection/Auscultation: normal bowel sounds; abdomen not distended Percussion/Palpation: abdomen soft; abdomen nontender Lymphatic: no cervical or axillary lymphadenopathy Results & Data Results & Data ([facility]) Vital Signs (Past 12 Hours) Vital Signs Temp Pulse Resp BP Pulse Ox 08/14/20 11:27 38.6 C H 83 128/53 L 93 08/14/20 11:25 83 36 H 90 08/14/20 11:00 38.1 C H 84 95 08/14/20 10:57 38.6 C H 83 124/49 L 95 08/14/20 10:30 38.6 C H 84 94 08/14/20 10:28 38.6 C H 87 107/55 L 95 08/14/20 10:00 38.6 C H 88 92 08/14/20 09:58 38.6 C H 88 144/54 H 92 08/14/20 09:30 38.6 C H 89 92 08/14/20 09:27 38.6 C H 89 148/53 H 92 08/14/20 09:00 38.6 C H 89 92 08/14/20 08:57 38.6 C H 89 150/53 H 92 08/14/20 08:30 38.6 C H 90 91 08/14/20 08:27 38.6 C H 90 152/56 H 91 08/14/20 08:00 38.7 C H 77 154/53 H 91 08/14/20 07:57 38.7 C H 91 H 160/56 H 91 08/14/20 07:30 38.7 C H 93 H 37 H 87 L 08/14/20 07:27 38.7 C H 92 H 165/61 H 86 L 08/14/20 07:00 38.7 C H 93 H 92 08/14/20 06:57 38.6 C H 92 H 166/56 H 88 L 08/14/20 06:30 38.5 C H 90 89 L 08/14/20 06:27 38.5 C H 90 158/61 H 89 L 08/14/20 06:00 38.5 C H 88 88 L 08/14/20 05:57 38.5 C H 88 142/51 H 88 L 08/14/20 05:52 38.5 C H 93 H 127/54 L 85 L 08/14/20 05:30 38.5 C H 87 92 08/14/20 05:27 38.4 C H 87 115/63 92 08/14/20 05:00 38.3 C H 83 93 08/14/20 04:57 38.3 C H 83 105/61 93 08/14/20 04:43 38.3 C H 81 103/64 92 08/14/20 04:38 38.2 C H 80 115/59 L 89 L 08/14/20 04:30 38.2 C H 78 08/14/20 04:27 38.2 C H 84 08/14/20 04:00 38.1 C H 83 89 L 08/14/20 03:57 38.1 C H 83 118/55 L 08/14/20 03:43 83 36 H 96 08/14/20 03:30 38.1 C H 80 98 08/14/20 03:27 38.1 C H 80 108/57 L 08/14/20 03:00 38.1 C H 79 99 08/14/20 02:57 38.1 C H 79 112/52 L 99 08/14/20 02:30 38.2 C H 79 99 08/14/20 02:27 38.2 C H 80 103/52 L 98 Laboratory Results Short CBC 08/14/20 Range/Units 06:11 WBC 13.82 H (4.8-10.8) K/uL Hgb 10.4 L (12.0-16.0) g/dL Hct 34.4 L (37-47) % Plt Count 190 (130-400) K/uL BMP 08/14/20 06:11 Sodium 145 Potassium 4.2 Chloride 114 H Carbon Dioxide 26 BUN 38 H Creatinine 0.91 Glucose 305 H* Calcium 8.6 Medications Administered Current Inpatient Medications Acetaminophen (Acetaminophen 325 Mg Tab) 325 mg PO Q6H PRN PRN Reason: Mild Pain Stop: 09/09/20 02:53 Aripiprazole (Aripiprazole 10 Mg Tab) 10 mg PO QAM [facility] Stop: 09/09/20 08:59 Last Admin: 08/14/20 07:26 Dose: 10 mg Documented by: Ascorbic Acid (Ascorbic Acid 500 Mg Tab) 1,000 mg PO QAM [facility] Stop: 09/11/20 08:59 Last Admin: 08/14/20 07:24 Dose: 1,000 mg Documented by: Aspirin (Aspirin 81 Mg Chew) 81 mg PO BID [facility] Stop: 09/11/20 20:59 Last Admin: 08/14/20 07:36 Dose: 81 mg Documented by: Atenolol (Atenolol 25 Mg Tablet) 25 mg PO QAM [facility] Stop: 09/09/20 08:59 Last Admin: 08/14/20 07:26 Dose: 25 mg Documented by: Atorvastatin Calcium (Atorvastatin 20 Mg Tab) 20 mg PO HS [facility] Stop: 09/09/20 20:59 Last Admin: 08/13/20 20:03 Dose: 20 mg Documented by: Benzonatate (Benzonatate 100 Mg Capsule) 100 mg PO TID PRN PRN Reason: Cough Stop: 09/09/20 02:53 Last Admin: 08/10/20 08:45 Dose: 100 mg Documented by: Bupropion HCl (Bupropion Hcl 100 Mg Tablet) 100 mg PO Q8H [facility] Stop: 09/11/20 19:59 Last Admin: 08/14/20 11:06 Dose: 100 mg Documented by: Dextrose (Dextrose 50% 50 Ml Syringe) 25 - 50 ml IV UD PRN; Protocol PRN Reason: Hypoglycemia Protocol Stop: 09/09/20 02:53 Last Admin: 08/14/20 06:06 Dose: 50 ml Documented by: Enoxaparin Sodium (Enoxaparin Inj 40 Mg/0.4 Ml Syr) 40 mg SQ QAM [facility] Stop: 09/10/20 08:59 Last Admin: 08/14/20 07:23 Dose: 40 mg Documented by: Famotidine (Famotidine 20 Mg Tab) 20 mg PO BID [facility] Stop: 09/09/20 08:59 Last Admin: 08/14/20 07:29 Dose: 20 mg Documented by: Fentanyl Citrate (Fentanyl Bolus From Bag) 50 mcg IV Q60M PRN PRN Reason: Pain or Agitation Stop: 08/25/20 21:22 Folic Acid (Folic Acid 1 Mg Tab) 1 mg PO QAM [facility] Stop: 09/09/20 08:59 Last Admin: 08/14/20 07:26 Dose: 1 mg Documented by: Glucagon (Glucagon For Inj 1 Mg Vial) 1 mg SQ UD PRN; Protocol PRN Reason: Hypoglycemia Protocol Stop: 09/09/20 02:53 Glucose (Glucose 10 Tabs/Tube) 4 - 8 tabs PO UD PRN; Protocol PRN Reason: Hypoglycemia Protocol Stop: 09/09/20 02:53 Glucose (Glucose 40% Gel 15 Gm Tube) 15 - 30 gm PO UD PRN; Protocol PRN Reason: Hypoglycemia Protocol Stop: 09/09/20 02:53 Heparin Sodium (Beef Lung) (Heparin 10 Unit/Ml 5 Ml Flush) 5 ml FLUSH PRN PRN PRN Reason: Flush Stop: 09/11/20 22:46 Cefepime HCl 2,000 mg/ Syringe 20 mls @ 5 mls/min IV Q8H [facility] Stop: 08/16/20 00:00 Last Admin: 08/14/20 07:32 Dose: 5 mls/min Documented by: Cisatracurium Besylate 40 mg/ (Sodium Chloride) 100 mls @ 20.475 mls/hr IV .Q4H54M [facility]; Protocol Stop: 09/10/20 21:29 Last Admin: 08/14/20 12:14 Dose: 3 mcg/kg/min, 20.5 mls/hr Documented by: Midazolam HCl (Versed) 125 mg in 250 mls @ 6 mls/hr IV .[id number] [facility]; Protocol Stop: 09/10/20 21:29 Last Titration: 08/14/20 07:02 Dose: 3 mg/hr, 6 mls/hr Documented by: Fentanyl Citrate (Fentanyl Drip) 1,250 mcg in 250 mls @ 15 mls/hr IV .[id number] [facility]; Protocol Stop: 08/25/20 21:29 Last Titration: 08/14/20 07:01 Dose: 75 mcg/hr, 15 mls/hr Documented by: Acetaminophen (Ofirmev) 1,000 mg in 100 mls @ 400 mls/hr IV Q8H PRN PRN Reason: Fever Stop: 08/14/20 21:55 Last Infusion: 08/14/20 08:14 Dose: Infused Documented by: Dexamethasone Sodium Phosphate (6 mg/ Syringe) 1.5 mls @ 1 mls/min IV DAILY [facility] Stop: 08/21/20 08:59 Last Admin: 08/12/20 08:20 Dose: 1 mls/min Documented by: Norepinephrine Bitartrate (Levophed/D5w) 8 mg in 508 mls @ 0 mls/hr IV .Q0M [facility]; Protocol Stop: 09/11/20 04:59 Last Titration: 08/13/20 15:27 Dose: 0 mcg/kg/min, 0 mls/hr Documented by: Insulin Aspart (Insulin Aspart 100 Units/Ml 3 Ml Pen) 0 units SC Q6 [facility] Stop: 09/09/20 02:53 Last Admin: 08/14/20 11:29 Dose: Not Given Documented by: Insulin Glargine (Insulin Glargine Solostar 100 Units/Ml 3 Ml Pen) 0 units SC Q12H [facility]; Protocol Stop: 09/13/20 00:00 Last Admin: 08/14/20 11:28 Dose: Not Given Documented by: Lamotrigine (Lamotrigine 100 Mg Tab) 150 mg PO HS [facility] Stop: 09/09/20 20:59 Last Admin: 08/13/20 20:03 Dose: 150 mg Documented by: Levalbuterol HCl (Levalbuterol Tartrate 15 Gm Hfa.Aer.Ad) 2 puffs INH Q6H PRN PRN Reason: Shortness Of Breath Or Wheezing Stop: 09/09/20 02:53 Midazolam HCl (Midazolam Bolus From Bag) 2 mg IV Q60M PRN PRN Reason: Sedation Stop: 09/10/20 21:22 Miscellaneous (Carbohydrates For Hypoglycemia ) 15 - 30 gm PO UD PRN PRN Reason: Hypoglycemia Protocol Stop: 09/09/20 02:53 Miscellaneous (Icu Electrolyte Replacement Protocol) 1 ea N/A BID@18 [facility]; Protocol Stop: 08/20/20 17:59 Last Admin: 08/14/20 08:13 Dose: Not Given Documented by: Miscellaneous Information (Cefepime Consult Active) 1 ea N/A UD PRN PRN Reason: Consult Stop: 09/09/20 02:53 Miscellaneous Information (Pharmacy Glycemic Mgmt Consult) 1 ea N/A UD PRN PRN Reason: Consult Stop: 09/11/20 12:18 Multi-Ingredient Cream (Artificial Tears Op Oint 3.5 Gm Tube) 1 appln OP Q4 [facility] Stop: 09/11/20 11:59 Last Admin: 08/14/20 11:07 Dose: 1 appln Documented by: Multivitamins/Minerals (Multi Vit W/Minerals Liquid 15 Ml Udp) 15 ml PO QAM [facility] Stop: 09/12/20 08:59 Last Admin: 08/14/20 07:23 Dose: 15 ml Documented by: Nutritional Formula (Peptamen Intense Vhp 1.0 Sage 1,000 Ml Bag) 0 ml GT CONT [facility]; Protocol Stop: 09/11/20 12:59 Last Admin: 08/14/20 09:18 Dose: Not Given Documented by: Thiamine HCl (Thiamine Hcl 100 Mg Tab) 100 mg PO QAM [facility] Stop: 09/11/20 08:59 Last Admin: 08/14/20 07:26 Dose: 100 mg Documented by: Venlafaxine HCl (Venlafaxine Hcl 50 Mg Tab) 100 mg PO Q8H [facility] Stop: 09/11/20 19:59 Last Admin: 08/14/20 11:06 Dose: 100 mg Documented by: Zinc Sulfate (Zinc Sulfate 220 Mg Capsule) 220 mg PO QAM [facility] Stop: 09/11/20 08:59 Last Admin: 08/14/20 07:27 Dose: 220 mg Documented by:
--- NOTE | 2020-08-14 20:33 | Procedure Note ---
Procedure Note Date of Service August 14, 2020 Procedure Date: Noted Above Procedure: Percutaneous Dilatational Tracheotomy with Bronchoscopic Guidance Pre-procedure Diagnosis & Indication: Chronic respiratory failure and need for ongoing mechanical ventilation Post-procedure Diagnosis: same as above Prior to Procedure: Informed Consent: The risks, benefits, indications, potential complications, and alternatives were explained [facility] and informed consent was obtained. Performed by: Kulwant Gordon DO Bronchoscopy Protection Officer: Cory Baker PA-C Preprocedure: The identity of the patient was confirmed and a bedside time out was performed. Renick protocol was followed for this procedure. Prior to the initiation of sedation or the procedure, a timeout was performed. The patients identity was verified by confirming the patients wrist band for name, date of , and medical record number. Everyone in the room was in agreement with the patient identify, the procedure to be performed, consent was in place and matched the planned procedure, and the procedure site. The area was cleaned with a CHG scrub and draped with large sterile barrier. Hand hygiene was performed, and cap, mask, sterile gown, and sterile gloves were worn. The patient was covered by a large sterile drape. Sterile technique was maintained for the entire procedure. Anesthesia: The patient was intubated and sedated prior to the procedure. Additional midazolam and fentanyl was given for deep sedation. Please refer to the accompanying procedural sedation form for additional details. Once the patient was adequately sedated and with continuous BIS monitoring, vecuronium was administered for paralysis. Description of Procedure: The patient was placed in the supine position. The anterior neck was prepped and draped in usual sterile fashion. 1% lidocaine was administered approximately 2 fingerbreadths above the sternal notch for local anesthesia. The bronchoscope was introduced through the endotracheal tube and the trachea was properly visualized. The endotracheal tube was then gradually withdrawn within the trachea under direct bronchoscopic visualization. The area of the surgical site was initially transilluminated, and proper midline position was confirmed by bouncing the needle from the tracheostomy tray over the trachea with bronchoscopic examination. The needle was advanced into the trachea and proper positioning was confirmed with direct visualization. The needle was then removed leaving a white outer cannula in position. The wire from the tracheostomy tray was then advanced through the white outer cannula. The cannula was then removed. The initial small, blue dilator was then advanced over the wire into the trachea for initial dilation. The large, tapered dilator was then advanced over the wire into the trachea. The dilator was removed leaving the wire and white inner cannula in position. A number 6 percutaneous Shiley tracheostomy tube with appropriate inner cannula was then advanced over the wire and white inner cannula into the trachea. Proper positioning was confirmed with bronchoscopic visualization. The tracheostomy tube was then sutured in place with four nylon sutures. It was further secured with a tracheostomy tie. Estimated blood loss: Less than 5 mL. Complications: None immediate. Coding CPT Codes ENT - ENT: 14092 Incision of windpipe ([id number]) [facility] Procedure Codes (Charges) ENT ENT: 35331 Incision of windpipe
[2020-08-14] MEDS ORDERED: oxyCODONE HCL IR 5 MG TAB (IMMEDIATE RELEASE) PO PRN ×2 (20:36)
[2020-08-14] MEDS ORDERED: STAT IV Infusion **Titration per Protocol STA (20:36)
[2020-08-14] MEDS ORDERED: PEPTAMEN INTENSE VHP 1.0 CAL 1,000 ML BAG GT SCH (20:45)
[2020-08-14] MEDS ORDERED: DEXMEDETOMIDINE HCL 200 MCG in SODIUM CHLORIDE 0.9% 48 ML IV SCH (21:00)
[2020-08-14] MEDS: ATORVASTATIN 20 MG TAB PO SCH (21:33)
[2020-08-14] MEDS: lamoTRIgine 100 MG TAB PO SCH (21:34)
--- NOTE | 2020-08-14 22:09 | Procedure Note ---
Procedure Note Date of Service August 14, 2020 Procedure: Flexible Bronchoscopy to aid in percutaneous tracheostomy tube placement Attending/Rough Planer Tender: Dr. Gordon, Zac Baker PA-C Anesthetic/Sedation: Per attending Indication: Direct visualization to aid in percutaneous tracheostomy tube placement Consent obtained from via phone by attending physician. A time-out was completed verifying correct patient, procedure, site, positioning, and implant(s) or special equipment if applicable. When directed by attending, the bronchoscope was advanced into the ET tube until visualization of the trachea and wolf was achieved. At this point, the ET tube was retracted slowly until we were able to visualize location for potential tracheostomy site. At this point, visualization was held in place while procedure was conducted by my attending physician. Introducer needle was able to be visualized penetrating the anterior surface of the tracheal rings. No penetration of the back wall noted. Guidewire was witnessed descending down the trachea. Dilators x2 were visualized followed by placement of tracheostomy tube and inner cannula. Cuff was witnessed to be inflated in the trachea without issue. At this time, the bronchoscope was removed from the ET tube. After tracheostomy tube was secured by my attending, the bronchoscope was advanced into the tracheostomy tube to inspect visualization as well as for any bleeding or significant secretions. Large amounts of tenacious secretions were evacuated from the LEFT lung field. Scant amount of clotted blood was noted without any active bleeding appreciated. Lung tissues otherwise appeared appropriate. The bronchoscope was then retracted and procedure was complete. Patient tolerated procedure well. No immediate complications were met. Complications: NONE Coding CPT Codes Pulmonary/Thoracic - Pulmonary and Thoracic: 15100 Bronchoscopy, clear airways ([id number]) [facility] Procedure Codes (Charges) Pulmonary/Thoracic Procedure 1: Pulmonary and Thoracic: 00144 Bronchoscopy, clear airways
[2020-08-15] MEDS: ARTIFICIAL TEARS OP OINT 3.5 GM TUBE OP SCH ×6 (00:12→22:53)
[2020-08-15] MEDS: INSULIN ASPART 100 UNITS/ML 3 ML PEN SC SCH ×4 (00:12→17:30)
[2020-08-15] MEDS: INSULIN GLARGINE SOLOSTAR 100 UNITS/ML 3 ML PEN SC SCH ×2 (00:12→11:30)
[2020-08-15] MEDS: CEFEPIME 2,000 MG in SYRINGE 0 ML IV SCH ×2 (00:16→07:17)
[2020-08-15] MEDS: DEXMEDETOMIDINE HCL 400 MCG in 0.9 % SODIUM CHLORIDE 96 ML IV SCH ×6 (01:59→21:29)
[2020-08-15] MEDS: VENLAFAXINE HCL 50 MG TAB PO SCH ×3 (03:51→22:52)
[2020-08-15] MEDS: buPROPion HCl 100 MG TABLET PO SCH ×3 (03:52→22:53)
[2020-08-15 04:43] LABS: iSTAT Art Bld Gas pCO2 Correct 50 mmHg (35-46); iSTAT Art Bld Gas pH Corrected 7.284 (7.35-7.45); iSTAT Arterial Blood Gas HCO3 24 meg/L (19-24); iSTAT Arterial Blood Gas pCO2 47 mmHg (35-46); iSTAT Arterial Blood Gas pO2 102 mmHg (80-95); iSTAT Arterial Blood Gas pO2 C 110; iSTAT Carbon Dioxide 25 mmol/L (24-31); iSTAT FiO2 90 %; iSTAT Hematocrit 31 % (37-47); iSTAT Hemoglobin 10.5 g/dl (12.0-16.0); iSTAT Site Art Line; iSTAT Sodium 144 mmol/L (135-144)
[2020-08-15] MEDS: ICU ELECTROLYTE REPLACEMENT PROTOCOL SCH ×2 (07:12→17:08)
[2020-08-15 07:18] LABS: Basophils # (auto) 0.03 K/uL (0-0.2); Basophils % (auto) 0.2 %; Eosinophils % (auto) 1.4 %; Hematocrit (blood only) 34.8 % (37-47); Hemoglobin 10.6 g/dL (12.0-16.0); Immature Granulocytes # (auto) 0.66 K/uL (0.00-0.02); Immature Granulocytes % (auto) 4.7 %; Lymphocytes # (auto) 0.86 K/uL (1.2-3.4); Lymphocytes % (auto) 6.1 %; Mean Corpuscular Hgb Conc 30.5 g/dL (32-36); Mean Corpuscular Volume 95.3 fL (80-100); Mean Platelet Volume 10.7 fL (7.4-10.4); Monocytes # (auto) 0.57 K/uL (0.11-0.59); Monocytes % (auto) 4.1 %; Neutrophils # (auto) 11.67 K/uL (1.4-6.5); Neutrophils % (auto) 83.5 %; Nucleated RBC # (auto) 0.02 K/uL (0-0); Nucleated RBC % (auto) 0.1 %; Platelet Count 219 K/uL (130-400); Red Blood Count 3.65 M/uL (4.2-5.4); White Blood Count 13.99 K/uL (4.8-10.8)
[2020-08-15] MEDS: FAMOTIDINE 20 MG TAB PO SCH ×2 (07:20→22:53)
[2020-08-15] MEDS: THIAMINE HCL 100 MG TAB PO SCH (07:20)
[2020-08-15] MEDS: ASCORBIC ACID 500 MG TAB PO SCH (07:21)
[2020-08-15] MEDS: ARIPiprazole 10 MG TAB PO SCH (07:21)
[2020-08-15] MEDS: FOLIC ACID 1 MG TAB PO SCH (07:21)
[2020-08-15] MEDS: ZINC SULFATE 220 MG CAPSULE PO SCH (07:21)
[2020-08-15] MEDS: DEXAMETHASONE SOD PHOSPHATE 6 MG in SYRINGE 0 ML IV SCH (07:22)
[2020-08-15] MEDS: ENOXAPARIN INJ 40 MG/0.4 ML SYR SQ SCH (07:22)
[2020-08-15] MEDS: MULTI VIT W/MINERALS LIQUID 15 ML UDP PO SCH (07:23)
[2020-08-15] MEDS: ASPIRIN 81 MG CHEW PO SCH ×2 (07:24→22:53)
[2020-08-15] MEDS: ATENOLOL 25 MG TABLET PO SCH (07:24)
[2020-08-15 07:52] LABS: BUN Creatinine Ratio 45.7 (10-20); Calcium 8.6 mg/dl (8.5-10.1); Creatinine Clr Calc Pharmacy 65.9 ml/min; Est GFR (African American) 75.9; Est GFR (Non-African American) 65.5; Magnesium 2.4 mg/dl (1.8-2.4); Phosphorus 3.1 mg/dl (2.5-4.9)
--- NOTE | 2020-08-15 07:52 | XRay Report ---
XR chest 1V portable CLINICAL HISTORY: Respiratory failure COMPARISON STUDY: 08/13/2020 FINDINGS: The endotracheal tube has been removed and a tracheostomy tube is been placed. There is a l eft subclavian central venous catheter. There is no pneumothorax. There is an enteric tube which pass es into the stomach. The cardiac and mediastinal contours remain stable. There are diffuse bilateral pulmonary airspace opacities right more severe than left.[ IMPRESSION: 1. Persistent extensive bilateral pulmonary airspace opacities 2. Interval removal of the tracheal tube and placement of a tracheostomy tube. ACT 112: Negative or not required by law. Electronically signed by: Evans Kim M.D. 08/15/2020 7:51 AM
--- NOTE | 2020-08-15 08:10 | XRay Report ---
XR chest 1V portable HISTORY: 59 years-old Female f/u hypoxia COMPARISON: 08/14/2020 TECHNIQUE: AP view the chest FINDINGS: Tracheostomy cannula overlies the midline at the level the clavicular heads. Left subclavian central venous catheter distal tip projects over the expected location of the left brachiocephalic vein. Dist al tip of feeding tube projects superiorly within the region of the gastric lumen. Persistent extensive bilateral pulmonary airspace opacities are redemonstrated and are again most pro nounced within the right greater than left lung bases. No pneumothorax. Findings appear stable to sli ghtly progressed. Bones appear grossly intact. IMPRESSION: 1. Lines and tubes as above. 2. Extensive bilateral airspace opacities redemonstrated which appears stable to slightly progressed. 3. No pneumothorax. ACT 112: Negative or not required by law. The above report was generated using voice recognition software. It may contain grammatical, syntax o r spelling errors. Electronically signed by: Cruz Retana M.D. 08/15/2020 8:09 AM
--- NOTE | 2020-08-15 08:12 | Critical Care Progress Note ---
Date of Service August 15, 2020 Assessment & Plan (1) Acute hypoxemic respiratory failure due to COVID-19: Reason Critically Ill: 59-year-old female with acute hypoxic respiratory failure secondary to Covid pneumonia and obesity BMI 39.4 PLAN: Neuro: Neuromuscular blockade -Holding steroids while on neuromuscular blockade -Finished 3 days of neuromuscular blockade on 08/14 Mood disorder -Effexor adjustment Resp: Acute hypoxic respiratory failure secondary to COVID-19 -ARDSnet high PEEP low FiO2 with pronation therapy -Patient's compliance is not improved during the 3 days of pronation therapy -No additional fluid at this time consider diuresis -Hypoxic during induction of intubation, concern for possible anoxic injury -remdesivir completed -Continue to wean as tolerated COVID-19 positivity date per ED note indicate 1 week prior to presentation to ED (08/03/2020 per the patient's ) Covid day: 13 CV: Hypotension: Resolved Fluids/Renal: Electrolyte protocol ID: Cefepime deescalated to ceftriaxone for superimposed bacterial infection Urinary tract infection: E. coli: Citrobacter -Day GI/Nutrition: Can increase tube feeds to goal tube feeds Heme: Mild anemia DVT prophylaxis: Lovenox 40 twice daily for Covid associated DVT prophylaxis Endocrine: ICU hyperglycemia protocol Vascular access: Left subclavian placed 08/11 right arterial line placed 08/11 Code Status: DNR in event of cardiac arrest after discussion with Disposition: ICU (2) Mood disorder: (3) DMII (diabetes mellitus, type 2): (4) Infection due to Citrobacter: (5) E-coli UTI: Admission and Anticipated Discharge Date Admission Date: August 09, 2020 Supervising Physician Co-Signing Physician Notes I have personally spent 40 minutes of critical care time in the direct management of this patient. This is a life/limb threatening event. This includes time spent evaluating patient, direct bedside care, chart review, placing orders, interpretation of diagnostic studies, discussion with consultants, patient, and/or family members regarding treatment decisions, as well as other required patient management activities. This time is exclusive of all separately billable procedures, and teaching time and separate from and in addition to any other critical care service time. Subjective Had successful placement of tracheostomy Review of Systems Review of Systems: Unobtainable due to endotracheal tube (Due to tracheostomy tube) Physical Exam Physical Exam: General: GCS 3T: Heavily sedated Skin: Warm, dry, Head: Atraumatic Ears, nose, mouth and throat: Tracheostomy in good position Cardiovascular: Normal peripheral perfusion Respiratory: Ventilator settings reviewed Gastrointestinal: Non distended Musculoskeletal: No deformity Results & Data Results & Data ([facility]) Vital Signs (Past 12 Hours) Vital Signs Temp Pulse Resp BP Pulse Ox 08/15/20 07:47 67 38 H 91 08/15/20 06:00 37.0 C 72 95 08/15/20 05:58 72 116/72 95 08/15/20 05:30 73 94 08/15/20 05:28 72 120/59 L 94 08/15/20 05:00 37.5 C 74 95 08/15/20 04:58 74 109/64 95 08/15/20 04:30 75 94 08/15/20 04:28 74 113/68 93 08/15/20 04:02 72 94 08/15/20 04:00 74 110/71 08/15/20 03:59 73 91 08/15/20 03:50 75 38 H 91 08/15/20 03:30 76 92 08/15/20 03:28 38.4 C H 76 112/74 93 08/15/20 03:00 76 93 08/15/20 02:58 77 108/80 92 08/15/20 02:30 78 92 08/15/20 02:28 77 109/72 93 08/15/20 02:00 39.0 C H 79 93 08/15/20 01:58 79 125/71 93 08/15/20 01:30 39.3 C H 78 93 08/15/20 01:28 39.3 C H 79 119/63 93 08/15/20 01:00 79 96 08/15/20 00:58 80 117/64 96 08/15/20 00:30 39.3 C H 82 95 08/15/20 00:28 82 105/70 95 08/15/20 00:08 82 149/66 H 93 08/15/20 00:04 82 79/17 L 98 08/15/20 00:00 39.3 C H 94 08/14/20 23:30 39.2 C H 81 94 08/14/20 23:28 39.2 C H 82 114/66 92 08/14/20 23:22 81 41 H 93 08/14/20 23:00 39.1 C H 79 96 08/14/20 22:58 39.1 C H 80 112/58 L 95 08/14/20 22:30 39.0 C H 81 93 08/14/20 22:28 39.0 C H 80 97/48 L 96 08/14/20 22:00 38.9 C H 81 92 08/14/20 21:58 38.9 C H 81 127/72 92 08/14/20 21:30 38.8 C H 85 94 08/14/20 21:28 38.8 C H 85 131/51 L 94 08/14/20 21:00 38.7 C H 84 94 08/14/20 20:58 38.7 C H 83 115/59 L 94 08/14/20 20:30 38.6 C H 82 92 08/14/20 20:28 38.6 C H 78 129/68 91 Laboratory Results 08/15/20 08/15/20 08/15/20 Range/Units 06:21 06:21 05:32 WBC 13.99 H (4.8-10.8) K/uL RBC 3.65 L (4.2-5.4) M/uL Hgb 10.6 L (12.0-16.0) g/dL POC Hgb (12.0-16.0) g/dl Hct 34.8 L (37-47) % POC Hct (37-47) % MCV 95.3 (80-100) fL MCH 29.0 (25-34) pg MCHC 30.5 L (32-36) g/dL RDW Std Deviation 56.0 H (36.4-46.3) fL RDW Coeff of Jason 16.0 H (11.5-14.5) % Plt Count 219 (130-400) K/uL MPV 10.7 H (7.4-10.4) fL Immature Gran % (Auto) 4.7 % Neut % (Auto) 83.5 % Lymph % (Auto) 6.1 % [place] % (Auto) 4.1 % Eos % (Auto) 1.4 % Baso % (Auto) 0.2 % Neut # (Auto) 11.67 H (1.4-6.5) K/uL Lymph # (Auto) 0.86 L (1.2-3.4) K/uL [place] # (Auto) 0.57 (0.11-0.59) K/uL Eos # (Auto) 0.20 (0-0.5) K/uL Baso # (Auto) 0.03 (0-0.2) K/uL Immature Gran # (Auto) 0.66 H (0.00-0.02) K/uL Absolute Nucleated RBC 0.02 H (0-0) K/uL Nucleated RBC % (auto) 0.1 % Sample Site POC pH (7.35-7.45) POC pCO2 (35-46) mmHg POC pO2 (80-95) mmHg POC HCO3 (19-24) harman/L POC Total CO2 (24-31) mmol/L POC Base Excess (-9-1.8) harman/L ABG pH (Temp Correct) (7.35-7.45) ABG pCO2 (Temp Corrct (35-46) mmHg POC ABG pO2 at Pt Temp POC ABG O2 Sat (90-95) % John Test O2 Delivery Device POC O2 Rate Minute Ventilation POC FiO2 % Tidal Volume PEEP POC Sodium (135-144) mmol/L Sodium 144 (136-145) mmol/L POC Potassium (3.3-5.0) mmol/L Potassium 5.0 D (3.5-5.1) mmol/L Chloride 115 H (98-107) mmol/L Carbon Dioxide 22 (21-32) mmol/L Anion Gap 7.0 (3-11) BUN 43 H (7-18) mg/dl Creatinine 0.94 (0.6-1.2) mg/dl Est Cr Clr Drug Dosing 65.9 ml/min Est GFR ( Amer) 75.9 Est GFR (Non-Af Amer) 65.5 BUN/Creatinine Ratio 45.7 H (10-20) Glucose 193 H (70-99) mg/dl POC Glucose 172 H (70-99) mg/dl Calcium 8.6 (8.5-10.1) mg/dl Phosphorus 3.1 (2.5-4.9) mg/dl Magnesium 2.4 (1.8-2.4) mg/dl 08/15/20 08/15/20 08/14/20 Range/Units 03:59 00:05 18:28 WBC (4.8-10.8) K/uL RBC (4.2-5.4) M/uL Hgb (12.0-16.0) g/dL POC Hgb 10.5 L (12.0-16.0) g/dl Hct (37-47) % POC Hct 31 L (37-47) % MCV (80-100) fL MCH (25-34) pg MCHC (32-36) g/dL RDW Std Deviation (36.4-46.3) fL RDW Coeff of Jason (11.5-14.5) % Plt Count (130-400) K/uL MPV (7.4-10.4) fL Immature Gran % (Auto) % Neut % (Auto) % Lymph % (Auto) % [place] % (Auto) % Eos % (Auto) % Baso % (Auto) % Neut # (Auto) (1.4-6.5) K/uL Lymph # (Auto) (1.2-3.4) K/uL [place] # (Auto) (0.11-0.59) K/uL Eos # (Auto) (0-0.5) K/uL Baso # (Auto) (0-0.2) K/uL Immature Gran # (Auto) (0.00-0.02) K/uL Absolute Nucleated RBC (0-0) K/uL Nucleated RBC % (auto) % Sample Site Art Line POC pH 7.30 L (7.35-7.45) POC pCO2 47 H (35-46) mmHg POC pO2 102 H (80-95) mmHg POC HCO3 24 (19-24) harman/L POC Total CO2 25 (24-31) mmol/L POC Base Excess -3.0 (-9-1.8) harman/L ABG pH (Temp Correct) 7.284 L (7.35-7.45) ABG pCO2 (Temp Corrct 50 H (35-46) mmHg POC ABG pO2 at Pt Temp 110 POC ABG O2 Sat 97.0 H (90-95) % John Test NA O2 Delivery Device Ventilator POC O2 Rate 36 Minute Ventilation 11 POC FiO2 90 % Tidal Volume 300 PEEP 16 POC Sodium 144 (135-144) mmol/L Sodium (136-145) mmol/L POC Potassium 5.0 (3.3-5.0) mmol/L Potassium (3.5-5.1) mmol/L Chloride (98-107) mmol/L Carbon Dioxide (21-32) mmol/L Anion Gap (3-11) BUN (7-18) mg/dl Creatinine (0.6-1.2) mg/dl Est Cr Clr Drug Dosing ml/min Est GFR ( Amer) Est GFR (Non-Af Amer) BUN/Creatinine Ratio (10-20) Glucose (70-99) mg/dl POC Glucose 148 H 75 (70-99) mg/dl Calcium (8.5-10.1) mg/dl Phosphorus (2.5-4.9) mg/dl Magnesium (1.8-2.4) mg/dl 08/14/20 08/14/20 08/14/20 Range/Units 18:11 17:50 17:48 WBC (4.8-10.8) K/uL RBC (4.2-5.4) M/uL Hgb (12.0-16.0) g/dL POC Hgb (12.0-16.0) g/dl Hct (37-47) % POC Hct (37-47) % MCV (80-100) fL MCH (25-34) pg MCHC (32-36) g/dL RDW Std Deviation (36.4-46.3) fL RDW Coeff of Jason (11.5-14.5) % Plt Count (130-400) K/uL MPV (7.4-10.4) fL Immature Gran % (Auto) % Neut % (Auto) % Lymph % (Auto) % [place] % (Auto) % Eos % (Auto) % Baso % (Auto) % Neut # (Auto) (1.4-6.5) K/uL Lymph # (Auto) (1.2-3.4) K/uL [place] # (Auto) (0.11-0.59) K/uL Eos # (Auto) (0-0.5) K/uL Baso # (Auto) (0-0.2) K/uL Immature Gran # (Auto) (0.00-0.02) K/uL Absolute Nucleated RBC (0-0) K/uL Nucleated RBC % (auto) % Sample Site POC pH (7.35-7.45) POC pCO2 (35-46) mmHg POC pO2 (80-95) mmHg POC HCO3 (19-24) harman/L POC Total CO2 (24-31) mmol/L POC Base Excess (-9-1.8) harman/L ABG pH (Temp Correct) (7.35-7.45) ABG pCO2 (Temp Corrct (35-46) mmHg POC ABG pO2 at Pt Temp POC ABG O2 Sat (90-95) % John Test O2 Delivery Device POC O2 Rate Minute Ventilation POC FiO2 % Tidal Volume PEEP POC Sodium (135-144) mmol/L Sodium (136-145) mmol/L POC Potassium (3.3-5.0) mmol/L Potassium (3.5-5.1) mmol/L Chloride (98-107) mmol/L Carbon Dioxide (21-32) mmol/L Anion Gap (3-11) BUN (7-18) mg/dl Creatinine (0.6-1.2) mg/dl Est Cr Clr Drug Dosing ml/min Est GFR ( Amer) Est GFR (Non-Af Amer) BUN/Creatinine Ratio (10-20) Glucose (70-99) mg/dl POC Glucose 60 L* 66 L* 51 L* (70-99) mg/dl Calcium (8.5-10.1) mg/dl Phosphorus (2.5-4.9) mg/dl Magnesium (1.8-2.4) mg/dl 08/14/20 Range/Units 11:21 WBC (4.8-10.8) K/uL RBC (4.2-5.4) M/uL Hgb (12.0-16.0) g/dL POC Hgb (12.0-16.0) g/dl Hct (37-47) % POC Hct (37-47) % MCV (80-100) fL MCH (25-34) pg MCHC (32-36) g/dL RDW Std Deviation (36.4-46.3) fL RDW Coeff of Jason (11.5-14.5) % Plt Count (130-400) K/uL MPV (7.4-10.4) fL Immature Gran % (Auto) % Neut % (Auto) % Lymph % (Auto) % [place] % (Auto) % Eos % (Auto) % Baso % (Auto) % Neut # (Auto) (1.4-6.5) K/uL Lymph # (Auto) (1.2-3.4) K/uL [place] # (Auto) (0.11-0.59) K/uL Eos # (Auto) (0-0.5) K/uL Baso # (Auto) (0-0.2) K/uL Immature Gran # (Auto) (0.00-0.02) K/uL Absolute Nucleated RBC (0-0) K/uL Nucleated RBC % (auto) % Sample Site POC pH (7.35-7.45) POC pCO2 (35-46) mmHg POC pO2 (80-95) mmHg POC HCO3 (19-24) harman/L POC Total CO2 (24-31) mmol/L POC Base Excess (-9-1.8) harman/L ABG pH (Temp Correct) (7.35-7.45) ABG pCO2 (Temp Corrct (35-46) mmHg POC ABG pO2 at Pt Temp POC ABG O2 Sat (90-95) % John Test O2 Delivery Device POC O2 Rate Minute Ventilation POC FiO2 % Tidal Volume PEEP POC Sodium (135-144) mmol/L Sodium (136-145) mmol/L POC Potassium (3.3-5.0) mmol/L Potassium (3.5-5.1) mmol/L Chloride (98-107) mmol/L Carbon Dioxide (21-32) mmol/L Anion Gap (3-11) BUN (7-18) mg/dl Creatinine (0.6-1.2) mg/dl Est Cr Clr Drug Dosing ml/min Est GFR ( Amer) Est GFR (Non-Af Amer) BUN/Creatinine Ratio (10-20) Glucose (70-99) mg/dl POC Glucose 136 H (70-99) mg/dl Calcium (8.5-10.1) mg/dl Phosphorus (2.5-4.9) mg/dl Magnesium (1.8-2.4) mg/dl Coding Level of Care Code Critical Care 1st 30-74 mins Diagnoses Acute hypoxemic respiratory failure due to COVID-19 U07.1; J96.01 Mood disorder F39 DMII (diabetes mellitus, type 2) E11.9 Infection due to Citrobacter A49.8 E-coli UTI N39.0; B96.20
--- NOTE | 2020-08-15 12:39 | XRay Report ---
XR KUB/Abdomen 1 view CLINICAL HISTORY: X-ray for feeding tube placement COMPARISON STUDY: No previous studies for comparison. FINDINGS: A single portable view centered on the hemidiaphragms is provided for interpretation. There are bilateral pulmonary airspace opacities. There is a feeding tube with its tip in the stomach. The re is mild gaseous prominence of the bowel. Mild ileus cannot be excluded IMPRESSION: The feeding tube is positioned with its tip in the stomach ACT 112: Negative or not required by law. Electronically signed by: Evans Kim M.D. 08/15/2020 12:38 PM
--- NOTE | 2020-08-15 12:59 | Hospitalist Progress Note ---
Date of Service August 15, 2020 Assessment & Plan (1) Severe sepsis: Secondary to covid pneumonia and is complicated by UTI, Resuscitated and remains hemodynamically stable Clinically stable and getting better gradually Remains critical but stable (2) Pneumonia due to COVID-19 virus: Cont Decadron, continue remdesivir with improvement in creatinine overnight. She is also on cefepime and doxycycline for possible superinfection with bacteria Remains stable but requiring high flow oxygen to maintain saturation Dexamethasone has been discontinued Continue with remdesivir Doxycycline has been discontinued due to interaction with sedation Continue with intravenous cefepime Repeat chest x-ray today shows improvement-we will continue current management Status post tracheotomy last night and the patient remains stable Medically a little bit better (3) Acute respiratory failure: Requiring high flow via nasal cannula at max capacity and proning. She is a patient who may ultimately end up on the ventilator. Has been requiring high flow oxygen and doing proning and BiPAP at nighttime Will ask for pulmonary evaluation as the patient may need intubation down the line Remains intubated since last evening of 08/11/2020 Repeat chest x-ray did show improvement of pneumonia (4) UTI (urinary tract infection): She is covered empirically on broad-spectrum antibiotics.-Has been on cefepime De-escalate per clinical improvement and based on culture results. Remains on intravenous cefepime (5) DMII (diabetes mellitus, type 2): Recent A1c reflects good control. She is currently at goal on basal bolus insulin, and is requiring more than normal in the setting of steroid use. (6) Mood disorder: Chronic, stable. Continue Abilify, venlafaxine, and Wellbutrin per home regimen. Has been getting Zyprexa as needed-on hold now (7) DVT prophylaxis: Lovenox Full code Disposition-continue PCU monitoring Nutrition NGT feeding Her is being updated daily Admission and Anticipated Discharge Date Admission Date: August 09, 2020 Subjective He is requiring patient was seen and examined in Covid unit He was admitted with severe sepsis secondary to Covid pneumonia and complicated by UTI She still is requiring high flow oxygen to maintain saturation Feels a little better today 08/12/2020 The patient was seen and examined in Covid unit She has been intubated since last evening He remains stable and sedated 08/13/2020 Patient was seen and examined in Covid unit She is intubated and sedated with pressor support 08/14/2020 The patient was seen and examined in Covdc telemetry unit She remains intubated and sedated 08/15/2020 Patient was seen and examined in Covid unit She is a status post tracheotomy and remains sedated Condition is a little bit better compared with yesterday Review of Systems Review of Systems: Unobtainable due to reduced consciousness Physical Exam Physical Exam: Status post tracheotomy and remains sedated Constitutional: well developed, well nourished, + ill appearing and + obese Eyes: PERRL, conjunctivae normal, anicteric sclerae ENMT: external ear and nose normal, oropharynx normal Neck: trachea midline, no thyromegaly Respiratory: no respiratory distress Auscultation: + diminished lung sounds and + crackles (Bibasilar crackles) Has tracheotomy tube Cardiovascular: Rate/Rhythm: regular rate and regular rhythm Heart Sounds: no murmur Extremities: + edema (Trace to 1+ edema bilaterally) Gastrointestinal (Abdomen): Inspection/Auscultation: normal bowel sounds; abdomen not distended Percussion/Palpation: abdomen soft; abdomen nontender Psychiatric: A+Ox3, euthymic affect Lymphatic: no cervical or axillary lymphadenopathy Results & Data Results & Data ([facility]) Vital Signs (Past 12 Hours) Vital Signs Temp Pulse Resp BP Pulse Ox 08/15/20 11:48 62 38 H 99 08/15/20 10:00 36.5 C 64 99 08/15/20 09:30 64 97 08/15/20 09:00 65 93 08/15/20 08:58 65 144/69 H 92 08/15/20 08:30 66 91 08/15/20 08:28 66 127/70 91 08/15/20 08:00 68 124/57 L 92 08/15/20 07:58 68 132/67 91 08/15/20 07:47 67 38 H 91 08/15/20 07:37 68 130/68 95 08/15/20 07:30 69 94 08/15/20 07:28 69 130/68 95 08/15/20 07:04 69 130/69 95 08/15/20 07:00 70 95 08/15/20 06:58 69 122/72 96 08/15/20 06:30 71 95 08/15/20 06:28 71 125/68 96 08/15/20 06:00 37.0 C 72 95 08/15/20 05:58 72 116/72 95 08/15/20 05:30 73 94 08/15/20 05:28 72 120/59 L 94 08/15/20 05:00 37.5 C 74 95 08/15/20 04:58 74 109/64 95 08/15/20 04:30 75 94 08/15/20 04:28 74 113/68 93 08/15/20 04:02 72 94 08/15/20 04:00 74 110/71 08/15/20 03:59 73 91 08/15/20 03:50 75 38 H 91 08/15/20 03:30 76 92 08/15/20 03:28 38.4 C H 76 112/74 93 08/15/20 03:00 76 93 08/15/20 02:58 77 108/80 92 08/15/20 02:30 78 92 08/15/20 02:28 77 109/72 93 08/15/20 02:00 39.0 C H 79 93 08/15/20 01:58 79 125/71 93 08/15/20 01:30 39.3 C H 78 93 08/15/20 01:28 39.3 C H 79 119/63 93 08/15/20 01:00 79 96 08/15/20 00:58 80 117/64 96 Laboratory Results Short CBC 08/15/20 Range/Units 06:21 WBC 13.99 H (4.8-10.8) K/uL Hgb 10.6 L (12.0-16.0) g/dL Hct 34.8 L (37-47) % Plt Count 219 (130-400) K/uL BMP 08/15/20 06:21 Sodium 144 Potassium 5.0 D Chloride 115 H Carbon Dioxide 22 BUN 43 H Creatinine 0.94 Glucose 193 H Calcium 8.6 Medications Administered Current Inpatient Medications Acetaminophen (Acetaminophen 325 Mg Tab) 325 mg PO Q6H PRN PRN Reason: Mild Pain Stop: 09/09/20 02:53 Last Admin: 08/14/20 21:37 Dose: 325 mg Documented by: [facility]iprazole ([facility] 10 Mg Tab) [facility] Stop: 09/09/20 08:59 Last Admin: 08/15/20 07:21 Dose: 10 mg Documented by: Ascorbic Acid (Ascorbic Acid 500 Mg Tab) 1,000 mg PO QAM [facility] Stop: 09/11/20 08:59 Last Admin: 08/15/20 07:21 Dose: 1,000 mg Documented by: Aspirin (Aspirin 81 Mg Chew) 81 mg PO BID [facility] Stop: 09/11/20 20:59 Last Admin: 08/15/20 07:24 Dose: 81 mg Documented by: Atenolol (Atenolol 25 Mg Tablet) 25 mg PO QAM [facility] Stop: 09/09/20 08:59 Last Admin: 08/15/20 07:24 Dose: 25 mg Documented by: Atorvastatin Calcium (Atorvastatin 20 Mg Tab) 20 mg PO [facility] Stop: 09/09/20 20:59 Last Admin: 08/14/20 21:33 Dose: 20 mg Documented by: Benzonatate (Benzonatate 100 Mg Capsule) 100 mg PO TID PRN PRN Reason: Cough Stop: 09/09/20 02:53 Last Admin: 08/10/20 08:45 Dose: 100 mg Documented by: Bupropion HCl (Bupropion Hcl 100 Mg Tablet) 100 mg PO Q8H [facility] Stop: 09/11/20 19:59 Last Admin: 08/15/20 12:55 Dose: 100 mg Documented by: Dextrose (Dextrose 50% 50 Ml Syringe) 25 - 50 ml IV UD PRN; Protocol PRN Reason: Hypoglycemia Protocol Stop: 09/09/20 02:53 Last Admin: 08/14/20 18:13 Dose: 25 ml Documented by: Enoxaparin Sodium (Enoxaparin Inj 40 Mg/0.4 Ml Syr) [facility] Stop: 09/10/20 08:59 Last Admin: 08/15/20 07:22 Dose: 40 mg Documented by: Famotidine (Famotidine 20 Mg Tab) 20 mg PO BID [facility] Stop: 09/09/20 08:59 Last Admin: 08/15/20 07:20 Dose: 20 mg Documented by: Folic Acid (Folic Acid 1 Mg Tab) 1 mg PO QAM [facility] Stop: 09/09/20 08:59 Last Admin: 08/15/20 07:21 Dose: 1 mg Documented by: Glucagon (Glucagon For Inj 1 Mg Vial) 1 mg SQ UD PRN; Protocol PRN Reason: Hypoglycemia Protocol Stop: 09/09/20 02:53 Glucose (Glucose 10 Tabs/Tube) 4 - 8 tabs PO UD PRN; Protocol PRN Reason: Hypoglycemia Protocol Stop: 09/09/20 02:53 Glucose (Glucose 40% Gel 15 Gm Tube) 15 - 30 gm PO UD PRN; Protocol PRN Reason: Hypoglycemia Protocol Stop: 09/09/20 02:53 Heparin Sodium (Beef Lung) (Heparin 10 Unit/Ml 5 Ml Flush) 5 ml FLUSH PRN PRN PRN Reason: Flush Stop: 09/11/20 22:46 Midazolam HCl (Versed) 125 mg in 250 mls @ 6 mls/hr IV .[id number] [facility]; Protocol Stop: 09/10/20 21:29 Last Titration: 08/14/20 21:28 Dose: 0 mg/hr, 0 mls/hr Documented by: Dexamethasone Sodium Phosphate (6 mg/ Syringe) 1.5 mls @ 1 mls/min IV DAILY [facility] Stop: 08/21/20 08:59 Last Admin: 08/15/20 07:22 Dose: 1 mls/min Documented by: Dexmedetomidine HCl 400 mcg/ (Sodium Chloride) 100 mls @ 24.4 mls/hr IV .Q4H6M [facility]; Protocol Stop: 08/19/20 01:44 Last Titration: 08/15/20 12:15 Dose: Infused Documented by: Ceftriaxone Sodium 2,000 mg/ (Dextrose) 70 mls @ 140 mls/hr IV DAILY@1600 [facility]; Protocol Stop: 08/17/20 23:59 Insulin Aspart (Insulin Aspart 100 Units/Ml 3 Ml Pen) 0 units SC Q6 [facility] Stop: 09/09/20 02:53 Last Admin: 08/15/20 11:31 Dose: 7 units Documented by: Insulin Glargine (Insulin Glargine Solostar 100 Units/Ml 3 Ml Pen) 0 units SC Q12H [facility]; Protocol Stop: 09/13/20 00:00 Last Admin: 08/15/20 11:30 Dose: 15 units Documented by: Lamotrigine (Lamotrigine 100 Mg Tab) 150 mg PO HS [facility] Stop: 09/09/20 20:59 Last Admin: 08/14/20 21:34 Dose: 150 mg Documented by: Levalbuterol HCl (Levalbuterol Tartrate 15 Gm Hfa.Aer.Ad) 2 puffs INH Q6H PRN PRN Reason: Shortness Of Breath Or Wheezing Stop: 09/09/20 02:53 Midazolam HCl (Midazolam Bolus From Bag) 2 mg IV Q60M PRN PRN Reason: Sedation Stop: 09/10/20 21:22 Miscellaneous (Carbohydrates For Hypoglycemia ) 15 - 30 gm PO UD PRN PRN Reason: Hypoglycemia Protocol Stop: 09/09/20 02:53 Miscellaneous (Icu Electrolyte Replacement Protocol) 1 ea N/A BID@06,18 [facility]; Protocol Stop: 08/20/20 17:59 Last Admin: 08/15/20 07:12 Dose: Not Given Documented by: Miscellaneous Information (Pharmacy Glycemic Mgmt Consult) 1 ea N/A UD PRN PRN Reason: Consult Stop: 09/11/20 12:18 Multi-Ingredient Cream (Artificial Tears Op Oint 3.5 Gm Tube) 1 appln OP Q4 [facility] Stop: 09/11/20 11:59 Last Admin: 08/15/20 11:30 Dose: 1 appln Documented by: Multivitamins/Minerals (Multi Vit W/Minerals Liquid 15 Ml Udp) [facility] Stop: 09/12/20 08:59 Last Admin: 08/15/20 07:23 Dose: 15 ml Documented by: Nutritional Formula (Peptamen Intense Vhp 1.0 Sage 1,000 Ml Bag) 1,000 ml GT UD [facility]; Protocol Stop: 09/13/20 20:44 Oxycodone HCl (Oxycodone Hcl Ir 5 Mg Tab (Immediate Release)) 5 mg PO Q6H PRN PRN Reason: Moderate Pain (4,5,6) on NRS Stop: 08/28/20 20:35 Oxycodone HCl (Oxycodone Hcl Ir 5 Mg Tab (Immediate Release)) 10 mg PO Q6H PRN PRN Reason: Severe Pain (7,8,9,10) on NRS Stop: 08/28/20 20:35 Thiamine HCl (Thiamine Hcl 100 Mg Tab) 100 mg PO QAM [facility] Stop: 09/11/20 08:59 Last Admin: 08/15/20 07:20 Dose: 100 mg Documented by: Venlafaxine HCl (Venlafaxine Hcl 50 Mg Tab) 100 mg PO Q8H [facility] Stop: 09/11/20 19:59 Last Admin: 08/15/20 12:55 Dose: 100 mg Documented by: Zinc Sulfate (Zinc Sulfate 220 Mg Capsule) [facility] Stop: 09/11/20 08:59 Last Admin: 08/15/20 07:21 Dose: 220 mg Documented by:
[2020-08-15] MEDS ORDERED: NOREPINEPHRINE/D5W 8 MG/508 ML IV ONE (13:41)
[2020-08-15] MEDS: cefTRIAXone SODIUM 2,000 MG in DEXTROSE 5% 50 ML IV SCH (16:09)
[2020-08-15] MEDS: ACETAMINOPHEN 1000 MG/100 ML IV IV PRN (17:22)
[2020-08-15 21:27] LABS: iSTAT Art Bld Gas pCO2 Correct 43 mmHg (35-46); iSTAT Art Bld Gas pH Corrected 7.337 (7.35-7.45); iSTAT Arterial Blood Gas HCO3 23 meg/L (19-24); iSTAT Arterial Blood Gas pCO2 45 mmHg (35-46); iSTAT Arterial Blood Gas pH 7.33 (7.35-7.45); iSTAT Arterial Blood Gas pO2 80 mmHg (80-95); iSTAT Arterial Blood Gas pO2 C 77; iSTAT Carbon Dioxide 25 mmol/L (24-31); iSTAT FiO2 100 %; iSTAT Hematocrit 32 % (37-47); iSTAT Hemoglobin 10.9 g/dl (12.0-16.0); iSTAT Potassium 4.6 mmol/L (3.3-5.0); iSTAT Site Art Line; iSTAT Sodium 143 mmol/L (135-144)
[2020-08-15] MEDS: lamoTRIgine 100 MG TAB PO SCH (22:53)
[2020-08-15] MEDS: ATORVASTATIN 20 MG TAB PO SCH (22:53)
[2020-08-16] MEDS: ARTIFICIAL TEARS OP OINT 3.5 GM TUBE OP SCH ×6 (00:08→21:35)
[2020-08-16] MEDS: INSULIN GLARGINE SOLOSTAR 100 UNITS/ML 3 ML PEN SC SCH ×2 (00:09→12:27)
[2020-08-16] MEDS: INSULIN ASPART 100 UNITS/ML 3 ML PEN SC SCH ×5 (00:09→21:34)
[2020-08-16] MEDS: VENLAFAXINE HCL 50 MG TAB PO SCH ×3 (03:11→21:35)
[2020-08-16] MEDS: buPROPion HCl 100 MG TABLET PO SCH ×3 (03:12→21:35)
[2020-08-16 04:25] LABS: Basophils # (auto) 0.03 K/uL (0-0.2); Basophils % (auto) 0.2 %; Eosinophils # (auto) 0.01 K/uL (0-0.5); Eosinophils % (auto) 0.1 %; Hematocrit (blood only) 33.4 % (37-47); Hemoglobin 10.3 g/dL (12.0-16.0); Immature Granulocytes # (auto) 0.51 K/uL (0.00-0.02); Immature Granulocytes % (auto) 2.6 %; Lymphocytes % (auto) 4.6 %; Mean Corpuscular Hemoglobin 28.8 pg (25-34); Mean Corpuscular Hgb Conc 30.8 g/dL (32-36); Mean Corpuscular Volume 93.3 fL (80-100); Mean Platelet Volume 10.7 fL (7.4-10.4); Monocytes # (auto) 0.77 K/uL (0.11-0.59); Monocytes % (auto) 3.9 %; Neutrophils # (auto) 17.37 K/uL (1.4-6.5); Neutrophils % (auto) 88.6 %; Platelet Count 233 K/uL (130-400); RDW Coefficient of Variation 15.7 % (11.5-14.5); RDW Standard Deviation 53.9 fL (36.4-46.3); Red Blood Count 3.58 M/uL (4.2-5.4); White Blood Count 19.59 K/uL (4.8-10.8)
[2020-08-16 04:42] LABS: Alanine Aminotransferase 18 U/L (12-78); Albumin Level 1.4 gm/dl (3.4-5.0); Aspartate Aminotransferase 45 U/L (15-37); BUN Creatinine Ratio 57.9 (10-20); Bilirubin Direct < 0.1 mg/dl (0-0.2); Blood Urea Nitrogen 50 mg/dl (7-18); Calcium 8.9 mg/dl (8.5-10.1); Carbon Dioxide 26 mmol/L (21-32); Chloride 114 mmol/L (98-107); Creatinine Clr Calc Pharmacy 71.2 ml/min; Est GFR (African American) 83.3; Est GFR (Non-African American) 71.9; Glucose 179 mg/dl (70-99); Magnesium 2.7 mg/dl (1.8-2.4); Potassium 4.2 mmol/L (3.5-5.1); Sodium 144 mmol/L (136-145)
[2020-08-16 04:48] LABS: Alkaline Phosphatase 100 U/L (45-117); Bilirubin,Total 0.2 mg/dl (0.2-1); Phosphorus 3.1 mg/dl (2.5-4.9)
[2020-08-16] MEDS: ICU ELECTROLYTE REPLACEMENT PROTOCOL SCH ×2 (04:54→17:35)
[2020-08-16 05:06] LABS: iSTAT Art Bld Gas pCO2 Correct 42 mmHg (35-46); iSTAT Art Bld Gas pH Corrected 7.351 (7.35-7.45); iSTAT Arterial Blood Gas HCO3 23 meg/L (19-24); iSTAT Arterial Blood Gas pCO2 42 mmHg (35-46); iSTAT Arterial Blood Gas pH 7.35 (7.35-7.45); iSTAT Arterial Blood Gas pO2 72 mmHg (80-95); iSTAT Arterial Blood Gas pO2 C 72; iSTAT Carbon Dioxide 24 mmol/L (24-31); iSTAT FiO2 95 %; iSTAT Hematocrit 30 % (37-47); iSTAT Hemoglobin 10.2 g/dl (12.0-16.0); iSTAT Potassium 4.1 mmol/L (3.3-5.0); iSTAT Site Art Line; iSTAT Sodium 144 mmol/L (135-144)
--- NOTE | 2020-08-16 06:43 | XRay Report ---
KUB HISTORY: Status post placement of a feeding tube coresafe COMPARISON: KUB 08/15/2020 FINDINGS: Reposition feeding tube distal tip projects over the right midabdomen in the expected locat ion of the proximal duodenum. Prominent loops of small bowel within central abdomen measuring up to 0 .7 cm transversely. The right lateral and lower abdomen are excluded from the [id number]. Cardiome yudith with bilateral pulmonary opacities. No renal calculi. No ureteral calculi. No pneumoperitoneum o r pneumatosis. No fracture. IMPRESSION: Repositioned feeding tube distal tip now projects in the expected location of the proximal duodenum. ACT 112: Negative or not required by law. The above report was generated using voice recognition software. It may contain grammatical, syntax o r spelling errors. Electronically signed by: Cruz Retana M.D. 08/16/2020 6:41 AM
--- NOTE | 2020-08-16 07:27 | XRay Report ---
XR chest 1V portable CLINICAL HISTORY: f/u COMPARISON STUDY: Chest radiograph August 15, 2020 7:26 AM FINDINGS: Tracheostomy tube is in place. Tip of left subclavian central line projects over the distal left brachiocephalic vein. Tip of feeding tube projects over the proximal duodenum. There is no pneu mothorax. There may be small bilateral pleural effusions. Extensive bilateral airspace opacities have slightly increased. IMPRESSION: 1. Tracheostomy tube in place. 2. No pneumothorax. 3. Slight progression of extensive bilateral airspace opacities which favor an infectious process. ACT 112: Negative or not required by law. Electronically signed by: Bryan Morrison M.D. 08/16/2020 7:25 AM
[2020-08-16] MEDS: ASCORBIC ACID 500 MG TAB PO SCH (07:50)
[2020-08-16] MEDS: ASPIRIN 81 MG CHEW PO SCH ×2 (07:50→21:36)
[2020-08-16] MEDS: ZINC SULFATE 220 MG CAPSULE PO SCH (07:51)
[2020-08-16] MEDS: ATENOLOL 25 MG TABLET PO SCH (07:51)
[2020-08-16] MEDS: THIAMINE HCL 100 MG TAB PO SCH (07:51)
[2020-08-16] MEDS: DEXAMETHASONE SOD PHOSPHATE 6 MG in SYRINGE 0 ML IV SCH (07:52)
[2020-08-16] MEDS: FOLIC ACID 1 MG TAB PO SCH (07:52)
[2020-08-16] MEDS: ARIPiprazole 10 MG TAB PO SCH (07:52)
[2020-08-16] MEDS: MULTI VIT W/MINERALS LIQUID 15 ML UDP PO SCH (07:53)
[2020-08-16] MEDS: ENOXAPARIN INJ 40 MG/0.4 ML SYR SQ SCH (07:55)
[2020-08-16] MEDS: FAMOTIDINE 20 MG TAB PO SCH ×2 (07:56→21:35)
--- NOTE | 2020-08-16 12:46 | Pharmacy Report ---
Pharmacy Glycemic Short Note 2 - Date of Service August 16, 2020 - Glycemic Short BSG Results (Last 24 hours): 08/15/20 08/15/20 08/16/20 17:28 23:56 03:58 Glucose 179 H POC Glucose 207 H 175 H 08/16/20 08/16/20 05:59 12:05 Glucose POC Glucose 180 H 152 H OUTPATIENT ANTIDIABETIC REGIMEN: * Metformin 1gm PO BID * Sitagliptin 100mg daily * A1c = 7.7% 08/13/20 ASSESSMENT: 08/16 * Day 2 of resumed dexamethasone - BSG's increasing again with all BSG's above goal range yesterday * Will change Novolog to q4h checks. Continue tighter CHO ratio (adjusted last night) * Will adjust parameters of Lantus to give higher doses, depending on BSG * Patient's regimen will likely need significant adjustment if/when steroids are tapered/stopped PLAN FOR INPATIENT GLYCEMIC CONTROL: * Hold outpatient oral diabetes medications * Basal insulin * Lantus SQ BID * 8 units if BSG less than 140 mg/dL * 15 units if BSG 140 mg/dL or greater * Bolus insulin * NovoLog per scale q4h * Goal Range: Low 110 mg/dL - High 140 mg/dL * Correction Factor: 18 mg/dL/unit * Nutritional / Prandial insulin per carb ratio of 1 unit per 5 grams CHO consumed - please cover carbs in tube feeds PLAN FOR DISCHARGE: * to be determined
[2020-08-16] MEDS ORDERED: PROPOFOL IV EMULSION 10 MG/ML 100 ML VIAL IV ONE (12:50)
[2020-08-16] MEDS: ACETAMINOPHEN 1000 MG/100 ML IV IV PRN (13:13)
[2020-08-16] MEDS: DEXMEDETOMIDINE HCL 400 MCG in 0.9 % SODIUM CHLORIDE 96 ML IV SCH ×6 (13:26→22:44)
[2020-08-16] MEDS ORDERED: STAT IV Infusion **Titration per Protocol STA ×2 (13:28→14:56)
[2020-08-16] MEDS ORDERED: PROPOFOL BOLUS FROM BAG IV PRN (13:28)
--- NOTE | 2020-08-16 13:48 | Hospitalist Progress Note ---
Date of Service August 16, 2020 Assessment & Plan (1) Severe sepsis: Secondary to covid pneumonia and is complicated by UTI, Resuscitated and remains hemodynamically stable Clinically stable and getting better gradually Remains critical but stable Getting ceftriaxone to finish the course of antibiotic (2) Pneumonia due to COVID-19 virus: Received remdesivir and has been getting intravenous dexamethasone She received IV cefepime and doxycycline for possible superinfection with bacteria Remained stable but requiring high flow oxygen to maintain saturation Dexamethasone has been discontinued Continue with remdesivir-finish the course of remdesivir Required intubation on 08/11/20 Doxycycline has been discontinued due to interaction with sedation Has been receiving IV cefepime and that are changed to ceftriaxone Repeat chest x-ray shows improvement-we will continue current management Status post tracheotomy Condition got worse since this morning 08/16/2020 and requiring sedation with propofol and FiO2 100% to maintain saturation Discussed with the sink maker (3) Acute respiratory failure: Requiring high flow via nasal cannula at max capacity and proning. She is a patient who may ultimately end up on the ventilator. Has been requiring high flow oxygen and doing proning and BiPAP at nighttime Will ask for pulmonary evaluation as the patient may need intubation down the line Remains intubated since last evening of 08/11/2020 Repeat chest x-ray did show improvement of pneumonia and worsening on recent x- ray As above (4) UTI (urinary tract infection): She is covered empirically on broad-spectrum antibiotics.-Has been on cefepime De-escalate per clinical improvement and based on culture results. Remains on intravenous cefepime Cefepime has been changed to ceftriaxone (5) DMII (diabetes mellitus, type 2): Recent A1c reflects good control. She is currently at goal on basal bolus insulin, and is requiring more than normal in the setting of steroid use. (6) Mood disorder: Chronic, stable. Continue Abilify, venlafaxine, and Wellbutrin per home regimen. Has been getting Zyprexa as needed-on hold now (7) DVT prophylaxis: Lovenox Full code Disposition-continue PCU monitoring Nutrition NGT feeding Discussed with the and the son Condition is critical but stable Admission and Anticipated Discharge Date Admission Date: August 09, 2020 Subjective He is requiring patient was seen and examined in Covid unit He was admitted with severe sepsis secondary to Covid pneumonia and complicated by UTI She still is requiring high flow oxygen to maintain saturation Feels a little better today 08/12/2020 The patient was seen and examined in Covid unit She has been intubated since last evening He remains stable and sedated 08/13/2020 Patient was seen and examined in Covid unit She is intubated and sedated with pressor support 08/14/2020 The patient was seen and examined in Covid telemetry unit She remains intubated and sedated 08/15/2020 Patient was seen and examined in Covid unit She is a status post tracheotomy and remains sedated Condition is a little bit better compared with yesterday 08/16/2020 The patient was seen and examined in telemetry and Covid unit Her condition deteriorated this morning with very high blood pressure of systolic around 200, tachypnea and very low saturation of 70s Bee Raiser is aware and the patient was started with propofol infusion and she will be evaluated by sink maker sooner As per the nursing staff she opened her eyes this morning and she squeezed her hands but not during my examination Review of Systems Review of Systems: Unobtainable due to reduced consciousness Physical Exam Physical Exam: Status post tracheotomy with respiratory distress at rest Constitutional: well developed, well nourished, + ill appearing and + obese Eyes: Closed ENMT: external ear and nose normal, oropharynx normal Neck: trachea midline, no thyromegaly Respiratory: + respiratory distress (S/p tracheostomy) and + labored breathing Auscultation: + diminished lung sounds (Bilateral) and + crackles (Bibasilar crackles) Cardiovascular: Rate/Rhythm: regular rate and regular rhythm Heart Sounds: no murmur Extremities: + edema (Trace to 1+ edema bilaterally) Gastrointestinal (Abdomen): Inspection/Auscultation: normal bowel sounds; abdomen not distended Percussion/Palpation: abdomen soft; abdomen nontender Neurologic: Alert and awake, semiresponsive Psychiatric: A+Ox3, euthymic affect Lymphatic: no cervical or axillary lymphadenopathy Results & Data Results & Data ([facility]) Vital Signs (Past 12 Hours) Vital Signs Temp Pulse Resp BP Pulse Ox 08/16/20 13:01 37.8 C H 86 62 L 08/16/20 12:59 90 137/94 63 L 08/16/20 12:58 95 H 169/90 H 66 L 08/16/20 12:47 96 H 225/92 H 78 L 08/16/20 12:31 84 90 08/16/20 12:29 76 127/57 L 90 08/16/20 12:01 62 90 08/16/20 12:00 79 08/16/20 11:59 62 138/60 91 08/16/20 11:45 63 15 94 08/16/20 11:31 62 95 08/16/20 11:29 64 126/51 L 94 08/16/20 11:01 65 91 08/16/20 10:59 64 139/59 L 90 08/16/20 10:31 64 91 08/16/20 10:29 64 132/57 L 92 08/16/20 10:01 63 93 08/16/20 09:59 64 143/57 H 92 08/16/20 09:31 65 92 08/16/20 09:29 65 133/57 L 93 08/16/20 09:17 37.2 C 08/16/20 09:01 69 94 08/16/20 08:59 71 137/60 93 08/16/20 08:29 73 134/59 L 91 08/16/20 08:01 72 94 08/16/20 08:00 74 137/60 08/16/20 07:40 74 15 93 08/16/20 06:01 37.0 C 71 98 08/16/20 05:59 70 128/54 L 98 08/16/20 05:31 67 99 08/16/20 05:29 71 134/55 L 99 08/16/20 05:01 67 100 08/16/20 04:59 65 126/56 L 100 08/16/20 04:31 63 97 08/16/20 04:29 63 120/51 L 98 08/16/20 04:19 63 16 97 08/16/20 04:01 68 95 08/16/20 04:00 63 08/16/20 03:59 67 116/53 L 95 08/16/20 03:31 68 93 08/16/20 03:29 67 124/52 L 93 08/16/20 03:01 37.2 C 68 92 08/16/20 02:59 70 119/48 L 92 08/16/20 02:31 66 92 08/16/20 02:29 69 110/44 L 93 08/16/20 02:01 68 93 08/16/20 01:59 69 113/46 L 93 Laboratory Results Short CBC 08/16/20 Range/Units 03:58 WBC 19.59 H (4.8-10.8) K/uL Hgb 10.3 L (12.0-16.0) g/dL Hct 33.4 L (37-47) % Plt Count 233 (130-400) K/uL BMP 08/16/20 03:58 Sodium 144 Potassium 4.2 D Chloride 114 H Carbon Dioxide 26 BUN 50 H Creatinine 0.87 Glucose 179 H Calcium 8.9 Liver Function 08/16/20 Range/Units 03:58 Total Bilirubin 0.2 (0.2-1) mg/dl Direct Bilirubin < 0.1 (0-0.2) mg/dl AST 45 H (15-37) U/L ALT 18 (12-78) U/L Alkaline Phosphatase 100 (45-117) U/L Albumin 1.4 L (3.4-5.0) gm/dl Medications Administered Current Inpatient Medications Acetaminophen (Acetaminophen 325 Mg Tab) 325 mg PO Q6H PRN PRN Reason: Mild Pain Stop: 09/09/20 02:53 Last Admin: 08/14/20 21:37 Dose: 325 mg Documented by: Acetaminophen (Acetaminophen 1000 Mg/100 Ml Iv) 1,000 mg IV Q8H PRN PRN Reason: Fever Stop: 08/18/20 17:06 Last Admin: 08/16/20 13:13 Dose: 1,000 mg Documented by: Aripiprazole (Aripiprazole 10 Mg Tab) 10 mg PO [facility] Stop: 09/09/20 08:59 Last Admin: 08/16/20 07:52 Dose: 10 mg Documented by: Ascorbic Acid (Ascorbic Acid 500 Mg Tab) [facility] Stop: 09/11/20 08:59 Last Admin: 08/16/20 07:50 Dose: 1,000 mg Documented by: Aspirin (Aspirin 81 Mg Chew) 81 mg PO BID [facility] Stop: 09/11/20 20:59 Last Admin: 08/16/20 07:50 Dose: 81 mg Documented by: Atenolol (Atenolol 25 Mg Tablet) [facility] Stop: 09/09/20 08:59 Last Admin: 08/16/20 07:51 Dose: 25 mg Documented by: Atorvastatin Calcium (Atorvastatin 20 Mg Tab) 20 mg PO HS [facility] Stop: 09/09/20 20:59 Last Admin: 08/15/20 22:53 Dose: Not Given Documented by: Benzonatate (Benzonatate 100 Mg Capsule) 100 mg PO TID PRN PRN Reason: Cough Stop: 09/09/20 02:53 Last Admin: 08/10/20 08:45 Dose: 100 mg Documented by: Bupropion HCl (Bupropion Hcl 100 Mg Tablet) 100 mg PO Q8H [facility] Stop: 09/11/20 19:59 Last Admin: 08/16/20 11:49 Dose: 100 mg Documented by: Dextrose (Dextrose 50% 50 Ml Syringe) 25 - 50 ml IV UD PRN; Protocol PRN Reason: Hypoglycemia Protocol Stop: 09/09/20 02:53 Last Admin: 08/14/20 18:13 Dose: 25 ml Documented by: Enoxaparin Sodium (Enoxaparin Inj 40 Mg/0.4 Ml Syr) 40 mg SQ QAM [facility] Stop: 09/10/20 08:59 Last Admin: 08/16/20 07:55 Dose: 40 mg Documented by: Famotidine (Famotidine 20 Mg Tab) 20 mg PO BID [facility] Stop: 09/09/20 08:59 Last Admin: 08/16/20 07:56 Dose: 20 mg Documented by: Folic Acid (Folic Acid 1 Mg Tab) 1 mg PO QAM [facility] Stop: 09/09/20 08:59 Last Admin: 08/16/20 07:52 Dose: 1 mg Documented by: Glucagon (Glucagon For Inj 1 Mg Vial) 1 mg SQ UD PRN; Protocol PRN Reason: Hypoglycemia Protocol Stop: 09/09/20 02:53 Glucose (Glucose 10 Tabs/Tube) 4 - 8 tabs PO UD PRN; Protocol PRN Reason: Hypoglycemia Protocol Stop: 09/09/20 02:53 Glucose (Glucose 40% Gel 15 Gm Tube) 15 - 30 gm PO UD PRN; Protocol PRN Reason: Hypoglycemia Protocol Stop: 09/09/20 02:53 Heparin Sodium (Beef Lung) (Heparin 10 Unit/Ml 5 Ml Flush) 5 ml FLUSH PRN PRN PRN Reason: Flush Stop: 09/11/20 22:46 Midazolam HCl (Versed) 125 mg in 250 mls @ 6 mls/hr IV .[id number] [facility]; Protocol Stop: 09/10/20 21:29 Last Titration: 08/16/20 02:00 Dose: Infused Documented by: Dexamethasone Sodium Phosphate (6 mg/ Syringe) 1.5 mls @ 1 mls/min IV DAILY [facility] Stop: 08/21/20 08:59 Last Admin: 08/16/20 07:52 Dose: 1 mls/min Documented by: Dexmedetomidine HCl 400 mcg/ (Sodium Chloride) 100 mls @ 36.6 mls/hr IV .Q2H44M [facility]; Protocol Stop: 08/19/20 01:44 Last Admin: 08/16/20 13:26 Dose: 1.5 mcg/kg/hr, 36.6 mls/hr Documented by: Ceftriaxone Sodium 2,000 mg/ (Dextrose) 70 mls @ 140 mls/hr IV DAILY@1600 [facility]; Protocol Stop: 08/17/20 23:59 Last Infusion: 08/15/20 16:39 Dose: Infused Documented by: Propofol (Diprivan) 1,000 mg in 100 mls @ 11.844 mls/hr IV .Q8H27M [facility]; Protocol Stop: 08/19/20 13:29 Insulin Aspart (Insulin Aspart 100 Units/Ml 3 Ml Pen) 0 units SC Q4 [facility]; Protocol Stop: 09/11/20 11:59 Last Admin: 08/16/20 12:29 Dose: 4 units Documented by: Insulin Glargine (Insulin Glargine Solostar 100 Units/Ml 3 Ml Pen) 0 units SC Q12H [facility]; Protocol Stop: 09/15/20 19:59 Lamotrigine (Lamotrigine 100 Mg Tab) 150 mg PO HS [facility] Stop: 09/09/20 20:59 Last Admin: 08/15/20 22:53 Dose: Not Given Documented by: Levalbuterol HCl (Levalbuterol Tartrate 15 Gm Hfa.Aer.Ad) 2 puffs INH Q6H PRN PRN Reason: Shortness Of Breath Or Wheezing Stop: 09/09/20 02:53 Midazolam HCl (Midazolam Bolus From Bag) 2 mg IV Q60M PRN PRN Reason: Sedation Stop: 09/10/20 21:22 Miscellaneous (Carbohydrates For Hypoglycemia ) 15 - 30 gm PO UD PRN PRN Reason: Hypoglycemia Protocol Stop: 09/09/20 02:53 Miscellaneous (Icu Electrolyte Replacement Protocol) 1 ea N/A BID@,18 [facility]; Protocol Stop: 08/20/20 17:59 Last Admin: 08/16/20 04:54 Dose: Not Given Documented by: Miscellaneous Information (Pharmacy Glycemic Mgmt Consult) 1 ea N/A UD PRN PRN Reason: Consult Stop: 09/11/20 12:18 Multi-Ingredient Cream (Artificial Tears Op Oint 3.5 Gm Tube) 1 appln OP Q4 [facility] Stop: 09/11/20 11:59 Last Admin: 08/16/20 11:48 Dose: 1 appln Documented by: Multivitamins/Minerals (Multi Vit W/Minerals Liquid 15 Ml Udp) 15 ml PO QAM [facility] Stop: 09/12/20 08:59 Last Admin: 08/16/20 07:53 Dose: 15 ml Documented by: Nutritional Formula (Peptamen Intense Vhp 1.0 Sage 1,000 Ml Bag) 1,000 ml GT UD [facility]; Protocol Stop: 09/13/20 20:44 Oxycodone HCl (Oxycodone Hcl Ir 5 Mg Tab (Immediate Release)) 5 mg PO Q6H PRN PRN Reason: Moderate Pain (4,5,6) on NRS Stop: 08/28/20 20:35 Oxycodone HCl (Oxycodone Hcl Ir 5 Mg Tab (Immediate Release)) 10 mg PO Q6H PRN PRN Reason: Severe Pain (7,8,9,10) on NRS Stop: 08/28/20 20:35 Propofol (Propofol Bolus From Bag) 20 mg IV Q5M PRN PRN Reason: Sedation Stop: 08/19/20 13:27 Thiamine HCl (Thiamine Hcl 100 Mg Tab) 100 mg PO QAM [facility] Stop: 09/11/20 08:59 Last Admin: 08/16/20 07:51 Dose: 100 mg Documented by: Venlafaxine HCl (Venlafaxine Hcl 50 Mg Tab) 100 mg PO Q8H [facility] Stop: 09/11/20 19:59 Last Admin: 08/16/20 11:48 Dose: 100 mg Documented by: Zinc Sulfate (Zinc Sulfate 220 Mg Capsule) 220 mg PO QAM [facility] Stop: 09/11/20 08:59 Last Admin: 08/16/20 07:51 Dose: 220 mg Documented by:
[2020-08-16] MEDS ORDERED: MIDAZOLAM HCL 125MG/250ML D5W ONE ×2 (13:59→14:01)
[2020-08-16] MEDS ORDERED: fentaNYL citrate 100 MCG/2 ML VIAL IV PRN (15:03)
[2020-08-16] MEDS ORDERED: MIDAZOLAM BOLUS FROM BAG IV PRN (15:03)
[2020-08-16] MEDS ORDERED: MIDAZOLAM HCL 125 MG/250 ML BAG IV SCH (15:03)
--- NOTE | 2020-08-16 15:19 | Critical Care Progress Note ---
Date of Service August 16, 2020 Assessment & Plan (1) Acute hypoxemic respiratory failure due to COVID-19: Impression: 59-year-old female with COVID-19 pneumonia and acute hypoxemic respiratory flare earlier/ARDS. 24-hour events: The patient was transitioned to pressure support ventilation at very high settings. Her plateau pressures on the settings were in the mid 40s and she was taking tidal volumes of 500 to 650 cc which is well above the 6 cc/kg limit. Despite this she was still requiring an FiO2 of 95 to 100% and PEEP levels as high as 15-18. I reassessed the patient this morning and transitioned her to arginate ventilation however the patient became very agitated and dropped her oxygen saturation requiring escalation of sedation. She is not ready to wean as of yet. Recommendations: 1. Neurologic: Continue aggressive sedation with propofol and Precedex. The patient needs to essentially ride the ventilator at this point time so we will add back fentanyl and Versed. If we are unable to keep her adequately sedated to allow for low tidal volumes and appropriate plateau pressures, neuromuscular blockade will be initiated. Patient is currently on her home dose of Abilify Wellbutrin and Effexor. Continue thiamine 2. Pulmonary: Diffuse pulmonary infiltrates likely consistent with COVID-19 pneumonia. Cannot rule a component of fluid overload as well. Her current oxygen requirements preclude any weaning of mechanical ventilation and the patient is clearly not ready to breathe on her own. On the current settings, she is outside of target of tidal volume, plateau pressure and I am concerned that this may be contributing to advancing her lung injury. Will transition to 6 cc/kg ideal body weight and adjust respiratory rate to try and optimize PCO2 is much as possible. She will need to be much more aggressively sedated to allow for lung healing. Target PaO2 greater than 55. She is empirically on antibiotics, see comments regarding ID below. This would cover a UTI. Will obtain respiratory cultures for sputum nichole given her elevated white blood cell count. She is currently on dexamethasone per protocol but is now approximately 6 days out. She may benefit from late-phase ARDS dexamethasone but will see how she does over the next 24 hours 3. Cardiovascular: Now hypertensive. We will see how she does with escalation of sedatives. On atenolol. Hold additional antihypertensives for now as I suspect that this should improve. 4. ID: Citrobacter UTI currently on Rocephin day #2 previously she received 7 days of cefepime and 1 day of doxycycline. We will discontinue the Rocephin and await sputum culture prior to additional antibiotics. Discontinue vitamin C and zinc as these have not been shown to be beneficial in the treatment for Covid. 5. GI: Continue tube feeds per nutrition and advance as tolerated to goal. Bowel regimen as needed. 6. Renal: Electrolytes currently acceptable. Replete as needed. Diuretics with attention to serum creatinine. Acid-base status stable. 7. Endocrine: Glycemic control per ICU protocol. 8. Prophylaxis: Tube feeding at goal. Continue Lovenox. The patient remains critically ill with unclear clinical outcome. Patient's was being updated by the admitting hospitalist today. She is DNR/DNI but is already undergone tracheostomy. Do not think she is a candidate for add itional aggressive interventions such as ECMO at this point in time. Admission and Anticipated Discharge Date Admission Date: August 09, 2020 Subjective Patient is intubated and sedated Review of Systems Review of Systems: Unobtainable due to endotracheal tube Physical Exam Constitutional: + morbidly obese and + mechanically ventilated Intubated and sedated Neck: trachea midline, no thyromegaly Respiratory: Coarse bronchovesicular breath sounds bilaterally without wheezing Cardiovascular: RRR, no murmur, no edema Gastrointestinal (Abdomen): normal bowel sounds, soft, nontender, no hepatosplenomegaly Musculoskeletal: Extremities: extremities normal to inspection Skin: no rashes, warm and dry Neurologic: Sedated Lymphatic: no cervical lymphadenopathy Results & Data Results & Data ([facility]) Vital Signs (Past 12 Hours) Vital Signs Temp Pulse Resp BP Pulse Ox 08/16/20 13:01 37.8 C H 86 62 L 08/16/20 12:59 90 137/94 63 L 08/16/20 12:58 95 H 169/90 H 66 L 08/16/20 12:47 96 H 225/92 H 78 L 08/16/20 12:31 84 90 08/16/20 12:29 76 127/57 L 90 08/16/20 12:01 62 90 08/16/20 12:00 79 08/16/20 11:59 62 138/60 91 08/16/20 11:45 63 15 94 08/16/20 11:31 62 95 08/16/20 11:29 64 126/51 L 94 08/16/20 11:01 65 91 08/16/20 10:59 64 139/59 L 90 08/16/20 10:31 64 91 08/16/20 10:29 64 132/57 L 92 08/16/20 10:01 63 93 08/16/20 09:59 64 143/57 H 92 08/16/20 09:31 65 92 08/16/20 09:29 65 133/57 L 93 08/16/20 09:17 37.2 C 08/16/20 09:01 69 94 08/16/20 08:59 71 137/60 93 08/16/20 08:29 73 134/59 L 91 08/16/20 08:01 72 94 08/16/20 08:00 74 137/60 08/16/20 07:40 74 15 93 08/16/20 06:01 37.0 C 71 98 08/16/20 05:59 70 128/54 L 98 08/16/20 05:31 67 99 08/16/20 05:29 71 134/55 L 99 08/16/20 05:01 67 100 08/16/20 04:59 65 126/56 L 100 08/16/20 04:31 63 97 08/16/20 04:29 63 120/51 L 98 08/16/20 04:19 63 16 97 08/16/20 04:01 68 95 08/16/20 04:00 63 08/16/20 03:59 67 116/53 L 95 08/16/20 03:31 68 93 08/16/20 03:29 67 124/52 L 93 Laboratory Results 08/16/20 03:58 08/16/20 03:58 No respiratory cultures Diagnostic Findings Chest x-ray from yesterday was independently reviewed. It demonstrates diffuse patchy bilateral infiltrates. Coding Level of Care Code Critical Care 1st 30-74 mins Diagnoses Acute hypoxemic respiratory failure due to COVID-19 U07.1; J96.01 Time Spent (min) 50
[2020-08-16] MEDS: propofoL 1,000 MG/100 ML VIAL IV SCH ×3 (15:48→22:44)
[2020-08-16] MEDS: cefTRIAXone SODIUM 2,000 MG in DEXTROSE 5% 50 ML IV SCH (16:16)
[2020-08-16] MEDS: fentaNYL DRIP 1,250 MCG/250 ML BAG IV SCH ×2 (16:17→22:43)
[2020-08-16] MEDS: VECURONIUM BROMIDE 10 MG VIAL IV PRN (17:12)
[2020-08-16] MEDS ORDERED: INSULIN GLARGINE SOLOSTAR 100 UNITS/ML 3 ML PEN SC SCH (20:00)
[2020-08-16] MEDS: lamoTRIgine 100 MG TAB PO SCH (21:35)
[2020-08-16] MEDS: ATORVASTATIN 20 MG TAB PO SCH (21:35)
[2020-08-16] MEDS: FUROSEMIDE 40 MG in SYRINGE 0 ML IV SCH (21:36)
[2020-08-17] MEDS: ARTIFICIAL TEARS OP OINT 3.5 GM TUBE OP SCH ×4 (00:21→12:21)
[2020-08-17] MEDS: INSULIN ASPART 100 UNITS/ML 3 ML PEN SC SCH ×4 (00:22→12:22)
[2020-08-17] MEDS: DEXMEDETOMIDINE HCL 400 MCG in 0.9 % SODIUM CHLORIDE 96 ML IV SCH ×6 (00:40→14:37)
[2020-08-17] MEDS: VECURONIUM BROMIDE 10 MG VIAL IV PRN (01:12)
[2020-08-17] MEDS: propofoL 1,000 MG/100 ML VIAL IV SCH ×3 (02:09→12:17)
[2020-08-17 04:05] LABS: iSTAT Art Bld Gas pCO2 Correct 69 mmHg (35-46); iSTAT Art Bld Gas pH Corrected 7.223 (7.35-7.45); iSTAT Arterial Blood Gas HCO3 29 meg/L (19-24); iSTAT Arterial Blood Gas pCO2 71 mmHg (35-46); iSTAT Arterial Blood Gas pH 7.22 (7.35-7.45); iSTAT Arterial Blood Gas pO2 95 mmHg (80-95); iSTAT Arterial Blood Gas pO2 C 93; iSTAT Carbon Dioxide 31 mmol/L (24-31); iSTAT FiO2 100 %; iSTAT Hematocrit 31 % (37-47); iSTAT Hemoglobin 10.5 g/dl (12.0-16.0); iSTAT Potassium 4.6 mmol/L (3.3-5.0); iSTAT Site Art Line; iSTAT Sodium 143 mmol/L (135-144)
[2020-08-17] MEDS: VENLAFAXINE HCL 50 MG TAB PO SCH ×2 (05:35→12:20)
[2020-08-17] MEDS: buPROPion HCl 100 MG TABLET PO SCH ×2 (05:35→12:20)
[2020-08-17 06:27] LABS: Basophils # (auto) 0.04 K/uL (0-0.2); Basophils % (auto) 0.2 %; Hemoglobin 10.1 g/dL (12.0-16.0); Immature Granulocytes # (auto) 0.56 K/uL (0.00-0.02); Immature Granulocytes % (auto) 2.9 %; Lymphocytes # (auto) 0.86 K/uL (1.2-3.4); Lymphocytes % (auto) 4.4 %; Mean Corpuscular Hemoglobin 28.5 pg (25-34); Mean Corpuscular Hgb Conc 29.7 g/dL (32-36); Mean Corpuscular Volume 95.8 fL (80-100); Mean Platelet Volume 10.5 fL (7.4-10.4); Monocytes # (auto) 0.57 K/uL (0.11-0.59); Monocytes % (auto) 2.9 %; Neutrophils # (auto) 17.53 K/uL (1.4-6.5); Neutrophils % (auto) 89.6 %; Nucleated RBC # (auto) 0.03 K/uL (0-0); Nucleated RBC % (auto) 0.1 %; Platelet Count 257 K/uL (130-400); RDW Coefficient of Variation 15.7 % (11.5-14.5); RDW Standard Deviation 55.3 fL (36.4-46.3); Red Blood Count 3.55 M/uL (4.2-5.4); White Blood Count 19.56 K/uL (4.8-10.8)
[2020-08-17 07:05] LABS: Albumin Level 1.3 gm/dl (3.4-5.0); BUN Creatinine Ratio 53.3 (10-20); Calcium 8.7 mg/dl (8.5-10.1); Creatinine Clr Calc Pharmacy 67.9 ml/min; Est GFR (African American) 76.9; Est GFR (Non-African American) 66.3; Magnesium 2.3 mg/dl (1.8-2.4); Potassium 4.4 mmol/L (3.5-5.1)
[2020-08-17 07:18] LABS: Albumin Globulin Ratio 0.3 (0.9-2); Bilirubin,Total 0.2 mg/dl (0.2-1); Globulin 4.6 gm/dl (2.5-4.0); Phosphorus 4.1 mg/dl (2.5-4.9); Total Protein 5.9 gm/dl (6.4-8.2)
[2020-08-17] MEDS ORDERED: NovoLIN-N (NPH) PER UNIT CHARGE SQ SCH (08:00)
[2020-08-17] MEDS: ICU ELECTROLYTE REPLACEMENT PROTOCOL SCH (08:09)
[2020-08-17] MEDS ORDERED: FUROSEMIDE 40 MG/4 ML VIAL IV ONE (08:16)
[2020-08-17] MEDS: ASPIRIN 81 MG CHEW PO SCH (08:18)
[2020-08-17] MEDS: MULTI VIT W/MINERALS LIQUID 15 ML UDP PO SCH (08:19)
[2020-08-17] MEDS: ENOXAPARIN INJ 40 MG/0.4 ML SYR SQ SCH (08:22)
[2020-08-17] MEDS: ATENOLOL 25 MG TABLET PO SCH (08:22)
[2020-08-17] MEDS: THIAMINE HCL 100 MG TAB PO SCH (08:23)
[2020-08-17] MEDS: FAMOTIDINE 20 MG TAB PO SCH (08:24)
[2020-08-17] MEDS: ARIPiprazole 10 MG TAB PO SCH (08:24)
--- NOTE | 2020-08-17 08:48 | XRay Report ---
XR chest 1V portable CLINICAL HISTORY: Respiratory failure COMPARISON STUDY: 08/15/2020 FINDINGS: Tracheostomy tube remains in position. There is a left subclavian central venous catheter. There is an enteric tube passing into the stomach. There are persistent right greater than left exten sive bilateral pulmonary airspace opacities.[ IMPRESSION: Persistent bilateral pulmonary airspace opacities similar to the preceding study ACT 112: Negative or not required by law. Electronically signed by: Evans Kim M.D. 08/17/2020 8:47 AM
[2020-08-17] MEDS: DEXAMETHASONE SOD PHOSPHATE 6 MG in SYRINGE 0 ML IV SCH (08:50)
[2020-08-17] MEDS: FUROSEMIDE 40 MG in SYRINGE 0 ML IV SCH (08:57)
[2020-08-17] MEDS: fentaNYL DRIP 1,250 MCG/250 ML BAG IV SCH (10:20)
--- NOTE | 2020-08-17 10:47 | Pharmacy Report ---
Pharmacy Glycemic Short Note 2 - Date of Service August 17, 2020 - Glycemic Short BSG Results (Last 24 hours): 08/16/20 08/16/20 08/16/20 12:05 17:31 20:17 Glucose POC Glucose 152 H 293 H 286 H 08/17/20 08/17/20 08/17/20 00:10 05:26 05:53 Glucose 224 H POC Glucose 250 H 235 H 08/17/20 07:53 Glucose POC Glucose 186 H OUTPATIENT ANTIDIABETIC REGIMEN: * Metformin 1gm PO BID * Sitagliptin 100mg daily * A1c = 7.7% 08/13/20 ASSESSMENT: 08/17 * BSG's increased yesterday. Etiology is likely multifactorial - CHO in TF was not covered for some of the checks overnight, and CHO ratio may itself also be insufficient. Also - elevations occurred at times where dexamethasone likely to have the most prominent effect (lunch good, but dinner and HS elevated) * Will give one-time dose of NPH to help with the prandial elevations associated with dex * Will tighten CHO ratio 08/16 * Day 2 of resumed dexamethasone - BSG's increasing again with all BSG's above goal range yesterday * Will change Novolog to q4h checks. Continue tighter CHO ratio (adjusted last night) * Will adjust parameters of Lantus to give higher doses, depending on BSG * Patient's regimen will likely need significant adjustment if/when steroids are tapered/stopped PLAN FOR INPATIENT GLYCEMIC CONTROL: * Hold outpatient oral diabetes medications * Basal insulin * NPH 15 units SC x1 this AM * Lantus 15-20 units HS * Bolus insulin * NovoLog per scale q4h * Goal Range: Low 110 mg/dL - High 140 mg/dL * Correction Factor: 15 mg/dL/unit * Nutritional / Prandial insulin per carb ratio of 1 unit per 4 grams CHO consumed - please cover carbs in tube feeds PLAN FOR DISCHARGE: * to be determined
--- NOTE | 2020-08-17 12:30 | Critical Care Progress Note ---
Date of Service August 17, 2020 Assessment & Plan (1) Acute hypoxemic respiratory failure due to COVID-19: Impression: 59-year-old female with COVID-19 pneumonia and acute hypoxemic respiratory flare earlier/ARDS. 24-hour events: Over the last 24 hours the patient has had persistent issues with intermittent desaturation. These tend to correlate when the patient is dyssynchronous with the ventilator. She also becomes hypotensive during these episodes. She has required intermittent bolus dosing of paralytics. Respiratory therapy and nursing have noted that the patient's tracheostomy tube is somewhat positional and if moved at all she has significant air leak with loss of volume and positive pressure. Recommendations: 1. Neurologic: Continue aggressive sedation with propofol, fentanyl, Versed and Precedex. The patient needs to essentially ride the ventilator at this point time so we will add back fentanyl and Versed. If we are unable to keep her adequately sedated to allow for low tidal volumes and appropriate plateau pressures, neuromuscular blockade will be initiated. Patient is currently on her home dose of Abilify Wellbutrin and Effexor. Continue thiamine 2. Pulmonary: Diffuse pulmonary infiltrates likely consistent with COVID-19 pneumonia. Cannot rule a component of fluid overload as well. Her current oxygen requirements preclude any weaning of mechanical ventilation and the patient is clearly not ready to breathe on her own. Continue ARDS net ventilatory strategy. Will change CLAUDETTE ratio to 1-1.5 to try and improve oxygenation. She has not responded to prone positioning previously. Target PaO2 greater than 55. She is empirically on antibiotics, see comments regarding ID below. This would cover a UTI. Will obtain respiratory cultures for sputum nichole given her elevated white blood cell count. She is currently on dexamethasone per protocol but is now approximately 6 days out. She may benefit from late-phase ARDS dexamethasone but will see how she does over the next 24 ho urs. What is described by nursing may suggest that the current trach may be too short and may be migrating out of the tracheotomy site. Will evaluate with flexible endoscopy and consider changing to XLT 3. Cardiovascular: Now hypertensive. We will see how she does with escalation of sedatives. On atenolol. Hold additional antihypertensives for now as I suspect that this should improve. 4. ID: Citrobacter UTI currently on Rocephin day #3 previously she received 7 days of cefepime and 1 day of doxycycline. We will discontinue the Rocephin and await sputum culture prior to additional antibiotics. Discontinue vitamin C and zinc as these have not been shown to be beneficial in the treatment for Covid. 5. GI: Continue tube feeds per nutrition and advance as tolerated to goal. Bowel regimen as needed. 6. Renal: Electrolytes currently acceptable. Replete as needed. Diuretics w ith attention to serum creatinine. Acid-base status stable. 7. Endocrine: Glycemic control per ICU protocol. 8. Prophylaxis: Tube feeding at goal. Continue Lovenox. 50 minutes critical care time up to this point managing patient with life- threatening illness and comorbidities. The patient remains critically ill with unclear clinical outcome. Discussed with yesterday. She is DNR/DNI but is already undergone tracheostomy. Do not think she is a candidate for additional aggressive interventions such as ECMO at this point in time. Admission and Anticipated Discharge Date Admission Date: August 09, 2020 Subjective intubated and sedated Review of Systems Review of Systems: Unobtainable due to endotracheal tube Physical Exam Constitutional: + morbidly obese and + mechanically ventilated Neck: trachea midline, no thyromegaly Cardiovascular: RRR, no murmur, no edema Gastrointestinal (Abdomen): normal bowel sounds, soft, nontender, no hepatosplenomegaly Musculoskeletal: Extremities: extremities normal to inspection Skin: no rashes, warm and dry Lymphatic: no cervical lymphadenopathy Results & Data Results & Data ([facility]) Vital Signs (Past 12 Hours) Vital Signs Temp Pulse Resp BP Pulse Ox 08/17/20 09:52 69 08/17/20 09:00 37 C 69 137/54 L 95 08/17/20 08:30 62 104/43 L 75 L 08/17/20 08:20 66 32 H 94 08/17/20 08:00 69 137/54 L 96 08/17/20 07:30 66 139/64 83 L 08/17/20 07:12 64 119/51 L 08/17/20 07:00 37.3 C 65 123/52 L 93 08/17/20 06:30 64 130/58 L 98 08/17/20 06:00 65 124/58 L 96 08/17/20 05:30 65 126/55 L 95 08/17/20 05:00 68 122/54 L 92 08/17/20 04:31 67 91 08/17/20 04:30 66 126/56 L 88 L 08/17/20 04:01 67 92 08/17/20 04:00 67 123/55 L 88 L 08/17/20 03:31 66 94 08/17/20 03:30 66 117/52 L 08/17/20 03:28 66 28 H 95 08/17/20 03:01 66 96 08/17/20 03:00 67 111/51 L 08/17/20 02:31 68 97 08/17/20 02:30 68 113/49 L 08/17/20 02:01 69 98 08/17/20 02:00 69 119/51 L 96 08/17/20 01:31 69 96 08/17/20 01:30 69 126/53 L 95 08/17/20 01:01 67 95 08/17/20 01:00 67 143/63 H 91 08/17/20 00:31 67 91 08/17/20 00:30 66 134/56 L 90 Laboratory Results 08/17/20 05:53 08/17/20 05:53 08/09/20 08/09/20 20:45 21:39 ABG pH Cancelled 7.41 ABG pCO2 Cancelled 37 ABG pO2 Cancelled 52 L ABG HCO3 Cancelled 22 ABG O2 Saturation Cancelled 85.8 L ABG Base Excess Cancelled -1.9 Diagnostic Findings CXR reviewed. Coding Level of Care Code Critical Care 1st 30-74 mins Diagnoses Acute hypoxemic respiratory failure due to COVID-19 U07.1; J96.01
--- NOTE | 2020-08-17 14:56 | Procedure Note ---
Procedure Note Date of Service August 17, 2020 Procedure: 1. Flexible endoscopy of the upper airway and through the existing tracheostomy tube. 2. Video laryngoscopy. 3. Tracheostomy with placement of a 6 oh cuffed endotracheal tube cleaner: Dr. Morton Consent patient was intubated and sedated. The procedure was deemed to be urge nt as the current endotracheal tube had a leak. Anesthesia: The patient was maintained on fentanyl Versed and Precedex as well as propofol. 10 mg of vecuronium were administered prior to commencement of the procedure. Indication: Tracheostomy tube with significant leak and the patient experiencing continued episodes of desaturation with any movement. Suspicion that the tracheostomy tube may not be seated appropriately. Patient was in the ICU on the ventilator. She was placed on her percent FiO2. We initially attempted to place the patient supine but she quickly desaturated into the 70% range. She was placed in a semirecumbent position. She was placed on her percent FiO2 on the ventilator and we were able to achieve oxygen goals of around 90% on a PEEP of 14. Analgesia and paralytics have been administered previously. Once the patient was adequately sedated and paralyzed, the flexible laryngoscope was passed through the existing tracheostomy. It was verified to be within the airway and with the patient's head in midline position and neutrally extended/flexed, was found to be about 5 cm off the wolf. With manipulation of the tube caudally, there was a significant leak which resolved with repositioning of the tube aiming more cephalad. The flexible laryngoscope was then removed from the tracheostomy tube and the patient reattached to the ventilator. I attempted to pass the tube through the oropharynx and through the nares. Visualization was difficult as the soft tissues were extremely edematous and there were thick mucoid secretions overlying the glottis. Eventually after extensive suctioning, I was able to clear enough to evaluate the vocal cords. I used the flexible laryngoscope to pass through the vocal cords and I was able to visualize the balloon of the endotracheal tube which was sitting right at the tracheotomy site and appeared to migrate with any significant movement of the tracheostomy tube resulting in significant leak. Decision was made to proceed with replacement of the existing tracheostomy tube with an XLT. The stay sutures for the existing tracheostomy were clipped. A new distal XLT 6 oh tracheostomy tube was prepared and the balloon checked. Once the patient had been preoxygenated, she was detached from the ventilator and an airway exchange catheter passed through the existing tracheostomy tube into the airway. The existing tracheostomy tube was removed. The newly prepped 6 oh XLT tube was attempted to be passed over the existing airway catheter into the airway but unfortunately became hung up on the tracheal rings and would not pass into the airway. Multiple attempts were made to redirect this. The patient eventually demonstrated oxygen desaturations and decision was made to try and reestablish patency with the airway via orotracheal intubation. I return to the head of the bed. [facility] scope was used to perform video laryngoscopy. There were extensive bloody secretions noted within the oropharynx and above the vocal cords which were suctioned free. The airway was very anterior and the soft tissues were extraordinarily edematous. I could visualize the Dobbhoff feeding tube extending in the esophagus but was unable to directly visualize retinoids glottis or vocal cords directly. At that point time the patient continued to demonstrate instability with hypotension and low oxygen levels. Should be noted that she was undergoing fck-oivbi-spdu ventilation in between attempts to reestablish the airway. I made the decision to proceed with surgical airway and returned back to the neck. Using an 11 blade scalpel I was able to extend the skin incisions and with an index finger was able to palpate along the tract and feel the tracheal rings and palpate the tracheotomy. Initial attempts were made to pass a guiding catheter however these were unsuccessful and there was risk of potentially creating a false passage. I elected to place a 6 oh cuffed endotracheal tube. This was done under direct guidance with my index finger. Once the 6 oh tube was secured I passed to the flexible laryngoscope through the existing tube and verified it to be within the airway. There were extensive bloody secretions noted which were lavaged free with saline bullets. The patient underwent bag- valve ventilation through the newly placed 6 oh tracheostomy/tracheal tube. Unfortunately during the course of establishing her airway the patient became hypotensive and required multiple rounds of epinephrine, atropine, as well as extensive CPR. The patient's was notified of the change in clinical st atus during this course and had called in to state that he did not wish the patient to undergo CPR consistent with her prior DNR/DNI status. Given the fact that this current decompensation had occurred in the setting of a procedure, we elected to continue to try and resuscitate the patient and we were able to get return of spontaneous circulation with oxygen saturations in the high 70% range for a brief period of time however the patient's rhythm rapidly became quite agonal and wide with loss of blood pressure. I talked to the patient's on the phone who verified desires to not undergo CPR or cardioversion or additional heroic efforts. Based on his request, when the patient lost pulses again, no additional resuscitative efforts were undertaken and the patient subsequently . Coding CPT Codes ENT - ENT: 44747 Incision of windpipe ([id number]) Pulmonary/Thoracic - Pulmonary and Thoracic: 55654 Tracheotomy tube change ([id number]) Pulmonary/Thoracic - Pulmonary and Thoracic: 82785 Dx bronchoscopy/wash ([id number]) Resuscitation - Resuscitation: 35713 Heart/lung resuscitation CPR ([id number]) [facility] [place] Codes (Charges) ENT ENT: 75637 Incision of windpipe Pulmonary/Thoracic Procedure 2: Pulmonary and Thoracic: 19038 Tracheotomy tube change Procedure 3: Pulmonary and Thoracic: 36854 Dx bronchoscopy/wash Resuscitation Resuscitation: 17797 Heart/lung resuscitation CPR
--- NOTE | 2020-08-17 15:48 | Death Pronouncement Note ---
Date of Service August 17, 2020 Pronouncement Note Admission Date Admission Date: August 09, 2020 Date and Time of Date of : 08/17/20 Time of : 13:57 PCOD Preliminary cause of : COVID-19 virus infection Contributing Factors (1) Acute hypoxemic respiratory failure due to COVID-19: Hospital Course Hospital Course: (1) Acute hypoxemic respiratory failure due to COVID-19: Recommendations: 1. Neurologic: Continue aggressive sedation with propofol, fentanyl, Versed and Precedex. The patient needs to essentially ride the ventilator at this point time so we will add back fentanyl and Versed. If we are unable to keep her adequately sedated to allow for low tidal volumes and appropriate plateau pressures, neuromuscular blockade will be initiated. Patient is currently on her home dose of Abilify Wellbutrin and Effexor. Continue thiamine 2. Pulmonary: Diffuse pulmonary infiltrates likely consistent with COVID-19 pneumonia. Cannot rule a component of fluid overload as well. Her current oxygen requirements preclude any weaning of mechanical ventilation and the patient is clearly not ready to breathe on her own. Continue ARDS net ventilatory strategy. Will change CLAUDETTE ratio to 1-1.5 to try and improve oxygenation. She has not responded to prone positioning previously. Target PaO2 greater than 55. She is empirically on antibiotics, see comments regarding ID below. This would cover a UTI. Will obtain respiratory cultures for sputum nichole given her elevated white blood cell count. She is currently on dexamethasone per protocol but is now approximately 6 days out. She may benefit from late-phase ARDS dexamethasone but will see how she does over the next 24 hours. What is described by nursing may suggest that the current trach may be too short and may be migrating out of the tracheotomy site. Will evaluate with flexible endoscopy and consider changing to XLT 3. Cardiovascular: Now hypertensive. We will see how she does with escalation of sedatives. On atenolol. Hold additional antihypertensives for now as I suspect that this should improve. 4. ID: Citrobacter UTI currently on Rocephin day #3 previously she received 7 days of cefepime and 1 day of doxycycline. We will discontinue the Rocephin and await sputum culture prior to additional antibiotics. Discontinue vitamin C and zinc as these have not been shown to be beneficial in the treatment for Covid. 5. GI: Continue tube feeds per nutrition and advance as tolerated to goal. Bowel regimen as needed. 6. Renal: Electrolytes currently acceptable. Replete as needed. Diuretics with attention to serum creatinine. Acid-base status stable. 7. Endocrine: Glycemic control per ICU protocol. 8. Prophylaxis: Tube feeding at goal. Continue Lovenox. Summary Additional details: Impression: 59-year-old female with COVID-19 pneumonia and acute hypoxemic respiratory flare earlier/ARDS. 24-hour events: Over the last 24 hours the patient has had persistent issues with intermittent desaturation. These tend to correlate when the patient is dyssynchronous with the ventilator. She also becomes hypotensive during these episodes. She has required intermittent bolus dosing of paralytics. Respiratory therapy and nursing have noted that the patient's tracheostomy tube is somewhat positional and if moved at all she has significant air leak with loss of volume and positive pressure. Patient underwent percutaneous tracheostomy 08/14/[address] Baljinder Gordon. Nursing reported that trach collar had a persistent leak and patient was have persistent desaturations. Rhinolaryngoscopy was performed and it was determined that the tracheostomy tube should be a Shiley #6 XLT. During the procedure, the patient became hypoxic and desaturated resulting in cardiopulmonary arrest. High quality CPR was performed. Patient was resuscitated and a 6.0 endotracheal tube was successfully placed in the tracheal os. Patient was oxygenated with a valve bag mask but developed ongoing cardiac arrest. The patient's was contacted and asked that CPR be stopped. Patient was pronounced at 13:57. Cause of : Hypoxemic respiratory failure secondary to COVID-19 virus pneumonia Additional Data Confirmation of : no pulse, no respirations and no heart sounds Family: contacted Attending/PCP notified?: Yes Attending physician: Dave Mcdonough MD Was code activated?: Yes Autopsy requested?: No light out examiner notified?: No Organ bank notified?: No Advance directives: No Coding Level of Care Code D/C Day Management >30 mins Medical Decision Making High Complexity Diagnoses Acute hypoxemic respiratory failure due to COVID-19 U07.1; J96.01 Time Spent (min) 70
--- NOTE | 2020-08-17 16:55 | Discharge Summary ---
Date of Service August 17, 2020 Admission HPI Per Admitting Provider History obtained from patient and records. Medical history significant for hypertension, hyperlipidemia, ADD, mood disorder, DM 2 on oral medications. 1 week history of flulike symptoms later followed by junky cough symptoms, shortness of breath. 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 Patient later noted achy abdominal pain, increased urinary frequency/inc ontinence symptoms and loose stools. Chest pain from coughing. Patient O2 sats 80s upon arrival at the ER. Decadron given for COVID-19 pneumonia. Cefepime given for UTI. 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 Admission Exam Per Admitting Provider Physical Exam: GENERAL: Slightly uncomfortable, ill looking, minimal respiratory distress, morbidly obese SKIN: Normal color, warm HEENT: Bespectacled, pale palpebral conjunctivae, no ptosis, dry buccal mucosa, nasal cannula in place NECK : Supple, short neck, no tenderness CHEST : Decreased breath sounds, expiratory wheezes , no tenderness HEART : RRR, no obvious murmurs ABDOMEN: Some distention, nontender EXTREMITIES : No LE swelling/tenderness, no other conspicuous deformities noted NEUROLOGIC : Coherent, no facial asymmetry, no other gross focality Principal Diagnosis Discharge Data Allergies Allergy/AdvReac Type Severity Reaction Status Date / Time No Known Allergies Allergy Verified 08/09/20 18:45 Consultations 08/09/20 19:50 ED Decision to Admit Stat 08/11/20 14:32 Consult Portfolio Consultant Routine Ordered Studies 08/09/20 18:24 CT angio chest PE protocol Stat 08/09/20 22:09 CT abd pelvis wo con Urgent 08/11/20 21:23 US point of care ultrasound Routine Hospital Course (1) Acute respiratory failure: Requiring high flow via nasal cannula at max capacity and proning. She is a patient who may ultimately end up on the ventilator. Has been requiring high flow oxygen and doing proning and BiPAP at nighttime Will ask for pulmonary evaluation as the patient may need intubation down the line Remains intubated since last evening of 08/11/2020 Repeat chest x-ray did show improvement of pneumonia and worsening on recent x- ray As above Her condition deteriorated and she at 1357 hrs. on 08/17/2020 Causes of - Acute hypoxemic respiratory failure COVID-19 pneumonia Secondary causes Morbid obesity Diabetes mellitus Please see note for detailed information; (2) Pneumonia due to COVID-19 virus: Received remdesivir and has been getting intravenous dexamethasone She received IV cefepime and doxycycline for possible superinfection with bacteria Remained stable but requiring high flow oxygen to maintain saturation Dexamethasone has been discontinued Continue with remdesivir-finish the course of remdesivir Required intubation on 08/11/20 Doxycycline has been discontinued due to interaction with sedation Has been receiving IV cefepime and that are changed to ceftriaxone Repeat chest x-ray shows improvement-we will continue current management Status post tracheotomy Condition got worse since this morning 08/16/2020 and requiring sedation with propofol and FiO2 100% to maintain saturation Discussed with the shift commander (3) DMII (diabetes mellitus, type 2): Recent A1c reflects good control. She is currently at goal on basal bolus insulin, and is requiring more than normal in the setting of steroid use. (4) Severe sepsis: Secondary to covid pneumonia and is complicated by UTI, Resuscitated and remains hemodynamically stable Clinically stable and getting better gradually Remains critical but stable Getting ceftriaxone to finish the course of antibiotic (5) UTI (urinary tract infection): She is covered empirically on broad-spectrum antibiotics.-Has been on cefepime De-escalate per clinical improvement and based on culture results. Remains on intravenous cefepime Cefepime has been changed to ceftriaxone (6) Mood disorder: Chronic, stable. Continue Abilify, venlafaxine, and Wellbutrin per home regimen. Has been getting Zyprexa as needed-on hold now (7) DVT prophylaxis: Lovenox Full code Disposition-continue PCU monitoring Nutrition NGT feeding Discussed with the and the son Condition is critical but stable Total Time Total Time Spent Total Time Spent (In Minutes): 20 minutes Total Time Includes: Other Discharge Plan Discharge Items Patient Disposition: Discharge Diagnosis: The patient : Causes of - Acute hypoxic respiratory failure COVID-19 pneumonia Obesity Diabetes mellitus Addtl Attending Provider Instructions: Family members were informed
[2020-08-17] MEDS ORDERED: INSULIN GLARGINE SOLOSTAR 100 UNITS/ML 3 ML PEN SC SCH (21:00)
[2020-08-17] MEDS ORDERED: ATROPINE SULFATE 0.1 MG/ML 10ML SYR IV ONE (21:27)
[2020-08-17] MEDS ORDERED: AMIODARONE 150MG / 100ML D5W IV ONE (21:33)
[2020-08-18] MEDS ORDERED: DOPamine 400MG / 250ML D5W IV ONE (20:04)
== END 2020-08-17 16:59 | disposition expired | DRG 4 ==
LOC: ED 15:34 → 2E 21:09 → SUATTDRO 21:09 → 2E 08-10 01:19